=== PATIENT | female | born 1960 | race Hispanic/Latino ===

== ENCOUNTER → 2017-10-07 10:34 | Outpatient (CLI) | payer MEDICAID, SELFPAY ==
--- NOTE | 2017-10-07 10:44 | STE_ITS ---
Reason For Study: CHEST PRESSURE Stress Results Protocol: Waqar Protocol Maximum Predicted HR: 162 bpm Target HR: 138 bpm% Max imum Predicted HR: 82 % DurationHeart Rate Stage (mm:ss) (bpm) BPCom ment BASELINE 96 120/70 STAGE 1 3:00 12 1 140/82 STAGE 2 1:44 13 3 / TIR ED,SOB, FATIGUED, COULD NOT HOLD ON ANYMORE RECOVERY 87 130/82 Stress Duration: 4:44 mm:ss Maximum Stress HR: 133 bpm Baseline Echocardiogram Findings The estimated ejection fraction is 65 %. Stress Echo Wall motion Data Resting WMIntermediate WMStress WM Resting Wall Motion Wall Motion Stress No regional wall motion No regional wall motion abnormalities noted. abnormalities noted. EKG Data The baseline ECG demonstrates normal sinus rhythm with at rate of _ beats per minute. The patient exercised according to the regular Waqar protocol for a total duration of 4:44. The maximum heart rate attained was 148 beats per minute. This was 91% of maximum predicted heart rate. The patient exercised into stage 2 of the Waqar protocol. During stress, there were no ST or T wave changes noted to suggest ischemia. No clinical angina was noted. No arrhythmias noted. Interpretation Summary The estimated ejection fraction is 65 %. Normal adequate treadmill echocardiogram. Negative for ischemia by EKG and echocardiographic criteria. No anginal symptoms noted. No arrhythmias noted. Normal blood pressure response to exercise. Below average exercise capacity for age. Test terminated due to dyspnea and fatigue. Final LVEF of 75%. Mrdering Physician: Dieudonne, Performed By: Corrie De Leon RDCS
== END ==
PROVIDERS: Visit Provider Physician Assistant
DX: R07.9 Chest pain, unspecified (principal)
CPT/HCPCS: 93017; 93350

== ENCOUNTER 2018-03-18 11:32 | Emergency (ER) | payer MEDICAID, SELFPAY ==
[2018-03-18 11:33] VITALS: BP 153/84; PULSE 68; RESP 18; TEMP 36.6; O2SAT 99; BMI 33.6
--- NOTE | 2018-03-18 12:20 | ED.VISSUMM ---
- ER Visit Summary Date of Service: 03/18/18 Chief Complaint: Chronic back pain History of Present Illness: The patient is a 57 F who presents with chronic back pain. She reports chronic back pain for 6 years. This is been worse over the last several months. She does have a primary care physician and states she saw him about 1 month ago the pain she is currently complaining of is similar in character and location to her previous pain but is just worse. She complains of lower back pain more so on the left radiating down the left leg. She also complains of pain radiating towards both groins again this is chronic for years. No recent fall or injury. No fevers urinary retention or fecal incontinence. No numbness or weakness. She also complains of neck pain. She has had epidural injections but no other back surgery. Physical Examination: Afebrile vitals unremarkable Patient resting comfortably no distress Moist mucous membranes Heart regular rate and rhythm Lungs are clear Abdomen soft nontender nondistended Patient does have midline and paraspinal tenderness diffusely in the lower back Straight leg raise is negative in supine position bilaterally Normal strength and sensation of lower extremities with palpable dorsalis pedis pulses and 5 out of 5 dorsiflexion, plantarflexion, extensor hallucis longus Test Results: Not indicated Emergency Department Course and Treatment: Patient was treated here with intramuscular Toradol and Norflex and advised to contact her primary care physician for follow-up. She understands to return for new or worsening symptoms and was discharged home. I did attempt to do an [facility] report but the website is down. Treatment Plan: [] Disposition: Discharge Impression: Chronic back pain This note was generated with [employer] dictation software. It may contain incorrect words, spelling, and punctuation that were not noted in review of the chart prior to signing ED Disposition - Plan for ED Patient: Chief Complaint: Back
--- NOTE | 2018-03-18 12:23 | DCINST.ED_ITS ---
ED Disposition - Plan for ED Patient: Chief Complaint: Back Instructions: ED Spasm Back No Trauma Referrals: Kayla Bro PA [PHYSICIAN OBSTETRICS NURSE] -
[2018-03-18] MEDS: Ketorolac 60 MG/2 ML Vial IM (12:26)
[2018-03-18] MEDS: Orphenadrine 60 MG/2 ML Ampul IM (12:27)
--- OUTSIDE RECORDS SUMMARY | 2018-03-18 12:47 | XMS RPT_ITS ---
:1960 Author Organization OHIP Care Team Providers Name Role Phone JAYCEE CHOUDHARY MD Admitting Unavailable JAYCEE CHOUDHARY MD Attending Unavailable JAYCEE CHOUDHARY MD Primary Care Unavailable BRO, Kayla ARTHUR (PA-C) Attending Unavailable BRO, Kayla ARTHUR (PA-C) Referring Unavailable BRO, Kayla ARTHUR (PA-C) Referring Unavailable JAYCEE CHOUDHARY Referring Unavailable BRO, Kayla ARTHUR (PA-C) Attending Unavailable BRO, Kayla ARTHUR (PA-C) Referring Unavailable BRO, Kayla ARTHUR (PA-C) Attending Unavailable BRO, Kayla ARTHUR (PA-C) Referring Unavailable BRO, Kayla ARTHUR (PA-C) Referring Unavailable BRO, Kayla ARTHUR (PA-C) Referring Unavailable MARC CHAVEZ Attending Unavailable BRO, Kayla ARTHUR (PA-C) Referring Unavailable BRO, Kayla ARTHUR (PA-C) Referring Unavailable BRO, Kayla ARTHUR (PA-C) Referring Unavailable BRO, Kayla ARTHUR (PA-C) Referring Unavailable BRO, Kayla ARTHUR (PA-C) Attending Unavailable BRO, Kayla ARTHUR (PA-C) Referring Unavailable FERNANDO THOMAS Attending Unavailable BRO, Kayla ARTHUR (PA-C) Referring Unavailable ASHLEY ARANGO) Attending Unavailable BRO, Kayla ARTHUR (PA-C) Referring Unavailable BRO, Kayla ARTHUR (PA-C) Attending Unavailable BRO, Kayla ARTHUR (PA-C) Referring Unavailable BRO, Kayla ARTHUR (PA-C) Referring Unavailable BRO, Kayla ARTHUR (PA-C) Referring Unavailable BRO, Kayla ARTHUR (PA-C) Referring Unavailable Kayla BRO (JOSE ANGELC) Referring Unavailable Augusto Gandhi Attending Unavailable Kayla Bro Primary Care Unavailable PROBLEMS PROBLEMS DATE TYPE CONDITION / CODE ATTENDING STATUS SOURCE 07/06/2017 Active Mixed hyperlipidemia NA Active [place] / E78.2(ICD-10) Clinic Main [place] Repository 05/28/2017 Active Other specified NA Active [place] abnormal [facility] immunological [place] findings in serum / Repository R76.8(ICD-10) 01/02/2018 Active Type 2 diabetes NA Active [place] mellitus without [facility] complications / [place] E11.9(ICD-10) Repository 01/02/2018 Active Lower abdominal NA Active [place] pain, unspecified / Clinic Main R10.30(ICD-10) [place] Repository 01/02/2018 Active 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 Main 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 / [place] Z79.899(ICD-10) Repository 09/12/2017 Active Chest pain, NA Active [place] unspecified / Clinic Main R07.9(ICD-10) [place] Repository 07/25/2017 Active Encounter for NA Active [place] screening mammogram Clinic [facility] for malignant [place] neoplasm of breast / Repository Z12.31(ICD-10) 07/06/2017 Active Low back pain / NA Active [place] M54.5(ICD-10) Clinic Main [place] Repository 06/24/2017 Active Unknown / NA Active [place] UNK(Unknown) Clinic Main [place] Repository 06/01/2017 Active Encounter for NA Active [place] screening for lipoid Clinic Main disorders / [place] Z13.220(ICD-10) Repository 05/25/2017 Active Essential (primary) NA Active [place] hypertension / Clinic Main I10(ICD-10) [place] Repository 05/25/2017 Active Fibromyalgia / NA Active [place] M79.7(ICD-10) Clinic Main [place] Repository 05/25/2017 Active Pain in unspecified NA Active [place] joint / Clinic Main M25.50(ICD-10) [place] Repository 05/25/2017 Active Hyperglycemia, NA Active [place] unspecified / Clinic Main R73.9(ICD-10) [place] Repository 04/20/2017 Principle Essential (primary) JAYCEE CHOUDHARY Active [place] Diagnosis hypertension / [facility] I10(ICD-10) Hospital Repository 04/20/2017 Secondary Type 2 diabetes JAYCEE CHOUDHARY Active [place] Diagnosis mellitus without MD [facility] / Hospital E119(ICD-10) Repository PROCEDURES PROCEDURES No Procedure Records FoundRESULTS RESULTS DISCHARGE INSTRUCTION Observed: 03/18/2018 Status: F Source: [place] 12:23 PM [facility] REPOSITORY [facility] Records [address] [place] [address]Svrajfnjl Hvzpmthlyht05/22/18 1222MR#: [id number] Acct: [id number]: REILLY JACOB Rep #: [id number]: 1960 57 From: Augusto Gandhi MDPCP: Status: PRE ERED Disposition- Plan for ED Patient:Chief Complaint: BackInstructions: ED Spasm Back No TraumaReferrals:Kayla Bro PA [PHYSICIAN AUTOMATIC MOLD SANDER] -What to do if you have ProblemsFor any increased pain, shortness of breath, bleeding, nausea or vomiting, chest pain, or anyunexpected problems, contact your Primary Care Provider. Call [facility] ([phone])or report to the closest Emergency Room.Call 911 if necessary.03/18/18 1223 <Electronically signed by Augusto Gandhi MD&gt ;Date Augusto Gandhi [facility] Signature (If Indicated): Date ___CC: EMERGENCY DEPARTMENT Observed: 03/18/2018 Status: F Source: [place] SUMMARY 12:22 PM [facility] REPOSIT[facility] Records [id number] [place] [address]Qvuykirpn Department Psrxpww53/22/18 1220MR#: [id number] Acct: [id number]: REILLY JACOB Rep #: [id number]: 1960 57 From: Augusto Gandhi MDPCP: Status: PRE ER- ER Visit SummaryDate of Service: 03/18/18Chief Complaint: Chronic back painHistory of Present Illness: The patient is a 57 F who presents with chronic back pain. Makedaorts chronic back pain for 6 years. This is been worse over the last several months. Osmany have a primary care physician and states she saw him about 1 month ago the pain she iscurrently complaining of is similar in character and location to her previous pain but is justworse. She complains of lower back pain more so on the left radiating down the left leg. Shealso complains of pain radiating towards both groins again this is chronic for years. Norecent fall or injury. No fevers urinary retention or fecal incontinence. No numbness orweakness. She also complains of neck pain. She has had epidural injections but no other backsurgery.Physical Examination: Afebrile vitals unremarkablePatient resting comfortably no distressMoist mucous membranesHeart regular rate and rhythmLungs are clearAbdomen soft nontender nondistendedPatient does have midline and paraspinal tenderness diffusely in the lower backStraight leg raise is negative in supine position bilaterallyNormal strength and sensation of lower extremities with palpable dorsalis pedis pulses and 5out of 5 dorsiflexion, plantarflexion, extensor hallucis longusTest Results: Not indicatedEmergency Department Course and Treatment: Patient was treated here with intramuscular [place] Norflex and advised to contact her primary care physician for follow-up. She understandsto return for new or worsening symptoms and was discharged home. I did attempt to do an OARRSreport but the website is down.Treatment Plan: []Disposition: DischargeImpression: Chronic back painThis note was generated with LucidEra dictation software. It may contain incorrect words,spelling, and punctuation that were not noted in review of the chart prior to signingED Disposition- Plan for ED Patient:Chief Complaint: BackWhat to do if you have ProblemsFor any increased pain, shortness of breath, bleeding, nausea or vomiting, chest pain, or anyunexpected problems, contact your Primary Care Provider. Call [facility] ([phone])or report to the closest Emergency Room.Call 911 if necessary.03/18/18 1222 <Electronically signed by Augusto Gandhi MD&gt ;Date Augusto COSTAosiveronica Signature (If Indicated): Date ___CC: PROGRESS Observed: 03/08/2018 Status: COMPLETED Source: [place] 4:18 PM [facility] REPOSITORY HNO ID: [id number]: Kimberly Louie) Alejaervice: (none)Author Type: SonographerType: Progress NotesFiled: 03/08/2018 4:19 PMNote Text: Radiology Service Progress NotePATIENT NAME: Reilly CanelaRN: [id number] OF SERVICE: March 08, 2018TIME: 4:18 PMPATIENT IDENTITY VERIFICATION COMPLETED USING TWO (2) METHODS: Patientconfirmed name verbally and Date of .PATIENT GENDER DATA: Female. status: : NoBreastfeeding status: N/APATIENT RELEVANT IMPLANT DATA REVIEWED: Not ApplicableRADIOLOGY DEPARTMENT: UltrasoundPERIPHERAL IV DATA: Not applicableSIGNED BY: KIMBERLY GOODWIN RDMS RVTSept2017 4:18 PM CNCO Observed: 03/08/2018 Status: COMPLETED Source: [place] 4:15 PM [facility] REPOSITORY HNO ID: [id number]: Mammography CoordinatorService: (none)Author Type: PhysicianType: LetterFiled: 03/09/2018 11:33 PMNote Text: March 08, 2018 PID: [id number] [address] [place] [place], [place] [address]Jmvp Ms. Alves,Your recent breast imaging examination performed on 03/08/2018 showed anarea that we believe is probably benign (not cancer). A six monthfollow-up is recommended to ensure your breast health. Please [phone] to schedule an appointment for these tests if you have notalready done so.Early detection of cancer is very important. We also understandrecommendations regarding breast cancer screening are controversial.Please discuss with your primary care provider which strategy is best foryou and whether a mammogram is right for you.Your breast images and report will be kept on file here as part of yourpermanent medical record and are available for your continuing care.Thank you for allowing us to help in meeting your health care needs.Sincerely,Dr. Mahoney [facility]iologistW[facility] (# mo Follow-up) CNCO Observed: 03/08/2018 Status: COMPLETED Source: [place] 4:15 PM [facility] REPOSITORY HNO ID: [id number]: Mammography CoordinatorService: (none)Author Type: PhysicianType: LetterFiled: 03/09/2018 11:33 PMNote Text: March 08, 2018 PID: [id number] [address] [place], [place] [address]Igzy Ms. Alves,Your recent breast imaging examination performed on 03/08/2018 showed anarea that we believe is probably benign (not cancer). A six monthfollow-up is recommended to ensure your breast health. Please [phone] to schedule an appointment for these tests if you have notalready done so.Early detection of cancer is very important. We also understandrecommendations regarding breast cancer screening are controversial.Please discuss with your primary care provider which strategy is best foryou and whether a mammogram is right for you.Your breast images and report will be kept on file here as part of yourpermanent medical record and are available for your continuing care.Thank you for allowing us to help in meeting your health care needs.Sincerely,Dr. Mahoney [facility] (# mo Follow-up) [facility] US BREAST LTD Observed: 03/08/2018 Status: F Source: [facility] 4:13 PM [facility] REPOSITORY * * *Final Report* * *DATE OF EXAM: Mar 08 2018 4:13PM [id number] [id number] - [facility] US BREAST LTD LT / REASON: 6 MONTH LEFT BREAST / ABNORMAL MAMMOGRAM * * * * Physician Interpretation * * * * # [id number] - [facility] DIAGNOSTIC LTUNILATERAL LEFT DIGITAL DIAGNOSTIC MAMMOGRAM WITH CAD: 03/08/2018HISTORY: 6 Month Left Breast / Abnormal Mammogram.RESULT:TECHNIQUE: The study was acquired using full field digital technology and interpreted from soft copy.Current study was also evaluated with a Computer Aided Detection (CAD).Comparison is made to exams dated: 08/03/2017 mammogram - [facility] and 07/25/2017 mammogram - [facility].There are scattered fibroglandular elements in the left breast.There is a 6 mm mass in the left breast at 12 o'clock middle depth.There also is a 4 mm oval equal density focal asymmetry with an obscured margin in the left breast at 12 o'clock anterior depth.No other significant masses or calcifications are seen in the breast.INCOMPLETE: NEEDS ADDITIONAL IMAGING EVALUATIONThe 6 mm mass in the left breast at 12 o'clock middle depth needs additional evaluation.The 4 mm oval equal density focal asymmetry in the left breast at 12 o'clock anterior depth is consistent with a cyst and is benign.#[id number] - [facility] US BREAST LTD LTULTRASOUND OF LEFT BREAST: 03/08/2018RESULT:Comparison is made to exams dated: 08/03/2017 mammogram - [facility] and 07/25/2017 mammogram - [facility].Real- time ultrasound of the left breast was performed.There is a 6 mm area of fibrocystic tissue in the left breast at 12 o'clock middle depth.There also is a benign 4 mm cyst in the left breast at 12 o'clock anterior depth.IMPRESSION: PROBABLY BENIGN - SHORT TERM INTERVAL FOLLOW-UP RECOMMENDED - FOLLOW-UP RECOMMENDEDThe 6 mm area of fibrocystic tissue in the left breast at 12 o'clock middle depth is probably benign.The 4 mm cyst in the left breast at 12 o'clock anterior depth is benign.A follow-up mammogram and an ultrasound in 6 months is recommended to demonstrate stability.Juan Morales/elyse:03/08/2018 16:15:41Imaging Technologist: Madai FREY (R)), [facility] sent[facility] # Mo FU Mammogram BI- RADS: 0 Incomplete: needs additional imaging evaluation Ultrasound BI-RADS: 3 Probably benign finding - short term interval follow-up recommendedTranscriptionist: PenradTranscribe Date/Time: Mar 08 2018 3:49PDictated by : JUAN AHUMADA MDThis examination was interpreted and the report reviewed and electronically signed by: JUAN AHUMADA MD on Mar 08 2018 4:15PM [id number] [facility] DIAGNOSTIC LT Observed: 03/08/2018 Status: F Source: [place] 3:49 PM [facility] REPOSITORY * * *Final Report* * *DATE OF EXAM: Mar 08 2018 3:49PM [id number] - [facility] DIAGNOSTIC LT / REASON: 6 MONTH LEFT BREAST / ABNORMAL MAMMOGRAM * * * * Physician Interpretation * * * *RESULT: #[id number] - [facility] DIAGNOSTIC LTUNILATERAL LEFT DIGITAL DIAGNOSTIC MAMMOGRAM WITH CAD: 03/08/2018HISTORY: 6 Month Left Breast / Abnormal Mammogram.RESULT:TECHNIQUE: The study was acquired using full field digital technology and interpreted from soft copy.Current study was also evaluated with a Computer Aided Detection (CAD).Comparison is made to exams dated: 08/03/2017 mammogram - [facility] and 07/25/2017 mammogram - [facility].There are scattered fibroglandular elements in the left breast.There is a 6 mm mass in the left breast at 12 o'clock middle depth.There also is a 4 mm oval equal density focal asymmetry with an obscured margin in the left breast at 12 o'clock anterior depth.No other significant masses or calcifications are seen in the breast.INCOMPLETE: NEEDS ADDITIONAL IMAGING EVALUATIONThe 6 mm mass in the left breast at 12 o'clock middle depth needs additional evaluation.The 4 mm oval equal density focal asymmetry in the left breast at 12 o'clock anterior depth is consistent with a cyst and is benign.#[id number] - [facility] US BREAST LTD LTULTRASOUND OF LEFT BREAST: 03/08/2018RESULT:Comparison is made to exams dated: 08/03/2017 mammogram - [facility] and 07/25/2017 mammogram - [facility].Real- time ultrasound of the left breast was performed.There is a 6 mm area of fibrocystic tissue in the left breast at 12 o'clock middle depth.There also is a benign 4 mm cyst in the left breast at 12 o'clock anterior depth.IMPRESSION: PROBABLY BENIGN - SHORT TERM INTERVAL FOLLOW-UP RECOMMENDED - FOLLOW-UP RECOMMENDEDThe 6 mm area of fibrocystic tissue in the left breast at 12 o'clock middle depth is probably benign.The 4 mm cyst in the left breast at 12 o'clock anterior depth is benign.A follow-up mammogram and an ultrasound in 6 months is recommended to demonstrate stability.Juan Morales/elyse:03/08/2018 16:15:41Imaging Technologist: Madai FAUST)(Kayla), [facility] Centerletter sent: # Mo FU Mammogram BI- RADS: 0 Incomplete: needs additional imaging evaluation Ultrasound BI-RADS: 3 Probably benign finding - short term interval follow-up recommendedTranscriptionist: ElyseTranscribcecilia Date/Time: Mar 08 2018 3:49PDictated by: JUAN AHUMADA MDThilesli examination was interpreted and the report reviewed and electronically signed by: JUAN AHUMADA MD on Mar 08 2018 4:15PM [id number] [id number] Observed: 01/02/2018 Status: COMPLETED Source: [place] 11:53 AM [facility] REPOSITORY HNO ID: [id number]: Kayla Arthur (Keren) BartonService: (none)Author Type: Physician AssistantType: Progress NotesFiled: 01/02/2018 9:05 PMNote Text:57 year old female with assistance of a web user experience strategist via telephonec/o1. Pain is good and bad at times. Feels much better on gabapentin. Saw who agrees not lupus. Note reviewed. Recommended PT but patient wasnot able to meet set appointment, distance issues. Today having neck painmostly on the left side posteriorly. No pain radiating. Patient is notcurrently working.2. Blood sugars 127, 131 at home.Hemoglobin A1C (%)Date Value05/25/2017 6.8 ) 3. HTN controlled: taking medication without complication. Denies chestpain, headache , dizziness.HISTORIESFAMILY HISTORYProblem Relation Age of Onset- Cancer Mother uterine- Diabetes Father- Other [OTHER] Father of sepsis due to liver failure- Hypertension Sister- Diabetes Sister- Hypertension Brother- Diabetes BrotherPAST MEDICAL HISTORYDiagnosis Date- Chronic back pain- Chronic neck pain- Elevated glucose 07/2016- HTN (hypertension) 2013PAST SURGICAL HISTORYProcedure Laterality Date- SECTION HX 3 times- HYSTERECTOMY 2007Social History Marital status: Single Spouse name: Years of education: Number of children:Social History Main Topics Smoking status: Former Smoker Packs/ day: 0.00 Years: 0.00 Smokeless tobacco: Never Used Alcohol use: No Drug use : No Sexual activity: NoACTIVE PROBLEM LISTAna PositivePolyarthralgiaControlled Type 2 Diabetes Mellitus Without Complication (Hcc)Neck PainLumbar PainHyperlipidemia, MixedFibromyalgiaPrecordial PainCurrent Outpatient Prescriptions:glipiZIDE (GLUCOTROL) 5 mg tablet Take 1 tablet by mouth once daily. Disp:90 tablet Rfl: 1atorvastatin (LIPITOR) 10 mg tablet Take 1 tablet by mouth daily atbedtime. For cholesterol. Disp: 30 tablet Rfl: 5losartan (COZAAR) 25 mg tablet Take 1 tablet by mouth once daily. Disp: 30tablet Rfl: 5mupirocin (BACTROBAN) 2 % ointment Apply 1 application to affected areathree times daily. Location: scalp Disp: 15 g Rfl: 1baclofen (LIORESAL) 20 mg tablet Take 20 mg by mouth once daily. Disp:Rfl: gabapentin (NEURONTIN) 300 mg capsule Start with one tab daily x 5 daysHS, if tolerated increase to BID x 5 days and then to TID if toleratedDisp: 90 capsule Rfl: 5clotrimazole-betamethasone (LOTRISONE) cream Apply 1 application toaffected area twice daily. UNTIL CLEAR FOR UP TO 2-3 WEEKS Disp: 15 g Rfl:1blood sugar diagnostic (BLOOD GLUCOSE TEST) test strip Test blood sugar(s)1 times daily. Dx: Type 2 DM - Controlled E11.9 Insulin: No Disp: 50Strip Rfl: 5Lancets lancets Test blood sugar(s) 1 times daily. Dx: Type 2 DM -Controlled E11.9 Insulin: No Disp: 100 Each Rfl : 3Blood-Glucose Meter monitoring kit Glucose Meter of Choice - Kit - Dx:Other DM Code hyperglycemia Disp: 1 Each Rfl: 0No current facility-administered medications for this visit.DILATED RETINAL EXAM due on 1959URINE ALBUMIN CREATININE RATIO due on 1975ONE PNEUMOVAX PRIOR TO AGE 65 due on 1975DTAP,TDAP,TD(1 - Tdap) due on 1978PAP EVERY 5 YEARS due on 1989HPV EVERY 5 YEARS due on 1989COLORECTAL CANCER SCREENING,SEE MODIFIER due on 2009ZOSTER VACCINE (SHINGRIX)(1 of 2) due on 2009HBA1C due on 11/22/2017EXAM:BP 138/80 Pulse 68 Temp 37.2 ?C (99 ?F) (Tympanic) Resp 16 Wt80.3 kg (177 lb) BMI 32.37 kg/m?Pleasant overweight adult woman in no acute distress. Alert and orientedall spheres. Normal affect and cognition. Speech normal. No deficits tolearning or comprehension.Skin warm, dry, pink to lips and nailbeds. Normal turgor.Respirations regular and unlabored.HEENT WNL. TM's clear. Nose and oropharynx free from injection or lesion.No cervical lymph nodes. Thyroid non-tender, no masses.Chest CTA. HRRR without murmur or gallop.Neck is supple with full range of motion, complains of pain on palpationover lateral muscles and also somewhat with range of motion. Myofascialrelease to tender trigger points with improvement.Extrem: no clubbing , cyanosis, edema. Extremities are warm and pink withprompt capillary refill.ASSESSMENT/PLAN:1. Polyarthralgia - ICD9: 719.49, ICD10: M25.50 (primary diagnosis)Followed by Dr. Arango: recheck 1 year.2. Hyperlipidemia, mixed - ICD9 : 272.2, ICD10: E78.2- good control- Continue current medication.- ATORVASTATIN 10 MG TABLET3. Controlled type 2 diabetes mellitus without complication, unspecifiedwhether fci insulin use (HCC) - ICD9: 250.00, ICD10: E11.9Controlled.- Continue current medications- LOSARTAN 25 MG TABLET- GLIPIZIDE 5 MG TABLET- complete outstanding labs.4. Fibromyalgia - ICD9: 729.1, ICD10: M79.7- BACLOFEN 20 MG TABLET5. Hypertension, essential - ICD9: 401.9, ICD10: I10- good control- Recommended regular aerobic exercise.- Recommend home blood pressure monitoring, to bring results in on nextvisit- Goal of BP <130/80- LOSARTAN 25 MG TABLET f /u 6 monthsM Kelvin Bro PA-C CNOV Observed: 01/02/2018 Status: COMPLETED Source: [place] 11:00 AM [facility] REPOSITORY Office Visit (FAMPWS) ---------REILLY ALVES ([id number]) 1960 F [employer] Time Provider Department01/02/18 11:00 AM Kayla BRO) FAMPWS During your visit today, we recorded the following information about you: Temperature Pulse Respiration Blood pressure 99 degrees 68/minute 16/minute 138/80 Weight 80.3 kgM Kelvin Bro PA-C 01/02/2018 9:05 PM Rckccc54 year old female with assistance of a web user experience strategist via telephone c/o1. Pain is good and bad at times. Feels much better on gabapentin. Saw who agrees not lupus. Note reviewed. Recommended PT but patient was notable to meet set appointment, distance issues. Today having neck pain mostlyon the left side posteriorly. No pain radiating. Patient is not currentlyworking.2. Blood sugars 127, 131 at home.Hemoglobin A1C (%)Date Value05/25/2017 6.8 )3. HTN controlled: taking medication without complication. Denies chest pain,headache, dizziness.HISTORIESFAMILY HISTORYProblem Relation Age of Onset- Cancer Mother uterine- Diabetes Father- Other [OTHER] Father of sepsis due to liver failure- Hypertension Sister- Diabetes Sister- Hypertension Brother- Diabetes BrotherPAST MEDICAL HISTORYDiagnosis Date- Chronic back pain- Chronic neck pain- Elevated glucose 07/2016- HTN (hypertension) 2012PA SURGICAL HISTORYProcedure Laterality Date- SECTION HX 3 times- HYSTERECTOMY 2007Social History Marital status: Single Spouse name: Years of education: Number of children:Social History Main Topics Smoking status: Former Smoker Packs/ day: 0.00 Years: 0.00 Smokeless tobacco: Never Used Alcohol use: No Drug use: No Sexual activity: NoACTIVE PROBLEM LISTAna PositivePolyarthralgiaControlled Type 2 Diabetes Mellitus Without Complication (Hcc)Neck PainLumbar PainHyperlipidemia, MixedFibromyalgiaPrecordial PainCurrent Outpatient Prescriptions:glipiZIDE (GLUCOTROL) 5 mg tablet Take 1 tablet by mouth once daily. Disp: 90tablet Rfl: 1atorvastatin (LIPITOR) 10 mg tablet Take 1 tablet by mouth daily at bedtime.For cholesterol. Disp: 30 tablet Rfl: 5losartan (COZAAR) 25 mg tablet Take 1 tablet by mouth once daily. Disp: 30tablet Rfl: 5mupirocin (BACTROBAN) 2 % ointment Apply 1 application to affected area threetimes daily. Location: scalp Disp: 15 g Rfl: 1baclofen (LIORESAL) 20 mg tablet Take 20 mg by mouth once daily. Disp: Rfl:gabapentin (NEURONTIN) 300 mg capsule Start with one tab daily x 5 days HS , iftolerated increase to BID x 5 days and then to TID if tolerated Disp: 90capsule Rfl: 5clotrimazole -betamethasone (LOTRISONE) cream Apply 1 application to affectedarea twice daily. UNTIL CLEAR FOR UP TO 2-3 WEEKS Disp: 15 g Rfl: 1blood sugar diagnostic (BLOOD GLUCOSE TEST) test strip Test blood sugar(s) 1times daily. Dx: Type 2 DM - Controlled E11.9 Insulin: No Disp: 50 Strip Rfl: 5Lancets lancets Test blood sugar(s) 1 times daily. Dx: Type 2 DM - NkunsphzfuC52.9 Insulin: No Disp: 100 Each Rfl: 3Blood-Glucose Meter monitoring kit Glucose Meter of Choice - Kit - Dx: OtherDM Code hyperglycemia Disp: 1 Each Rfl: 0No current facility-administered medications for this visit.DILATED RETINAL EXAM due on 1959URINE ALBUMIN CREATININE RATIO due on 1975ONE PNEUMOVAX PRIOR TO AGE 64 due on 1975DTAP,TDAP,TD(1 - Tdap) due on 1978PAP EVERY 5 YEARS due on 09/1989HPV EVERY 5 YEARS due on 1989COLORECTAL CANCER SCREENING,SEE MODIFIER due on 2009ZOSTER VACCINE (SHINGRIX)(1 of 2) due on 2009HBA1C due on 11/22/2017EXAM:BP 138/80 Pulse 68 Temp 37.2 ?C (99 ?F) (Tympanic) Resp 16 Wt 80.3kg (177 lb) BMI 32.37 kg/m?Pleasant overweight adult woman in no acute distress. Alert and oriented allspheres. Normal affect and cognition. Speech normal. No deficits to learning orcomprehension.Skin warm, dry, pink to lips and nailbeds. Normal turgor.Respirations regular and unlabored.HEENT WNL. TM's clear. Nose and oropharynx free from injection or lesion. Nocervical lymph nodes. Thyroid non-tender, no masses.Chest CTA. HRRR without murmur or gallop.Neck is supple with full range of motion, complains of pain on palpation overlateral muscles and also somewhat with range of motion. Myofascial release totender trigger points with improvement.Extrem: no clubbing, cyanosis, edema. Extremities are warm and pink with promptcapillary refill.ASSESSMENT/PLAN:1. Polyarthralgia - ICD9: 719.49, ICD10: M25.50 ( primary diagnosis)Followed by Dr. Arango: recheck 1 year.2. Hyperlipidemia, mixed - ICD9: 272.2, ICD10: E78.2 - good control- Continue current medication.- ATORVASTATIN 10 MG TABLET3. Controlled type 2 diabetes mellitus without complication, unspecifiedwhether fci insulin use (HCC) - ICD9: 250.00, ICD10: E11.9Controlled.- Continue current medications- LOSARTAN 25 MG TABLET- GLIPIZIDE 5 MG TABLET- complete outstanding labs.4. Fibromyalgia - ICD9: 729.1, ICD10: M79.7- BACLOFEN 20 MG TABLET5. Hypertension, essential - ICD9: 401.9, ICD10: I10- good control- Recommended regular aerobic exercise. - Recommend home blood pressure monitoring, to bring results in on next visit- Goal of BP <130/80 - LOSARTAN 25 MG TABLET f/u 6 monthsM PAZ Sanderson-CReferring Provider: Kayla BRO (KEREN) [[id number]]Allergies As of Date: 01/02/2018 Noted Allergy ReactionASPIRIN 05/25/2017 10 - AnaphylaxisIBUPROFEN 05/25/2017 10 - AnaphylaxisDate Reviewed: 01/02/2018Reviewed by: Mariluz Neville LPN - Fully AssessedReason for Visit: F/ U 3 Month [443] Cmt: lipids and diabetesReason For Visit History RecordedPrimary Visit Diagnosis: Polyarthralgia [M25.50] Other Visit Diagnoses:Hyperlipidemia, mixed [E78.2] Controlled type 2 diabetes mellitus without complication, 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 For cholesterol.Disp: 30 tabletRfl: 5 losartan ( COZAAR) 25 mg tabletTake 1 tablet by mouth once daily.Disp: 30 tabletRfl: 5 glipiZIDE ( GLUCOTROL) 5 mg tabletTake 1 tablet by mouth once daily.Disp: 90 tabletRfl: 1 baclofen ( LIORESAL) 20 mg tabletTake 1 tablet by mouth once daily.Disp: 30 tabletRfl: 5Prescriptions as of 01/02/2018 Sig: ATORVASTATIN 10 MG TABLET Take 1 tablet by mouth daily * LOSARTAN 25 MG TABLET Take 1 tablet by mouth once d* GLIPIZIDE 5 MG TABLET Take 1 tablet by mouth once d* MUPIROCIN 2 % TOPICAL OINTMENT Apply 1 application to affect* BACLOFEN 20 MG TABLET Take 1 tablet by mouth once d* GABAPENTIN 300 MG CAPSULE Start with one tab daily x 5 * CLOTRIMAZOLE-BETAMETHASONE 1 * Apply 1 application to affect* BLOOD SUGAR DIAGNOSTIC STRIPS Test blood sugar(s) 1 times d* LANCETS Test blood sugar(s ) 1 times d* BLOOD-GLUCOSE METER KIT Glucose Meter of Choice - Kit*Problem List As Of Date 01/02/2018 Noted Resolved LINDSAY positive [R76.8] INVALID FOR* More... Polyarthralgia [M25.50] INVALID FOR* Controlled type 2 diabetes mellitus without com*INVALID FOR* Neck pain [M54.2] INVALID FOR* Lumbar pain [M54.5] INVALID FOR* Hyperlipidemia, mixed [E78.2] INVALID FOR* Fibromyalgia [M79.7] INVALID FOR* Precordial pain [R07.2] INVALID FOR* More... Hypertension, essential [I10] INVALID FOR*Prescriptions ordered this encounter Disp Refills Start End ATORVASTATIN 10 MG TABLET 30 t* 5 01/02/2018 Route: ORAL Sig: Take 1 tablet by mouth daily at bedtime. For cholesterol. LOSARTAN 25 MG TABLET 30 t* 5 01/02/2018 Route: ORAL Sig: Take 1 tablet by mouth once daily. GLIPIZIDE 5 MG TABLET 90 t* 1 01/02/2018 Route: ORAL Sig: Take 1 tablet by mouth once daily. BACLOFEN 20 MG TABLET 30 t* 5 01/02/2018 Route: ORAL Sig: Take 1 tablet by mouth once daily.Medications Discontinued During This Encounter atorvastatin (LIPITOR) 10 mg tablet 30 t* 5 201701/02/2018 Route: ORAL Sig: Take 1 tablet by mouth daily at bedtime. For cholesterol. Disc : Reason for discontinue is not on file. losartan (COZAAR) 25 mg tablet 30 t* 5 201701/02/2018 Route: ORAL Sig: Take 1 tablet by mouth once daily. Disc: Reason for discontinue is not on file. glipiZIDE (GLUCOTROL) 5 mg tablet 90 t* 1 09/12/2017 01/02/2018 Route: ORAL Sig: Take 1 tablet by mouth once daily. Disc: Reason for discontinue is not on file. baclofen (LIORESAL) 20 mg tablet 01/02/2018 Class: Historical Med Route: ORAL Sig: Take 20 mg by mouth once daily. Disc: Reason for discontinue is not on file. Status:Closed by Kayla BRO PA-C on 01/02/18 CNOV Observed: 09/30/2017 Status: COMPLETED Source: [place] 12:40 PM [facility] REPOSITORY Office Visit (JEET) ---------REILLY ALVES ([id number]) 1960 F [place] Time Provider Department09/30/17 12:40 PM ASHLEY ARANGO MD During your visit today, we recorded the following information about you: Temperature Pulse Blood pressure Weight 97.8 degrees 74/minute 134/78 83 kg Height 1.575 Jani Arango MD 09/30/2017 1:48 PM SignedOn 09/30/2017, I had the pleasure of seeing Reilly Alves at the [facility]. Reilly Alves was referred by Kayla Arthur(Keren) Dieudonne for an opinion and advice regarding joint pain. My findings andfinal recommendations will be communicated to the requesting health careprovider by way of the shared medical record for internal providers or lettervia the [facility] [facility] for external providers.Chief complaint: Joint pain, +ANAHPI:To review, Reilly Alves is a 57 year old female present with friend whotranslated- Since , with pain in the back, neck, arms , wrists, MCPs, PIPs, DIPs, hips,knees, and legs. Pain worse with activity. Worst in the morning.- In May, presented to primary care with joint pain. Labs with +LINDSAY.Started on course of prednisone- In Jun, reported to primary care that prednisone 40mg/day with taper over18 days did not help with joint pain. Started on neurontin, with each doselasting 2 hours.- Today, reports taking neurontin on average twice daily (script says to takethree times daily if tolerated). With 50% improvement in pain for the 2 hoursfollowing neurontin dose.- Has rash over back. Has rash in sun over back. - Morning stiffness x30 minutes- Fingers turn red with cold exposure, fingernails sometimes purplePAST MEDICAL HISTORYDiagnosis Date- Chronic back pain- Chronic neck pain- Elevated glucose 07/2016- HTN (hypertension) 2012FibromyalgiaDMHLAsthmaSeizuresPAST SURGICAL HISTORYProcedure Laterality Date- SECTION HX 3 times- HYSTERECTOMY 2007ALLERGIESAllergen Reactions- Aspirin Anaphylaxis- Ibuprofen AnaphylaxisMEDICATIONS:Current Outpatient Prescriptions:baclofen (LIORESAL) 20 mg tablet Take 20 mg by mouth once daily.gabapentin (NEURONTIN) 300 mg capsule Start with one tab daily x 5 days HS, iftolerated increase to BID x 5 days and then to TID if toleratedglipiZIDE (GLUCOTROL) 5 mg tablet Take 1 tablet by mouth once daily.atorvastatin (LIPITOR) 10 mg tablet Take 1 tablet by mouth daily at bedtime.For cholesterol.losartan ( COZAAR) 25 mg tablet Take 1 tablet by mouth once daily.mupirocin (BACTROBAN) 2 % ointment Apply 1 application to affected area threetimes daily. Location: scalpblood sugar diagnostic (BLOOD GLUCOSE TEST) test strip Test blood sugar(s) 1times daily. Dx: Type 2 DM - Controlled E11.9 Insulin: NoLancets lancets Test blood sugar(s) 1 times daily. Dx: Type 2 DM - YnxegrvilrK50.9 Insulin: NoBlood- Glucose Meter monitoring kit Glucose Meter of Choice - Kit - Dx: OtherDM Code hyperglycemiaclotrimazole -betamethasone (LOTRISONE) cream Apply 1 application to affectedarea twice daily. UNTIL CLEAR FOR UP TO 2-3 WEEKSNo current facility-administered medications for this visit.FAMILY HISTORYProblem Relation Age of Onset- Cancer Mother uterine- Diabetes Father- Other [OTHER] Father of sepsis due to liver failure- Hypertension Sister- Diabetes Sister- Hypertension Brother- Diabetes BrotherSOCIAL HISTORY: Lives in [place]. 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.Social History Marital status: Single Spouse name: Years of education: Number of children:Social History Main Topics Smoking status: Former Smoker Packs/day: 0.00 Years: 0.00 Smokeless status: Never Used Alcohol use: No Drug use: No Sexual activity: NoREVIEW OF SYSTEMS: Bolded items below are presentCONSTITUTIONAL: Negative for fever, fatigue, unintentional weight lossEYES: Negative for pain, redness, loss of vision, drynessENM ANDamp; T: Negative for nose bleeds, hearing loss, mouth sores, dysphagia,dry mouthCV: Negative for chest pain, swelling in legs or feetRESPIRATORY: Negative for shortness of breath, pain with breathing, chroniccough, coughing up bloodGI: Negative for GERD, nausea, diarrhea, bloody or black stool, abdominal painGENITOURINARY: Negative for bloody urine, pain with urinationMSK: Negative for joint pain, joint swelling, morning stiffness in joints,muscle weakness, back painSKIN: Negative for rash, sun sensitive rashes, color changes of hands or feetin the cold, hair loss, nail changesNEURO: Negative for headaches, dizziness, paresthesia, memory loss, seizureHEME/LYMPH : Negative for swollen glands, anemiaALLERGIC/IMMUNOLOGIC: Negative for allergies (other than medications),increased susceptibility to infectionOTHER CONDITIONS: DM, THYROID, HTNPHYSICAL EXAM: VITALS: Blood pressure 134/78, pulse 74, temperature 36.6 ?C (97.8 ?F),temperature source Oral, height 157.5 cm (5' 2ANDquot;), weight 83 kg (183 lb).CONSTITUTIONAL: Well-appearing, in NAD.SKIN: Hyperpigmented macules over lower back with one area of excoriation. Noalopecia. No sclerodactyly, calcinosis, telangiectasias, digitial ulcers, orskin thickening.EYES: No scleral icterus or conjunctivitis, PERRLA.ENT and Mouth: External ears normal. Nares normal. Mucous membranes normal.Oropharynx normal. No oral ulcers. TNECK: No lymphadenopathy, limited range of motionRESPIRATORY: Normal breath sounds, clear to auscultation.CARDIOVASCULAR: Regular rate and rhythm, no murmurs or rubsGASTROENTEROLOGY: Normal bowel sounds. Abdomen is soft and non-tender.EXTREMITIES/LYMPH: No edema bilaterallyNEURO: Awake, alert and oriented, antalgic gait, Strength 5/5 in upper andlower extremity muscles bilaterally, Reflexes symmetrical.MUSCULOSKELETAL:JOINT APPEARANCE: No erythema or warmth of any upper or lower extremity joint.RANGE OF MOTION: All upper and lower extremity joints with full range ofmotion. Able to fully close fists and curl fingers bilaterally.SWOLLEN JOINTS /SYNOVITIS: No synovitis of any joint.TENDER JOINTS: Diffuse tenderness to palpation of the shoulders, elbows,wrists, MCPs, PIPs, DIPs, knees, ankles and MTPs along with all interveningregions including the arms, hands, thighs and calvesWidespread Pain Index: 15 (0-19)Symptoms Severity Scale: 11 (0-12)WPIANDgt;7 and SS ScaleANDgt;5 OR WPI 3-6 and SS Scale ANDgt;9 consistent withfibromyalgiaLABORATORY:Component Latest Ref Rng ANDamp; Units 05/25/2017WBC 3.70 - 11.00 k/uL 6.31RBC 3.90 - 5.20 m/uL 4.29Hemoglobin 11.5 - 15.5 g/dL 13.1Platelet Count 150 - 400 k/uL 256Albumin 3.9 - 4.9 g/dL 4.2Calcium 8.5 - 10.2 mg/dL 9.3Bilirubin, Total 0.2 - 1.3 mg/dL ANDlt;0.2 (L)Alkaline Phosphatase 32 - 117 U/L 74AST 13 - 35 U/L 26Glucose 74 - 99 mg/dL 136 (H)BUN 7 - 21 mg/dL 13Creatinine 0.58 - 0.96 mg/dL 0.79Sodium 136 - 144 mmol/L 140Potassium 3.7 - 5.1 mmol/L 3.5 (L)Chloride 97 - 105 mmol/L 102CO2 22 - 30 mmol/L 26Anion Gap 9 - 18 mmol/L 12ALT 7 - 38 U/L 24eGFR- ANDgt;60eGFR-All Other Races . ANDgt;60Component Latest Ref Rng ANDamp; Units 05/25/2017 06/01/2017Hep A Ab, IgM Negative NegativeHep B Surface Ag Negative NegativeHCV RNA by PCR IU/mL HCV RNA not detected by PCR.Hep B Core Ab, IgM Negative NegativeANA Negative Positive (A)LINDSAY Titer Negative 1:1280 (A)LINDSAY Pattern NucleolarWSR 0 - 20 mm/hr 9CRP ANDlt;0.9 mg/dL 0.2Rheumatoid Factor ANDlt;16 IU/mL ANDlt;10TSH 0.400 - 5.500 uU/mL 1.120CCP Antibody, IgG ANDlt;20 Units ANDlt;15Hep C Antibody IA Negative NegativeRibosomal SHELL ASSEMBLER Ab ANDlt;1.0 AI ANDlt;0.2PM-Scl Antibody Negative NegativeDNA Antibody ANDlt;30 IU/mL ANDlt;12RNA Polymerase III Ab 0 - 19 Units 8Anti-Centromere Ab Negative NegativeJo 1 Antibody ANDlt;1.0 AI ANDlt;0.2Anti-SSA ANDlt;1.0 AI ANDlt;0.2Anti-SSB ANDlt;1.0 AI ANDlt; 0.2STUDIES:*Jun xray L-spine- IMPRESSION: ?Lumbar spine degenerative changes withmultilevel disc spacenarrowing. ?L1 vertebral body compression deformity/age indeterminateFracture.*Jun xray C- spine- IMPRESSION: ?Cervical spine degenerative changes withmultilevel disc space narrowing.IMPRESSION and PLAN:1. Positive LINDSAY: Explained that lupus is unlikely given lack of usuallyassociated clinical features. Furthermore, would have expected a response injoint pain to high dose prednisone 40mg/day with taper. Abnormal LINDSAY is presentin a nucleolar pattern, without features of systemic sclerosis present.Explained that an abnormal LINDSAY is not definitively diagnostic of any particularcondition and must be interpreted according to the clinical context. Explainedthat the LINDSAY can be abnormal in a subset of people without any associatedautoimmune disease. However, advised that sometimes lab abnormalities canprecede onset of clinical symptoms, so advised continuing to be followed inrheumatology at least annually to monitor for emergence of new clinical features- Check labs. Mail results- Explained that the criteria for lupus is not met at this time- Advised at least annual monitoring in rheumatology2. Fibromyalgia: Meets criteria based on WPI/SS scale score as above.- Explained diagnosis and provided literature on fibromyalgia for review- Advised aerobic exercise- Advised to increase neurontin dose to 300mg tid per PCP, and then discusswith PCP about increasing dose further- Please refer to the fibromyalgia treatment guidelines as detailed below forfurther management by PCP3. Rash: Over lower back, atypical for lupus- Given referral to dermatology4. Back pain:- Given referral to PT5. General health maintenance:- Advised to continue follow-up with PCP for routine health maintenance andmalignancy screeningFollow-up in 6 months with Albino, 1 year with me. Patient was instructed tocall if any new or worsening symptoms.Thank you for allowing me to participate in the care of your patient.Ashley Arango MDTreatment Recommendations for Fibromyalgia developed by Dr. Sanket Wisdom M.D.1. Medications: We recommend first trying a tricyclic antidepressant such ascyclobenzaprine (Flexeril) or amitriptyline (Elavil) in patients who have notyet had an adequate trial of this class of medications. We prefer Flexeril.Although Flexeril is generally marketed as a muscle relaxant, the similaritiesin chemical structure to the tricyclic antidepressants make it a very usefulmedication to treat pain and it can also be helpful for treating sleepdisturbance. Begin Flexeril at a dose of 5 mg 2-3 hours before bedtime.Taking the medication in this fashion can help decrease morning grogginess.Increase the dose by 5 mg every week as tolerated until a total dose of 20 mgis achieved. Increased fluid intake may decrease the incidence of dry mouthand constipation. Patients should also be warned about potential weight gain.Amitriptyline (Elavil) can be used similarly in doses starting at 10 mg beforebedtime, increasing by 10 mg weekly as tolerated up to 50 mg. Nortriptyline isalso a good choice for many people.If maximum tolerated doses of trycyclics are not providing adequate painrelief, we recommend addition (if Flexeril/Elavil is helping) or substitutionof a dual reuptake inhibitor such as Cymbalta ( duloxetine) or Savella(milnacipran). Such drugs may be the drug of first choice in fibromyalgiapatients with prominent depression or fatigue, as they often work well forthese co-morbid symptoms (in addition to treating pain). Begin Cymbalta at 30mg once daily with food. The dose can eventually be increased up to a total of120 mg per day as tolerated, taken either as a single night time dose or b.i.d. Begin Savella at 25 mg, slowly increasing the dose as tolerated to a maximumof 100mg daily (e.g. 50 mg b.i.d.). Both drugs may initially cause nausea,palpitations, and other ? noradrenergic? side effects, so patients should beinstructed that this may happen. These side effects usually resolve over time.Another class of medication with proven efficacy in fibromyalgia are lilxecip-2-kksjt ligands, Neurontin (gabapentin) and Lyrica (pregabalin). Thisclass of drug might be the best first choice for a fibromyalgia patient withprominent sleep problems. Lyrica is specifically approved for fibromyalgia, atdoses of both 300 and 450mg. For Neurontin, doses typically in the range [id number] ? 3000 mg are necessary to treat pain. Both drugs are better tolerated ifmost or even all of the dose is taken at bedtime (e.g. 150 mg in the morningand 300 mg at night for Lyrica, or 600 mg in the morning and 1200 mg at nightfor Neurontin).Some of the other medications that can be helpful in some fibromyalgia patientsare higher doses of older SSRI?s such as Prozac, Zoloft, or Paxil. Dosageshigher than those typically used for treating depression (e.g. 40 ? 50 mg ofProzac) are often necessary as it appears that at these higher dosages theimportant noradrenergic activity of these drugs becomes more prominent. Gammahydroxybutyrate (particularly in those with significant sleep problems) anddopamine agonists (in those with co-morbid restless leg syndrome) can also behelpful in subsets of fibromyalgia patients.2. Non-pharmacologic management: Activity/exercise. A stahl aspect offibromyalgia management is for the patient to appreciate that when theirsymptom(s) decrease in response to pharmacologic therapy, they mustcorrespondingly increase their function. For example, when medication( s)diminishes pain, fatigue or other symptoms by 20%, this should lead to a 20%increase in activity /function. Such an increase in function and activity mayresult in a continuing reduction in complaints of pain, fatigue, etc. and mayalso diminish associated depressive and anxiety symptoms.We highly recommend patients make use of the [employer] website,(www.fib[employer]Kne[employer]Local.com), that provides a self- management program for people livingwith fibromyalgia. When tested in a trial, this was shown to be quite effectiveat improving symptoms.3. Chronic Pain Rehabilitation Program: We urge patients to attend the ChronicPain Rehabilitation Program here at [facility]. This program enablespatients to be cared for by a multidisciplinary team of providers includingexperts in pain management, stress management training, physical andoccupational therapy, vocational rehabilitation, nursing, nutrition , andpsychotherapy. If you are interested, please call [phone] to schedule an appointment for evaluation.Penny Luz Ma 09/30/2017 12:42 PM AddendumTalk to your primary care provider about increasing neurontin. In the meantime,you can take neurontin 1 tablet three time daily__Treatment Recommendations for Fibromyalgia developed by Dr. Sanket Wisdom M.D.1. Medications: We recommend first trying a tricyclic antidepressant such ascyclobenzaprine (Flexeril) or amitriptyline (Elavil) in patients who have notyet had an adequate trial of this class of medications. We prefer Flexeril.Although Flexeril is generally marketed as a muscle relaxant, the similaritiesin chemical structure to the tricyclic antidepressants make it a very usefulmedication to treat pain and it can also be helpful for treating sleepdisturbance. Begin Flexeril at a dose of 5 mg 2-3 hours before bedtime.Taking the medication in this fashion can help decrease morning grogginess.Increase the dose by 5 mg every week as tolerated until a total dose of 20 mgis achieved. Increased fluid intake may decrease the incidence of dry mouthand constipation. Patients should also be warned about potential weight gain.Amitriptyline (Elavil) can be used similarly in doses starting at 10 mg beforebedtime, increasing by 10 mg weekly as tolerated up to 50 mg. Nortriptyline isalso a good choice for many people.If maximum tolerated doses of trycyclics are not providing adequate painrelief, we recommend addition (if Flexeril/Elavil is helping) or substitutionof a dual reuptake inhibitor such as Cymbalta (duloxetine) or Savella(milnacipran). Such drugs may be the drug of first choice in fibromyalgiapatients with prominent depression or fatigue, as they often work well forthese co-morbid symptoms (in addition to treating pain). Begin Cymbalta at 30mg once daily with food. The dose can eventually be increased up to a total of120 mg per day as tolerated, taken either as a single night time dose or b.i.d. Begin Savella at 25 mg, slowly increasing the dose as tolerated to a maximumof 100mg daily (e.g. 50 mg b.i.d.). Both drugs may initially cause nausea, palpitations, and other ?noradrenergic? side effects, so patients should beinstructed that this may happen. These side effects usually resolve over time.Another class of medication with proven efficacy in fibromyalgia are axlkvkhl-4-tjjgp ligands, Neurontin (gabapentin) and Lyrica (pregabalin). Thisclass of drug might be the best first choice for a fibromyalgia patient withprominent sleep problems. Lyrica is specifically approved for fibromyalgia, atdoses of both 300 and 450mg. For Neurontin, doses typically in the range [id number] ? 3000 mg are necessary to treat pain. Both drugs are better tolerated ifmost or even all of the dose is taken at bedtime (e.g. 150 mg in the morningand 300 mg at night for Lyrica, or 600 mg in the morning and 1200 mg at nightfor Neurontin).Some of the other medications that can be helpful in some fibromyalgia patientsare higher doses of older SSRI?s such as Prozac, Zoloft, or Paxil. Dosageshigher than those typically used for treating depression (e.g. 40 ? 50 mg ofProzac) are often necessary as it appears that at these higher dosages theimportant noradrenergic activity of these drugs becomes more prominent. Gammahydroxybutyrate (particularly in those with significant sleep problems) anddopamine agonists (in those with co-morbid restless leg syndrome) can also behelpful in subsets of fibromyalgia patients.2. Non-pharmacologic management: Activity/ exercise. A stahl aspect offibromyalgia management is for the patient to appreciate that when theirsymptom(s) decrease in response to pharmacologic therapy, they mustcorrespondingly increase their function. For example, when medication(s)diminishes pain, fatigue or other symptoms by 20%, this should lead to a 20%increase in activity/function. Such an increase in function and activity mayresult in a continuing reduction in complaints of pain, fatigue, etc. and mayalso diminish associated depressive and anxiety symptoms.We highly recommend patients make use of the [employer] website,( www.fib[employer]KnexxLocal.com), that provides a self-management program for people livingwith fibromyalgia. When tested in a trial, this was shown to be quite effectiveat improving symptoms.3. Chronic Pain Rehabilitation Program : We urge patients to attend the ChronicPain Rehabilitation Program here at [facility]. This program enablespatients to be cared for by a multidisciplinary team of providers includingexperts in pain management, stress management training, physical andoccupational therapy, vocational rehabilitation, nursing, nutrition, andpsychotherapy. If you are interested, please call [phone] to schedule an appointment for evaluation.Referring Provider: Kayla BRO (KEREN) [[id number] ]Allergies As of Date: 09/30/2017 Noted Allergy ReactionASPIRIN 05/25 10 - AnaphylaxisIBUPROFEN 05/25/2017 10 - AnaphylaxisDate Reviewed: 09/30/2017Reviewed by: Penny Luz Ma - Fully AssessedReason for Visit: New Patient [172]Primary Visit Diagnosis:Pain in joint, multiple sites [M25.50] Other Visit Diagnoses: Fibromyalgia [M79.7] Rash and nonspecific skin eruption [R21] Positive LINDSAY (antinuclear antibody) [R76.8] Chronic midline low back pain without sciatica [M54.5, G89.29]Order(s):CONSULT TO DERMATOLOGY [9006] Order #: [id number]: 1 ANTI ESTRELLITA ID [SQENAID] Order #: [id number] FUTURE C3 COMPLEMENT BLD [[id number]] Order #: [id number] FUTURE C4 COMPLEMENT BLD [[id number]] Order #: [id number] FUTURE PROTEIN CREATININE RATIO [SQPRATIO] Order #: [id number] FUTURE UA CHEMSTRIP ONLY [SQUA] Order #: [id number] FUTURE CONSULT TO PHYSICAL THERAPY [9033] Order # : [id number]: 1Prescriptions as of 09/30/2017 Sig: BACLOFEN 20 MG TABLET Take 20 mg by mouth once tila* GABAPENTIN 300 MG CAPSULE Start with one tab daily x 5 * GLIPIZIDE 5 MG TABLET Take 1 tablet by mouth once d* ATORVASTATIN 10 MG TABLET Take 1 tablet by mouth daily * LOSARTAN 25 MG TABLET Take 1 tablet by mouth once d* MUPIROCIN 2 % TOPICAL OINTMENT Apply 1 application to affect* BLOOD SUGAR DIAGNOSTIC STRIPS Test blood sugar(s) 1 times d* LANCETS Test blood sugar(s) 1 times d* BLOOD- GLUCOSE METER KIT Glucose Meter of Choice - Kit* CLOTRIMAZOLE-BETAMETHASONE 1 * Apply 1 application to affect*Medication notes this encounter CLOTRIMAZOLE-BETAMETHASONE 1 %-0.05 % TOPICAL CREAM >> Penny Luz Ma 09/30/2017 12:46 PM >> PENNY LUZ MA TueSep 30, 2017 12:46 PM Course of therapy completedProblem List As Of Date 09/30/2017 Noted Resolved LINDSAY positive [R76.8] INVALID FOR* More... Polyarthralgia [ M25.50] INVALID FOR* Controlled type 2 diabetes mellitus without com*INVALID FOR * Neck pain [M54.2] INVALID FOR* Lumbar pain [M54.5] INVALID FOR* Hyperlipidemia, mixed [E78.2] INVALID FOR* Fibromyalgia [ M79.7] INVALID FOR* Other instructions from your clinician: Talk to your primary care provider about increasing neurontin. In the meantime, you can take neurontin 1 tablet three time daily __ Treatment Recommendations for Fibromyalgia developed by Dr. Sanket Wisdom M.D. 1. Medications: We recommend first trying a tricyclic antidepressant such as cyclobenzaprine (Flexeril) or amitriptyline (Elavil) in patients who have not yet had an adequate trial of this class of medications. We prefer Flexeril. Although Flexeril is generally marketed as a muscle relaxant, the similarities in chemical structure to the tricyclic antidepressants make it a very useful medication to treat pain and it can also be helpful for treating sleep disturbance. Begin Flexeril at a dose of 5 mg 2-3 hours before bedtime. Taking the medication in this fashion can help decrease morning grogginess. Increase the dose by 5 mg every week as tolerated until a total dose of 20 mg is achieved. Increased fluid intake may decrease the incidence of dry mouth and constipation. Patients should also be warned about potential weight gain. Amitriptyline (Elavil) can be used similarly in doses starting at 10 mg before bedtime, increasing by 10 mg weekly as tolerated up to 50 mg. Nortriptyline is also a good choice for many people. If maximum tolerated doses of trycyclics are not providing adequate pain relief, we recommend addition (if Flexeril/Elavil is helping) or substitution of a dual reuptake inhibitor such as Cymbalta (duloxetine) or Savella (milnacipran). Such drugs may be the drug of first choice in fibromyalgia patients with prominent depression or fatigue, as they often work well for these co-morbid symptoms (in addition to treating pain). Begin Cymbalta at 30 mg once daily with food. The dose can eventually be increased up to a total of 120 mg per day as tolerated, taken either as a single night time dose or b.i.d. Begin Savella at 25 mg, slowly increasing the dose as tolerated to a maximum of 100mg daily (e.g. 50 mg b.i.d.). Both drugs may initially cause nausea, palpitations, and other ?noradrenergic? side effects, so patients should be instructed that this may happen. These side effects usually resolve over time. Another class of medication with proven efficacy in fibromyalgia are the ajcoh-3-uiype ligands, Neurontin ( gabapentin) and Lyrica (pregabalin). This class of drug might be the best first choice for a fibromyalgia patient with prominent sleep problems. Lyrica is specifically approved for fibromyalgia , at doses of both 300 and 450mg. For Neurontin, doses typically in the range of 1500 ? 3000 mg are necessary to treat pain. Both drugs are better tolerated if most or even all of the dose is taken at bedtime (e.g. 150 mg in the morning and 300 mg at night for Lyrica, or 600 mg in the morning and 1200 mg at night for Neurontin). Some of the other medications that can be helpful in some fibromyalgia patients are higher doses of older SSRI?s such as Prozac, Zoloft, or Paxil. Dosages higher than those typically used for treating depression (e.g. 40 ? 50 mg of Prozac) are often necessary as it appears that at these higher dosages the important noradrenergic activity of these drugs becomes more prominent. Gamma hydroxybutyrate (particularly in those with significant sleep problems) and dopamine agonists (in those with co-morbid restless leg syndrome) can also be helpful in subsets of fibromyalgia patients. 2. Non-pharmacologic management: Activity/ exercise. A stahl aspect of fibromyalgia management is for the patient to appreciate that when their symptom(s) decrease in response to pharmacologic therapy, they must correspondingly increase their function. For example, when medication(s) diminishes pain, fatigue or other symptoms by 20%, this should lead to a 20% increase in activity/function. Such an increase in function and activity may result in a continuing reduction in complaints of pain, fatigue, etc. and may also diminish associated depressive and anxiety symptoms. We highly recommend patients make use of the [employer] website, (www.[employer].bSafe), that provides a self-management program for people living with fibromyalgia. When tested in a trial, this was shown to be quite effective at improving symptoms. 3. Chronic Pain Rehabilitation Program: We urge patients to attend the Chronic Pain Rehabilitation Program here at [facility]. This program enables patients to be cared for by a multidisciplinary team of providers including experts in pain management, stress management training, physical and occupational therapy, vocational rehabilitation, nursing, nutrition, and psychotherapy. If you are interested, please call [phone] or [phone] to schedule an appointment for evaluation.Disposition: Return for 6 months [employer], 1 year me.Follow-up and Disposition History RecordedLetter Bryn Alves:How to activate your [facility] [place] Account 1. Visit the [place] Signup page at [email or web address] 2. Identify yourself using your one-time use activation code: Not generated 3. Follow the on-screen prompts to choose your own secure username andpasswordThe following information will be necessary to access your account for thefirst time:Information needed for sign-up:Your custom activation code used one-time only for the initial accountset-up.Your date of birthThe last 4 digits of your social security numberWhat to do next:Fill in the requested information on the Identify Yourself Form [email or web address] , click Next.Create your login and password, choose a [place] ID and password that will beeasy for you to use, but impossible for anyone else to guess.Pick a security question that will assist you in the event you forget yourpassword the next time you log-on.If you have difficulty activating your account, please call our [employer] at [phone] or toll free at .We hope you enjoy using [facility]!Kindest Regards,[facility] [place] TeamEncounter Number: [id number] Status:Closed by ASHLEY ARANGO MD on 09/30/17 PROGRESS Observed: 09/30/2017 Status: COMPLETED Source: [place] 12:27 PM [facility] [place] REPOSITORY HNO ID: [id number]: Ashley Cota) uLhService: (none) Author Type: PhysicianType: Progress NotesFiled: 09/30/2017 1:48 PMNote Text:On 2017, I had the pleasure of seeing Reilly Alves at [facility]. Reilly Alves wasreferred by Kayla Bro for an opinion and advice regardingjoint pain. My findings and final recommendations will be communicated tothe requesting health care provider by way of the shared medical recordfor internal providers or letter via the [employer] forexternal providers.Chief complaint: Joint pain, +ANAHPI:To review, Reilly Alves is a 57 year old female present with friend whotranslated- Since , with pain in the back, neck, arms, wrists, MCPs, PIPs, DIPs,hips, knees, and legs. Pain worse with activity. Worst in the morning.- In May, presented to primary care with joint pain. Labs with +LINDSAY.Started on course of prednisone- In Jun, reported to primary care that prednisone 40mg/day with taperover 18 days did not help with joint pain. Started on neurontin, with eachdose lasting 2 hours.- Today, reports taking neurontin on average twice daily (script says rajinder three times daily if tolerated). With 50% improvement in pain for the2 hours following neurontin dose.- Has rash over back. Has rash in sun over back.- Morning stiffness x30 minutes- Fingers turn red with cold exposure, fingernails sometimes purplePAST MEDICAL HISTORYDiagnosis Date- Chronic back pain- Chronic neck pain- Elevated glucose 07/2016- HTN (hypertension) 2013FibromyalgiaDMHLAsthmaSeizuresPAST SURGICAL HISTORYProcedure Laterality Date- SECTION HX 3 times- HYSTERECTOMY 2007ALLERGIESAllergen Reactions- Aspirin Anaphylaxis- Ibuprofen AnaphylaxisMEDICATIONS:Current Outpatient Prescriptions:baclofen (LIORESAL) 20 mg tablet Take 20 mg by mouth once daily.gabapentin (NEURONTIN) 300 mg capsule Start with one tab daily x 5 daysHS , if tolerated increase to BID x 5 days and then to TID if toleratedglipiZIDE ( GLUCOTROL) 5 mg tablet Take 1 tablet by mouth once daily.atorvastatin (LIPITOR) 10 mg tablet Take 1 tablet by mouth daily atbedtime. For cholesterol.losartan (COZAAR) 25 mg tablet Take 1 tablet by mouth once daily.mupirocin (BACTROBAN) 2 % ointment Apply 1 application to affected areathree times daily. Location: scalpblood sugar diagnostic (BLOOD GLUCOSE TEST) test strip Test blood sugar(s)1 times daily. Dx: Type 2 DM - Controlled E11.9 Insulin: NoLancets lancets Test blood sugar(s) 1 times daily. Dx: Type 2 DM -Controlled E11.9 Insulin: NoBlood-Glucose Meter monitoring kit Glucose Meter of Choice - Kit - Dx:Other DM Code hyperglycemiaclotrimazole- betamethasone (LOTRISONE) cream Apply 1 application toaffected area twice daily. UNTIL CLEAR FOR UP TO 2-3 WEEKSNo current facility-administered medications for this visit.FAMILY HISTORYProblem Relation Age of Onset- Cancer Mother uterine- Diabetes Father- Other [OTHER] Father of sepsis due to liver failure- Hypertension Sister- Diabetes Sister- Hypertension Brother- Diabetes BrotherSOCIAL HISTORY: Lives in [place]. 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.Social History Marital status: Single Spouse name : Years of education: Number of children:Social History Main Topics Smoking status: Former Smoker Packs/day: 0.00 Years: 0.00 Smokeless status: Never Used Alcohol use: No Drug use: No Sexual activity: NoREVIEW OF SYSTEMS : Bolded items below are presentCONSTITUTIONAL: Negative for fever, fatigue, unintentional weight lossEYES: Negative for pain, redness, loss of vision, drynessENM AND T: Negative for nose bleeds, hearing loss, mouth sores, dysphagia,dry mouthCV: Negative for chest pain, swelling in legs or feetRESPIRATORY: Negative for shortness of breath, pain with breathing,chronic cough, coughing up bloodGI: Negative for GERD, nausea, diarrhea, bloody or black stool, abdominalpainGENITOURINARY: Negative for bloody urine, pain with urinationMSK: Negative for joint pain, joint swelling, morning stiffness in joints,muscle weakness, back painSKIN: Negative for rash, sun sensitive rashes, color changes of hands orfeet in the cold, hair loss, nail changesNEURO: Negative for headaches, dizziness, paresthesia, memory loss,seizureHEME/LYMPH: Negative for swollen glands, anemiaALLERGIC/ IMMUNOLOGIC: Negative for allergies (other than medications),increased susceptibility to infectionOTHER CONDITIONS: DM, THYROID, HTNPHYSICAL EXAM:VITALS: Blood pressure 134/78, pulse 74, temperature 36.6 ?C (97.8 ?F),temperature source Oral, height 157.5 cm (5' 2), weight 83 kg (183 lb).CONSTITUTIONAL: Well-appearing, in NAD.SKIN: Hyperpigmented macules over lower back with one area of excoriation. No alopecia. No sclerodactyly, calcinosis, telangiectasias, digitialulcers, or skin thickening.EYES: No scleral icterus or conjunctivitis, PERRLA.ENT and Mouth: External ears normal. Nares normal. Mucous membranesnormal. Oropharynx normal. No oral ulcers. TNECK: No lymphadenopathy, limited range of motionRESPIRATORY: Normal breath sounds, clear to auscultation.CARDIOVASCULAR: Regular rate and rhythm, no murmurs or rubsGASTROENTEROLOGY: Normal bowel sounds. Abdomen is soft and non-tender.EXTREMITIES/LYMPH: No edema bilaterallyNEURO: Awake, alert and oriented, antalgic gait, Strength 5/5 in upperand lower extremity muscles bilaterally, Reflexes symmetrical.MUSCULOSKELETAL:JOINT APPEARANCE: No erythema or warmth of any upper or lower extremityjoint.RANGE OF MOTION: All upper and lower extremity joints with full range ofmotion. Able to fully close fists and curl fingers bilaterally.SWOLLEN JOINTS/SYNOVITIS: No synovitis of any joint.TENDER JOINTS: Diffuse tenderness to palpation of the shoulders, elbows,wrists, MCPs, PIPs, DIPs, knees, ankles and MTPs along with allintervening regions including the arms, hands, thighs and calvesWidespread Pain Index: 15 (0-19)Symptoms Severity Scale: 11 (0-12)WPI& gt;7 and SS Scale>5 OR WPI 3-6 and SS Scale >9 consistent withfibromyalgiaLABORATORY:Component Latest Ref Rng AND Units 05/25/2017WBC 3.70 - 11.00 k/uL 6.31RBC 3.90 - 5.20 m/uL 4.29Hemoglobin 11.5 - 15.5 g/dL 13.1Platelet Count 150 - 400 k/uL 256Albumin 3.9 - 4.9 g/dL 4.2Calcium 8.5 - 10.2 mg/dL 9.3Bilirubin, Total 0.2 - 1.3 mg/dL <0.2 (L)Alkaline Phosphatase 32 - 117 U/ L 74AST 13 - 35 U/L 26Glucose 74 - 99 mg/dL 136 (H)BUN 7 - 21 mg/dL 13Creatinine 0.58 - 0.96 mg/dL 0.79Sodium 136 - 144 mmol/L 140Potassium 3.7 - 5.1 mmol/L 3.5 (L) Chloride 97 - 105 mmol/L 102CO2 22 - 30 mmol/L 26Anion Gap 9 - 18 mmol/L 12ALT 7 - 38 U/ L 24eGFR- >60eGFR-All Other Races . >60Component Latest Ref Rng AND Units 05/25/2017 06/01/2017Hep A Ab, IgM Negative NegativeHep B Surface Ag Negative NegativeHCV RNA by PCR IU/mL HCV RNA not detected by PCR.Hep B Core Ab, IgM Negative NegativeANA Negative Positive (A)LINDSAY Titer Negative 1:1280 (A)LINDSAY Pattern NucleolarWSR 0 - 20 mm/hr 9CRP <0.9 mg/dL 0.2Rheumatoid Factor < 16 IU/mL <10TSH 0.400 - 5.500 uU/mL 1.120CCP Antibody, IgG <20 Units < 15Hep C Antibody IA Negative NegativeRibosomal SHELL ASSEMBLER Ab <1.0 AI <0.2PM-Scl Antibody Negative NegativeDNA Antibody <30 IU/mL <12RNA Polymerase III Ab 0 - 19 Units 8Anti-Centromere Ab Negative NegativeJo 1 Antibody <1.0 AI <0.2Anti- SSA <1.0 AI <0.2Anti-SSB <1.0 AI <0.2STUDIES:*Jun xray L-spine- IMPRESSION: ?Lumbar spine degenerative changes withmultilevel disc spacenarrowing. ?L1 vertebral body compression deformity/age indeterminateFracture.*Jun xray C-spine- IMPRESSION: ?Cervical spine degenerative changeswith multilevel disc space narrowing.IMPRESSION and PLAN:1. Positive LINDSAY: Explained that lupus is unlikely given lack of usuallyassociated clinical features. Furthermore, would have expected a responsein joint pain to high dose prednisone 40mg/day with taper. Abnormal LINDSAY ispresent in a nucleolar pattern, without features of systemic sclerosispresent. Explained that an abnormal LINDSAY is not definitively diagnostic ofany particular condition and must be interpreted according to the clinicalcontext. Explained that the LINDSAY can be abnormal in a subset of peoplewithout any associated autoimmune disease. However, advised that sometimeslab abnormalities can precede onset of clinical symptoms, so advisedcontinuing to be followed in rheumatology at least annually to monitor foremergence of new clinical features- Check labs. Mail results- Explained that the criteria for lupus is not met at this time- Advised at least annual monitoring in rheumatology2. Fibromyalgia: Meets criteria based on WPI/ SS scale score as above.- Explained diagnosis and provided literature on fibromyalgia for review- Advised aerobic exercise- Advised to increase neurontin dose to 300mg tid per PCP, and thendiscuss with PCP about increasing dose further- Please refer to the fibromyalgia treatment guidelines as detailed belowfor further management by PCP3. Rash: Over lower back, atypical for lupus- Given referral to dermatology4. Back pain:- Given referral to PT5. General health maintenance:- Advised to continue follow-up with PCP for routine health maintenanceand malignancy screeningFollow -up in 6 months with Albino, 1 year with me. Patient wasinstructed to call if any new or worsening symptoms.Thank you for allowing me to participate in the care of your patient.Ashley Arango MDTreatment Recommendations for Fibromyalgia developed by Dr. Sanket Sanchez.D.1. Medications: We recommend first trying a tricyclic antidepressant suchas cyclobenzaprine (Flexeril) or amitriptyline (Elavil) in patients whohave not yet had an adequate trial of this class of medications. Weprefer Flexeril. Although Flexeril is generally marketed as a musclerelaxant, the similarities in chemical structure to the tricyclicantidepressants make it a very useful medication to treat pain and it canalso be helpful for treating sleep disturbance. Begin Flexeril at a doseof 5 mg 2-3 hours before bedtime. Taking the medication in this fashioncan help decrease morning grogginess. Increase the dose by 5 mg everyweek as tolerated until a total dose of 20 mg is achieved. Increasedfluid intake may decrease the incidence of dry mouth and constipation.Patients should also be warned about potential weight gain. Amitriptyline(Elavil) can be used similarly in doses starting at 10 mg before bedtime,increasing by 10 mg weekly as tolerated up to 50 mg. Nortriptyline is alsoa good choice for many people.If maximum tolerated doses of trycyclics are not providing adequate painrelief, we recommend addition (if Flexeril/Elavil is helping) orsubstitution of a dual reuptake inhibitor such as Cymbalta (duloxetine) orSavella (milnacipran). Such drugs may be the drug of first choice infibromyalgia patients with prominent depression or fatigue, as they oftenwork well for these co- morbid symptoms (in addition to treating pain).Begin Cymbalta at 30 mg once daily with food. The dose can eventually beincreased up to a total of 120 mg per day as tolerated, taken either as asingle night time dose or b.i.d. Begin Savella at 25 mg, slowlyincreasing the dose as tolerated to a maximum of 100mg daily (e.g. 50 mgb.i.d.). Both drugs may initially cause nausea, palpitations, and other?noradrenergic? side effects, so patients should be instructed that thismay happen. These side effects usually resolve over time.Another class of medication with proven efficacy in fibromyalgia are mmkegrbd-0-ouygn ligands, Neurontin ( gabapentin) and Lyrica (pregabalin).This class of drug might be the best first choice for a fibromyalgiapatient with prominent sleep problems. Lyrica is specifically approvedfor fibromyalgia, at doses of both 300 and 450mg. For Neurontin, dosestypically in the range of 1500 ? 3000 mg are necessary to treat pain.Both drugs are better tolerated if most or even all of the dose is takenat bedtime (e.g. 150 mg in the morning and 300 mg at night for Lyrica, or600 mg in the morning and 1200 mg at night for Neurontin).Some of the other medications that can be helpful in some fibromyalgiapatients are higher doses of older SSRI?s such as Prozac, Zoloft, orPaxil. Dosages higher than those typically used for treating depression( e.g. 40 ? 50 mg of Prozac) are often necessary as it appears that atthese higher dosages the important noradrenergic activity of these drugsbecomes more prominent. Gamma hydroxybutyrate (particularly in those withsignificant sleep problems) and dopamine agonists (in those with co-morbidrestless leg syndrome) can also be helpful in subsets of fibromyalgiapatients.2. Non-pharmacologic management: Activity/ exercise. A stahl aspect offibromyalgia management is for the patient to appreciate that when theirsymptom(s) decrease in response to pharmacologic therapy, they mustcorrespondingly increase their function. For example, when medication(s)diminishes pain, fatigue or other symptoms by 20%, this should lead to a20% increase in activity/function. Such an increase in function andactivity may result in a continuing reduction in complaints of pain,fatigue, etc. and may also diminish associated depressive and anxietysymptoms.We highly recommend patients make use of the [employer] website,(www.[employer].bSafe), that provides a self- management program for peopleliving with fibromyalgia. When tested in a trial, this was shown to bequite effective at improving symptoms.3. Chronic Pain Rehabilitation Program : We urge patients to attend theChronic Pain Rehabilitation Program here at [facility]. This programenables patients to be cared for by a multidisciplinary team of providersincluding experts in pain management, stress management training, physicaland occupational therapy, vocational rehabilitation, nursing, nutrition ,and psychotherapy. If you are interested, please call [phone] to schedule an appointment for evaluation. PROGRESS Observed: 09/26/2017 Status: COMPLETED Source: [place] 2:45 PM [facility] REPOSITORY HNO ID: [id number]: Fernando ThomasSerjordane: (none) Author Type: PhysicianType: Progress NotesFiled: 09/26/2017 3:06 PMNote Text:NEMESIO Tyepartment of HchavtgobelzDvzr[address] [place] [address]Qlog: [phone] Mgcoq 2017CHIEF COMPLAINT: New Patient ( Left middle trigger finger REF: Pepe Bro)HPI: Ms. Reilly Alves is a 57 year old female who presents with pain inprimarily in the left hand but also numbness and tingling in both. shedid require the use of a medical imaging specialist in the office today and therewere no communication problems apparent. Middle finger has been catchingand locking from a stay year now. she is right-handed. No injury ortrauma mentioned.ASSESSMENT:G56.03 Bilateral carpal tunnel syndrome (primary encounter diagnosis)M65.332 Trigger middle finger of left handPLAN:we will first get an electrodiagnostic exam and therefore discuss afterfor discoid to do trigger release versus combined with carpal tunnel. inthe meantime, we'll fit her with an oval 8 splint for comfort.FOLLOW UP INSTRUCTIONS:after nerve testingMs. Reilly Alves was advised as to contrast therapies and/or to takeanalgesics/anti-inflammatories as needed and all contraindications werereviewed.OBJECTIVE:Ms. Reilly Alves is a pleasant 57 year old in no apparent distress.Gen:BP 132/80 Pulse 70 Ht 5' 2 (1.58m) Wt 187 lb 12.8 oz (85.2kg) BMI 34.34 kg/(m2). nl development, obese , no deformitiesENT: Normocephalic, normal hearing, moist mucosaCV: Pulses:DP/PT= 2 + and symmetric, capillary refill < 2 secs, noperipheral edema/varicositiesSkin: no rash, bruising or lesions. Good turgor.Psych: cooperative and appropriate, alert and oriented x 3, good mood andaffect.Musculoskeletal:Cervical spine has supple range of motion and no tenderness to palpation,Spurling's sign negative. Shoulders and elbows have full range of motion. negative Tinel's over the cubital tunnel, no subluxation of ulnar nerveat the elbow with flexion. negative Tinel's over Guyon's canal.Inspection reveals no thenar atrophy. intact sensation to light touch inthe radial 3 digits. Sensation intact in the ulnar 2 digits with outintrinsic atrophy/weakness. positive Tinel's at the wrist, positivecarpal tunnel compression testing on the right and left wrists,symmetrically. positive locking and catching of the left middle digit.No tenderness to palpation or masses noted in the forearm or hand.IMAGING:deferred todaySupporting Subjective Information Below:Past Medical History:PAST MEDICAL HISTORYDiagnosis Date- Chronic back pain- Chronic neck pain- Elevated glucose 07/2016- HTN (hypertension) 2012Pa Surgical History:PAST SURGICAL HISTORYProcedure Laterality Date- SECTION HX 3 times- HYSTERECTOMY 2007Family History:FAMILY HISTORYProblem Relation Age of Onset- Cancer Mother uterine- Diabetes Father- Other [OTHER] Father of sepsis due to liver failure- Hypertension Sister- Diabetes Sister- Hypertension Brother- Diabetes BrotherSocial History:Social History Marital status: Single Spouse name: Years of education: Number of children:Social History Main Topics Smoking status: Former Smoker Packs/day: 0.00 Years: 0.00 Smokeless status: Never Used Alcohol use: No Drug use: No Sexual activity: NoMedications:Current Outpatient Prescriptions:baclofen (LIORESAL) 20 mg tablet Take 20 mg by mouth once daily.gabapentin (NEURONTIN) 300 mg capsule Start with one tab daily x 5 daysHS , if tolerated increase to BID x 5 days and then to TID if toleratedglipiZIDE ( GLUCOTROL) 5 mg tablet Take 1 tablet by mouth once daily.atorvastatin (LIPITOR) 10 mg tablet Take 1 tablet by mouth daily atbedtime. For cholesterol.losartan (COZAAR) 25 mg tablet Take 1 tablet by mouth once daily.mupirocin (BACTROBAN) 2 % ointment Apply 1 application to affected areathree times daily. Location: scalpclotrimazole-betamethasone (LOTRISONE) cream Apply 1 application toaffected area twice daily. UNTIL CLEAR FOR UP TO 2-3 WEEKSblood sugar diagnostic (BLOOD GLUCOSE TEST) test strip Test blood sugar(s)1 times daily. Dx: Type 2 DM - Controlled E11.9 Insulin: NoLancets lancets Test blood sugar(s) 1 times daily. Dx: Type 2 DM -Controlled E11.9 Insulin: NoBlood-Glucose Meter monitoring kit Glucose Meter of Choice - Kit - Dx:Other DM Code hyperglycemiaNo current facility-administered medications for this visit.Allergies: Aspirin; IbuprofenROS:General (negative for fatigue, malaise, weight loss/gain)HEENT (negative for headache, earache, recent vision changes, sinus pain,sore throat) Respiratory (no recent shortness of breath, hemoptysis)CV (negative for chest tightness, palpitations)Musculoskeletal (see HPI)Psych (no depression, anxiety)REFERRING PHYSICIAN: Ms. Reilly Alves was referred to me for consultationby the following physician. This consultation note will be sent to thefollowing physician by either mail or electronic medical record.PAZ Pena-[id number] [facility] [id number] note was partially generated using LucidEra voice recognition system,and there may be some incorrect words, spellings, and punctuation thatwere not noted in checking the note before saving.Fernando Thomas MD PROGRESS Observed: 09/26/2017 Status: COMPLETED Source: [place] 2:30 PM [facility] REPOSITORY HNO ID: [id number]: Teena (Rn) JAGDISH Arayaervice : (none)Author Type: Registered NurseType: Progress NotesFiled: 09/26/2017 3:06 PMNote Text:Patient scheduled for EMG at Dr. King office, informed office thatpatient will need gasket maker. Faxed order and med list to office.Teena Araya RN PROGRESS Observed: 09/26/2017 Status: COMPLETED Source: [place] 2:06 PM [facility] REPOSITORY HNO ID: [id number]: Tamra Andersonice: (none) Author Type: (none)Type: Progress NotesFiled: 09/26/2017 3:06 PMNote Text:PT ASSESSMENT - CASTING ROOMElisa presents for Application of Oval 8 splint.Applied size 11 Oval 8 splint to left middle finger.Patient has been instructed in Care and proper application of brace.Tamra Hurley Ma PROGRESS Observed: 09/26/2017 Status: COMPLETED Source: [place] 1:17 PM [facility] REPOSITORY HNO ID: [id number]: Tamra Enamoradoervice: (none) Author Type: (none)Type: Progress NotesFiled: 09/26/2017 3:06 PMNote Text:AMB ROOMING INTAKE FLOWSHEET DATARisk ScreeningDo you have concerns about personal safety or safety in the home?: NoPainPain Score: 7/10Pain Location: Hand-LeftDescription: Other: See comment (deep AND locking)Duration Amount of Time: 1Duration Units: YearsFrequency: ContinuousIntervention: Other: See comment (none)Patient here today for evaluation of left middle trigger finger x 1 year.Patient is right hand dominant, 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 Referred by Pepe Bro. Information collectedusing [employer] Teacher # [id number]. CNOV Observed: 09/26/2017 Status: COMPLETED Source: [place] 1:10 PM [facility] REPOSITORY Office Visit (ORTHWS) ---------REILLY ALVES ([id number]) 1960 F [place] Time Provider Department09/26/17 1:10 PM FERNANDO THOMAS During your visit today, we recorded the following information about you: Pulse Blood pressure Weight Height 70/minute 132/80 85.2 kg 1.575 Leidy Hurley Ma 09/26/2017 3:06 PM SignedAMB ROOMING INTAKE FLOWSHEET DATARisk ScreeningDo you have concerns about personal safety or safety in the home?: NoPainPain Score: 7/10Pain Location: Hand-LeftDescription: Other: See comment (deep ANDamp; locking)Duration Amount of Time: 1Duration Units: YearsFrequency: ContinuousIntervention: Other: See comment (none)Patient here today for evaluation of left middle trigger finger x 1 year.Patient is right hand dominant, 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 Referred by Pepe Bro. Information collected [employer] Teacher # [id number].Tamra Hurley Ma 09/26/2017 3:06 PM SignedPT ASSESSMENT - CASTING ROOMElisa presents for Application of Oval 8 splint.Applied size 11 Oval 8 splint to left middle finger.Patient has been instructed in Care and proper application of brace.Tamra Araya, RN, RN 09/26/2017 3:06 PM SignedPatient scheduled for EMG at Dr. King office, informed office that patientwill need gasket maker. Faxed order and med list to office.Tre Badillo MD 09/26/2017 3:06 PM SignedNEMESIO Tylincoln [facility] centerment of [address] [place] [address]Vhmz: [phone] Obfzq 2017CHIEF COMPLAINT: New Patient (Left middle trigger finger REF: Pepe Bro )HPI: Ms. Reilly Alves is a 57 year old female who presents with pain inprimarily in the left hand but also numbness and tingling in both. she didrequire the use of a medical imaging specialist in the office today and there were nocommunication problems apparent. Middle finger has been catching and lockingfrom a stay year now. she is right-handed. No injury or trauma mentioned.ASSESSMENT:G56.03 Bilateral carpal tunnel syndrome (primary encounter diagnosis)M65.332 Trigger middle finger of left handPLAN:we will first get an electrodiagnostic exam and therefore discuss after fordiscoid to do trigger release versus combined with carpal tunnel. in themeantime, we'll fit her with an oval 8 splint for comfort.FOLLOW UP INSTRUCTIONS:after nerve testingMs. Reilly Alves was advised as to contrast therapies and/or to takeanalgesics/anti-inflammatories as needed and all contraindications werereviewed.OBJECTIVE:Ms. Reilly Alves is a pleasant 57 year old in no apparent distress.Gen:BP 132/80 Pulse 70 Ht 5' 2ANDquot; (1.58m) Wt 187 lb 12.8 oz (85.2kg) BMI 34.34 kg/(m2). nl development, obese, no deformitiesENT: Normocephalic, normal hearing, moist mucosaCV: Pulses:DP/PT= 2 + and symmetric, capillary refill ANDlt; 2 secs, no peripheraledema/varicositiesSkin: no rash, bruising or lesions. Good turgor.Psych: cooperative and appropriate, alert and oriented x 3, good mood andaffect.Musculoskeletal:Cervical spine has supple range of motion and no tenderness to palpation,Spurling's sign negative. Shoulders and elbows have full range of motion.negative Tinel's over the cubital tunnel, no subluxation of ulnar nerve at theelbow with flexion. negative Tinel's over Guyon's canal. Inspection revealsno thenar atrophy. intact sensation to light touch in the radial 3 digits.Sensation intact in the ulnar 2 digits with out intrinsic atrophy/weakness.positive Tinel's at the wrist, positive carpal tunnel compression testing onthe right and left wrists, symmetrically. positive locking and catching ofthe left middle digit. No tenderness to palpation or masses noted in theforearm or hand.IMAGING:deferred todaySupporting Subjective Information Below:Past Medical History:PAST MEDICAL HISTORYDiagnosis Date- Chronic back pain- Chronic neck pain- Elevated glucose 07/2016- HTN (hypertension) 2012Pa Surgical History:PAST SURGICAL HISTORYProcedure Laterality Date- SECTION HX 3 times- HYSTERECTOMY 2007Family History: FAMILY HISTORYProblem Relation Age of Onset- Cancer Mother uterine- Diabetes Father- Other [OTHER] Father of sepsis due to liver failure- Hypertension Sister- Diabetes Sister- Hypertension Brother- Diabetes BrotherSocial History:Social History Marital status: Single Spouse name: Years of education: Number of children:Social History Main Topics Smoking status: Former Smoker Packs/day: 0.00 Years: 0.00 Smokeless status: Never Used Alcohol use: No Drug use: No Sexual activity: NoMedications:Current Outpatient Prescriptions:baclofen ( LIORESAL) 20 mg tablet Take 20 mg by mouth once daily.gabapentin (NEURONTIN) 300 mg capsule Start with one tab daily x 5 days HS, iftolerated increase to BID x 5 days and then to TID if toleratedglipiZIDE (GLUCOTROL) 5 mg tablet Take 1 tablet by mouth once daily.atorvastatin (LIPITOR) 10 mg tablet Take 1 tablet by mouth daily at bedtime.For cholesterol.losartan (COZAAR) 25 mg tablet Take 1 tablet by mouth once daily.mupirocin (BACTROBAN) 2 % ointment Apply 1 application to affected area threetimes daily. Location: scalpclotrimazole-betamethasone (LOTRISONE) cream Apply 1 application to affectedarea twice daily. UNTIL CLEAR FOR UP TO 2-3 WEEKSblood sugar diagnostic (BLOOD GLUCOSE TEST) test strip Test blood sugar(s) 1times daily. Dx: Type 2 DM - Controlled E11.9 Insulin: NoLancets lancets Test blood sugar(s) 1 times daily. Dx: Type 2 DM - UwmuuhlxocU80.9 Insulin: NoBlood- Glucose Meter monitoring kit Glucose Meter of Choice - Kit - Dx: OtherDM Code hyperglycemiaNo current facility-administered medications for this visit.Allergies: Aspirin; IbuprofenROS:General (negative for fatigue, malaise, weight loss/gain)HEENT (negative for headache, earache, recent vision changes, sinus pain, sorethroat) Respiratory (no recent shortness of breath, hemoptysis)CV (negative for chest tightness, palpitations)Musculoskeletal (see HPI)Psych (no depression, anxiety)REFERRING PHYSICIAN: Ms. Reilly Alves was referred to me for consultation bythe following physician. This consultation note will be sent to the followingphysician by either mail or electronic medical record.JOSE ANGEL PenaC1740 [facility] [id number] note was partially generated using LucidEra voice recognition system, andthere may be some incorrect words, spellings, and punctuation that were notnoted in checking the note before saving.Theresa Ty Provider: Kayla BRO (JOSE ANGEL Ho) [[id number]]Allergies As of Date: 09/26/2017 Noted Allergy ReactionASPIRIN 05/25/2017 10 - AnaphylaxisIBUPROFEN 05/25/2017 10 - AnaphylaxisDate Reviewed: 09/26/2017Reviewed by: Tamra Hurley Ma - Fully AssessedReason for Visit: New Patient [172] Cmt: Left middle trigger finger REF: Pepe Pedroza Visit Diagnosis:Bilateral carpal tunnel syndrome [G56.03] Other Visit Diagnosis:Trigger middle finger of left hand [M65.332] Order(s):EMG(NEURO/NI) [[id number]] Order #: [id number]: 1 FUTUREPrescriptions as of 09/26/2017 Sig: BACLOFEN 20 MG TABLET Take 20 mg by mouth once tila* GABAPENTIN 300 MG CAPSULE Start with one tab daily x 5 * GLIPIZIDE 5 MG TABLET Take 1 tablet by mouth once d* ATORVASTATIN 10 MG TABLET Take 1 tablet by mouth daily * LOSARTAN 25 MG TABLET Take 1 tablet by mouth once d* MUPIROCIN 2 % TOPICAL OINTMENT Apply 1 application to affect* CLOTRIMAZOLE-BETAMETHASONE 1 * Apply 1 application to affect* BLOOD SUGAR DIAGNOSTIC STRIPS Test blood sugar(s) 1 times d* LANCETS Test blood sugar(s ) 1 times d* BLOOD-GLUCOSE METER KIT Glucose Meter of Choice - Kit*Problem List As Of Date 09/26/2017 Noted Resolved LINDSAY positive [R76.8] INVALID FOR* More... 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 Fibromyalgia:Doing good. Saw Dr. Chavez who prescribed Baclofen:helping kind of, not a lot. Makes her drowsy. Not working currently.Also left middle finger pain with locking.2. Taking medication as directed consistently? YesMedical Issues / Complications: hypertension and hyperlipidemiaChecking blood sugars at home? Yes. 118Watching diet? YesPhysical Activity: Very active, caring for rpojzo-np-vju.Hypoglycemic spells? NoAny visual disturbance? Yes, blurry, comes and goes.Chest pain? NoNew numbness, tingling or loss of sensation? Yes, chronicAny recent foot problems, sores or rashes? Yes: fungus, cramping in feetAny recent or sudden weight loss? No. Weight upAny recent illness? No. Having some lower abdominal pain and slightvaginal. S/p hysterectomy 2006.Renal protective agent? Yes CozaarASA daily? YesStatin therapy? YesTriglyceride therapy? NoLast eye exam: Yes. 4-5- months ago.Last foot exam: Feet:Shoes and socks removed, No deformities, ulcers, calluses, normal distal pulses and sensitive to 10 gm monofilament.HBA1C:Hemoglobin A1C ( %)Date Value05/25/2017 6.8 )CMP:Glucose 136 05/25/2017BUN 13 05/25/2017Creatinine 0.79 05/25/2017Sodium 140 05/25/2017Potassium 3.5 05/25/2017Chloride 102 05/25/2017CO2 26 05/25/2017Protein, Total 7.5 05/25/2017Albumin 4.2 05/25/2017Calcium 9.3 05/25/2017Alkaline Phosphatase 74 05/25/2017Bilirubin, Total <0.2 05/25/2017AST 26 05/25/2017ALT 24 05/25/2017Last 2 Encounter Wt Readings: Date: Wt: 09/12/2017 83.5 kg (184 lb) 07/27/2017 79.4 kg (175 lb)3. Sore on head, boils. Hurt. Picks at them regularly. No one in househas similar.4. Lower abdominal pain with vaginal bleeding. Abdominal pain over lastweek 3 times, this week twice. Sharp at times, tender. At longest anhour. No nausea or vomiting. Appetite normal varies. Positive forheartburn with acid brash once a day to once a week. No medication.Urination: normal. No black or tarry stools. Bright red blood on wipingafter defecation at times, more brownish orange. Denies constipation ordiarrhea. Sees blood on urinating. No blood in underwear. No sexuallyactive. x 3, hysterectomy, BSO bleeding and fibroid. Notsexually active in last 7 years.5. Chest pain: describes as pressure, mid-sternal when angry oragititated. Associated with sweating, nausea a little, weak, troublebreathing usually follow ultercation with mother. Mother -in -law withdementia. Has to run after her as she tries to escape. Very stressful,increases BP. Also pain in upper bilateral chest/ shoulder. Has been SOBafter running after ftqkox-mu-mvi. Also SOB with rest. Also lightheaded,dizziness, headache.6. Fungus between toes bilaterally. Started tinactin yesterday.7. HTN:Current meds:Patient is compliant with meds YesMonitors bp at home: Yes. If yes, readings:Denies side effects: Yes.See aboveLast 3 Encounter BP Readings: Date: BP: 09/12/2017 150/90 07/18/2017 150/88 07/06/2017 130/82Last 2 Encounter Wt Readings: Date: Wt: 09/12/2017 83.5 kg ( 184 lb) 07/27/2017 79.4 kg (175 lb)8. Hyperlipidemia:Taking medication consistently YesObserving low cholesterol high fiber diet YesMuscle aches YesStomach complaints/ diarrhea NoLast 2 Lipids:Cholesterol, Total (mg/dL)Date Value06/01/2017 229 HDL Cholesterol (mg/dL)Date Value06/01/2017 64 LDL Cholesterol (mg/dL)Date Value06/01/2017 149 Triglyceride (mg/dL)Date Value2016 80 HISTORIESFAMILY HISTORYProblem Relation Age of Onset- Cancer Mother uterine- Diabetes Father- Other [OTHER] Father of sepsis due to liver failure- Hypertension Sister- Diabetes Sister- Hypertension Brother- Diabetes BrotherPAST MEDICAL HISTORYDiagnosis Date- Chronic back pain- Chronic neck pain- Elevated glucose 07/2016- HTN (hypertension) 2013PAST SURGICAL HISTORYProcedure Laterality Date- SECTION HX 3 times- HYSTERECTOMY 2007Social History Marital status: Single Spouse name: Years of education: Number of children:Social History Main Topics Smoking status: Former Smoker Packs/ day: 0.00 Years: 0.00 Smokeless status: Never Used Alcohol use: No Sexual activity: NoACTIVE PROBLEM LISTAna PositivePolyarthralgiaControlled Type 2 Diabetes Mellitus Without Complication (Hcc)Neck PainLumbar PainHyperlipidemia, MixedFibromyalgiaCurrent Outpatient Prescriptions:baclofen (LIORESAL) 20 mg tablet Take 20 mg by mouth once daily. Disp:Rfl:atorvastatin (LIPITOR) 10 mg tablet Take 1 tablet by mouth daily atbedtime. For cholesterol. Disp: 30 tablet Rfl: 5clotrimazole-betamethasone (LOTRISONE) cream Apply 1 application toaffected area twice daily. UNTIL CLEAR FOR UP TO 2-3 WEEKS Disp: 15 g Rfl:1gabapentin ( NEURONTIN) 300 mg capsule Start with one tab daily x 5 daysHS, if tolerated increase to BID x 5 days and then to TID if toleratedDisp: 90 capsule Rfl: 2glipiZIDE (GLUCOTROL) 5 mg tablet Take 5 mg by mouth once daily. Disp:Rfl:losartan (COZAAR) 25 mg tablet Take 25 mg by mouth once daily. Disp: Rfl:blood sugar diagnostic (BLOOD GLUCOSE TEST) test strip Test blood sugar(s)1 times daily. Dx: Type 2 DM - Controlled E11.9 Insulin: No Disp: 50Strip Rfl: 5Lancets lancets Test blood sugar(s) 1 times daily. Dx: Type 2 DM -Controlled E11.9 Insulin: No Disp: 100 Each Rfl: 3Blood-Glucose Meter monitoring kit Glucose Meter of Choice - Kit - Dx:Other DM Code hyperglycemia Disp: 1 Each Rfl: 0No current facility-administered medications for this visit.DILATED RETINAL EXAM due on 1959URINE ALBUMIN CREATININE RATIO due on 1975DIABETIC FOOT EXAM due on 1975ONE PNEUMOVAX PRIOR TO AGE 64 due on 1975PAP EVERY 5 YEARS due on 1989HPV EVERY 5 YEARS due on 1989COLORECTAL CANCER SCREENING,SEE MODIFIER due on 2009EXAM:BP 150/90 Pulse 80 Temp 37.2 ?C (98.9 ?F) (Tympanic) Resp 16 Wt83.5 kg (184 lb) BMI 32.59 kg/n9Swwsciqt obese woman in no acute distress. Alert and oriented all spheres.Normal affect and cognition. Speech normal. No deficits to learning orcomprehension.Skin warm, dry, pink to lips and nailbeds. Normal turgor.Respirations regular and unlabored.Chest wall tender bilaterally coracobrachialis trigger points andcostovertebral bands mid chest. C/o everywhere touched with moderatepressure.Chest CTA. HRRR without murmur or gallop.Abd: rounded, soft, bowel sounds active throughout. No pulsatile masses.Tender over entire abdomen, moreso in lower quads, no rebound, guarding,or peritoneal signs. Negative heel strike. No masses. No organomegaly.Greer's punch: negative. No flank pain. No inguinal or axillarylymphadenopathy.Chaperoned pelvic and rectal exam: very distressing to patient, tearfulduring exam External: Negative Bartholin's, negative [place]'s, normal labia Speculum exam: Absent cervix, no bleeding or discharge noted. Healthyvaginal mucosa. Bimanual exam: No masses, patient is tender over the trigone. Rectal exam: Normal tone, no masses. Stool light brown, guaiac negativewith quality controls checked.Extrem: no clubbing, cyanosis, edema. Extremities are warm and pink withprompt capillary refill. Patient has clicking and restriction of her leftmiddle finger at the proximal interphalangeal joint. Mild deformity notedin the joint. Patient continues to have tenderness in almost everymuscular area. No overt joint swelling otherwise. Feet:Shoes and socksremoved, Are you having foot pain yes , No deformities, ulcers, calluses,normal distal pulses, sensitive to 10 gm monofilament and vibratory. Haswhite powder between toes but there are some fissures and peeling skinareas.EKG: NSR, no ischemic changes.Urine dip:Component Latest Ref Rng AND Units 09/12/2017Glucose, Urine Neg mg/dL negBilirubin, Urine Neg negKetones, Urine Neg negSpecific [place], Ur 1.005 - 1.030 1.015Hemoglobin/Blood,Ur Neg negpH, Urine 4.5 - 8.0 7.0Protein, Urine Neg mg/dL negUrobilinogen, Urine Normal (<1.1) EU normalNitrites Neg negLeukocytes Neg negColor/Appearance comment: clear/ yellowQuality Check yes/no YesASSESSMENT/PLAN:1. Trigger middle finger of left hand - ICD9: 727.03, ICD10: M65.332(primary diagnosis)- CONSULT TO ORTHO/PEDIATRICS- XR DIGIT GENERAL 3V FRONTAL/LAT/OBL LT2. Lower abdominal pain - ICD9: 789.09, ICD10: R10.30Etiology unclear. Patient has very sensitive pain response, possiblycultural overlay/ fibromyalgia.- UA DIP B/O- COMP METABOLIC PANEL- CBC + DIFF3. Chest pain, unspecified type - ICD9: 786.50, ICD10: R07.9Chest pain of unclear etiology, patient with significant risk factor(s) offamily history of early coronary heart disease, Diabetes Mellitus andHypertension- STRESS ECHO TREADMILL- ECG COMPLETE W INTERPRETATION- Red flags reviewed: 911 and to ED if sustained4. Controlled type 2 diabetes mellitus without complication, unspecifiedlong term insulin use status (HCC) - ICD9: 250.00, ICD10: E11.9Controlled.- Continue current medications- HGB A1C- COMP METABOLIC PANEL5. Polyarthralgia - ICD9: 719.49, ICD10: M25.50Needs to complete outstanding labwork: instructed to do so6. Fibromyalgia - ICD9: 729.1, ICD10: M79.7Improved on gabapentin: refill- GABAPENTIN 300 MG CAPSULE7. Hyperlipidemia, mixed - ICD9: 272.2, ICD10: E78.2- good control- Continue current medication: consider dose increase when improving.- ATORVASTATIN 10 MG TABLET- LIPID PANEL BASIC- COMP METABOLIC PANEL- CK CREATINE KINASE8. Neck pain - ICD9: 723.1, ICD10: M54.2- GABAPENTIN 300 MG CAPSULE9. Lumbar pain - ICD9: 724.2, ICD10: M54.5Chronic low back pain- GABAPENTIN 300 MG [id number]. Boils - ICD9: 680.9, ICD10: L02.92 - MUPIROCIN 2 % TOPICAL [id number]. Tinea pedis of both feet - ICD9: 110.4, ICD10 : B35.3Continue OTC Tinactin: if not improving 2 weeks contact us. Reviewed goodhygiene, airing out feet, washing footwear. Possible dweniybkicqnsv38+ visit in part due to complexities of communication with translationand multiple problems which needed immediate address.KEREN Pena Observed: 09/12/2017 Status: COMPLETED Source: [place] 1:40 PM [facility] REPOSITORY Office Visit (FAMPWS) ---------REILLY ALVES ([id number]) 1960 F [place] Time Provider Department09/12/17 1:40 PM Kayla BRO) FAMPWS During your visit today, we recorded the following information about you: Temperature Pulse Respiration Blood pressure 98.9 degrees 80/minute 16/minute 150/90 Weight 83.5 kgM Kelvin Bro PA-C 09/12/2017 7:31 PM Avvnus12 year old female with language interpretor c/o here for f/u.1. Fibromyalgia:Doing ANDquot;goodANDquot;. Saw Dr. Chavez who prescribed Baclofen:helping ANDquot;kind of, not a lotANDquot;. Makes her drowsy. Not workingcurrently. Also left middle finger pain with locking.2. Taking medication as directed consistently? YesMedical Issues / Complications: hypertension and hyperlipidemiaChecking blood sugars at home? Yes. 118Watching diet? YesPhysical Activity: Very active, caring for zgjkrc-gc-tmh.Hypoglycemic spells? NoAny visual disturbance? Yes, blurry, comes and goes.Chest pain? NoNew numbness, tingling or loss of sensation? Yes, chronicAny recent foot problems, sores or rashes? Yes: fungus, cramping in feetAny recent or sudden weight loss? No. Weight upAny recent illness? No. Having some lower abdominal pain and slight vaginal.S/p hysterectomy 2006.Renal protective agent? Yes CozaarASA daily? YesStatin therapy? YesTriglyceride therapy? NoLast eye exam: Yes. 4-5- months ago.Last foot exam: Feet:Shoes and socks removed, No deformities, ulcers, calluses,normal distal pulses and sensitive to 10 gm monofilament.HBA1C:Hemoglobin A1C (%)Date Value05/25/2017 6.8 )CMP: Glucose 136 05/25/2017BUN 13 2016Creatinine 0.79 05/25/2017Sodium 140 2016Potassium 3.5 05/25/2017Chloride 102 CO2 26 05/25/2017Protein, Total 7.5 05/25/2017Albumin 4.2 05/25/2017Calcium 9.3 05/25/2017Alkaline Phosphatase 74 05/25/2017Bilirubin, Total ANDlt;0.2 05/25/2017AST 26 05/25/2017ALT 24 05/25/2017Last 2 Encounter Wt Readings: Date: Wt: 09/12/2017 83.5 kg (184 lb) 07/27/2017 79.4 kg (175 lb)3. Sore on head, ANDquot;boilsANDquot;. Hurt. Picks at them regularly. No one inhouse has similar.4. Lower abdominal pain with vaginal bleeding. Abdominal pain over last week 3times, this week twice. Sharp at times, tender. At longest an hour. No nauseaor vomiting. Appetite normal varies. Positive for heartburn with acid brashonce a day to once a week. No medication. Urination: normal. No black or tarrystools. Bright red blood on wiping after defecation at times, more brownishorange. Denies constipation or diarrhea. Sees blood on urinating. No blood inunderwear. No sexually active. x 3, hysterectomy, BSO bleeding andfibroid. Not sexually active in last 7 years.5. Chest pain: describes as pressure, mid-sternal when angry or agititated.Associated with sweating, nausea a little, weak, trouble breathing usuallyfollow ultercation with mother. Mother -in -law with dementia. Has to run afterher as she tries to escape. Very stressful , increases BP. Also pain in upperbilateral chest/ shoulder. Has been SOB after running after urerdl-mw-hhr.Also SOB with rest. Also lightheaded, dizziness, headache.6. Fungus between toes bilaterally. Started tinactin yesterday.7. HTN:Current meds:Patient is compliant with meds YesMonitors bp at home: Yes. If yes, readings:Denies side effects: Yes.See aboveLast 3 Encounter BP Readings: Date : BP: 09/12/2017 150/90 07/18/2017 150/88 07/06/2017 130/82Last 2 Encounter Wt Readings: Date: Wt: 09/12/2017 83.5 kg (184 lb) 07/27/2017 79.4 kg (175 lb)8. Hyperlipidemia:Taking medication consistently YesObserving low cholesterol high fiber diet YesMuscle aches YesStomach complaints/ diarrhea NoLast 2 Lipids:Cholesterol, Total (mg/dL)Date Value2016 229 HDL Cholesterol (mg/dL)Date Value06/01/2017 64 LDL Cholesterol (mg/dL) Date Value06/01/2017 149 Triglyceride (mg/dL)Date Value06/01/2017 80 HISTORIESFAMILY HISTORYProblem Relation Age of Onset- Cancer Mother uterine- Diabetes Father- Other [OTHER] Father of sepsis due to liver failure- Hypertension Sister- Diabetes Sister- Hypertension Brother- Diabetes BrotherPAST MEDICAL HISTORYDiagnosis Date- Chronic back pain- Chronic neck pain- Elevated glucose 07/2016- HTN (hypertension) 2012PA SURGICAL HISTORYProcedure Laterality Date- SECTION HX 3 times- HYSTERECTOMY 2007Social History Marital status: Single Spouse name: Years of education: Number of children:Social History Main Topics Smoking status: Former Smoker Packs/day: 0.00 Years: 0.00 Smokeless status: Never Used Alcohol use: No Sexual activity: NoACTIVE PROBLEM LISTAna PositivePolyarthralgiaControlled Type 2 Diabetes Mellitus Without Complication (Hcc)Neck PainLumbar PainHyperlipidemia, MixedFibromyalgiaCurrent Outpatient Prescriptions:baclofen (LIORESAL) 20 mg tablet Take 20 mg by mouth once daily. Disp: Rfl:atorvastatin (LIPITOR) 10 mg tablet Take 1 tablet by mouth daily at bedtime.For cholesterol. Disp: 30 tablet Rfl: 5clotrimazole-betamethasone (LOTRISONE) cream Apply 1 application to affectedarea twice daily. UNTIL CLEAR FOR UP TO 2-3 WEEKS Disp: 15 g Rfl: 1gabapentin (NEURONTIN) 300 mg capsule Start with one tab daily x 5 days HS, iftolerated increase to BID x 5 days and then to TID if tolerated Disp: 90capsule Rfl: 2glipiZIDE (GLUCOTROL) 5 mg tablet Take 5 mg by mouth once daily. Disp: Rfl:losartan (COZAAR) 25 mg tablet Take 25 mg by mouth once daily. Disp: Rfl:blood sugar diagnostic ( BLOOD GLUCOSE TEST) test strip Test blood sugar(s) 1times daily. Dx: Type 2 DM - Controlled E11.9 Insulin: No Disp: 50 Strip Rfl:5Lancets lancets Test blood sugar(s) 1 times daily. Dx: Type 2 DM - WyzaubvulnR07.9 Insulin: No Disp: 100 Each Rfl: 3Blood-Glucose Meter monitoring kit Glucose Meter of Choice - Kit - Dx: OtherDM Code hyperglycemia Disp: 1 Each Rfl: 0No current facility-administered medications for this visit.DILATED RETINAL EXAM due on 1959URINE ALBUMIN CREATININE RATIO due on 1975DIABETIC FOOT EXAM due on 1975ONE PNEUMOVAX PRIOR TO AGE 64 due on 1975PAP EVERY 5 YEARS due on 1989HPV EVERY 5 YEARS due on 1989COLORECTAL CANCER SCREENING,SEE MODIFIER due on 2009EXAM:BP 150/90 Pulse 80 Temp 37.2 ?C (98.9 ?F) (Tympanic) Resp 16 Wt 83.5 kg(184 lb) BMI 32.59 kg/o8Evqgpyba obese woman in no acute distress. Alert and oriented all spheres.Normal affect and cognition. Speech normal. No deficits to learning orcomprehension.Skin warm, dry, pink to lips and nailbeds. Normal turgor.Respirations regular and unlabored.Chest wall tender bilaterally coracobrachialis trigger points andcostovertebral bands mid chest. C/o everywhere touched with moderate pressure.Chest CTA. HRRR without murmur or gallop.Abd: rounded, soft, bowel sounds active throughout. No pulsatile masses. Tenderover entire abdomen, moreso in lower quads, no rebound, guarding, orperitoneal signs. Negative heel strike. No masses. No organomegaly. Greer'spunch: negative. No flank pain. No inguinal or axillary lymphadenopathy.Chaperoned pelvic and rectal exam: very distressing to patient, tearful duringexam External: Negative Bartholin's , negative [place]'s, normal labia Speculum exam: Absent cervix, no bleeding or discharge noted. Healthy vaginalmucosa. Bimanual exam: No masses, patient is tender over the trigone. Rectal exam: Normal tone, no masses. Stool light brown, guaiac negative withquality controls checked.Extrem: no clubbing, cyanosis, edema. Extremities are warm and pink with promptcapillary refill. Patient has clicking and restriction of her left middlefinger at the proximal interphalangeal joint. Mild deformity noted in thejoint. Patient continues to have tenderness in almost every muscular area. Noovert joint swelling otherwise. Feet:Shoes and socks removed, Are you havingfoot pain ANDquot;yesANDquot;, No deformities, ulcers, calluses, normal distalpulses, sensitive to 10 gm monofilament and vibratory. Has white powder betweentoes but there are some fissures and peeling skin areas.EKG: NSR, no ischemic changes.Urine dip:Component Latest Ref Rng ANDamp; Units 09/12/2017Glucose, Urine Neg mg/dL negBilirubin, Urine Neg negKetones, Urine Neg negSpecific [place], Ur 1.005 - 1.030 1.015Hemoglobin/ Blood,Ur Neg negpH, Urine 4.5 - 8.0 7.0Protein, Urine Neg mg/dL negUrobilinogen, Urine Normal (ANDlt;1.1 ) EU normalNitrites Neg negLeukocytes Neg negColor/Appearance comment: clear/yellowQuality Check yes/ no YesASSESSMENT/PLAN:1. Trigger middle finger of left hand - ICD9: 727.03, ICD10: M65.332 ( primarydiagnosis)- CONSULT TO ORTHO/PEDIATRICS- XR DIGIT GENERAL 3V FRONTAL/LAT/OBL LT2. Lower abdominal pain - ICD9: 789.09, ICD10: R10.30Etiology unclear. Patient has very sensitive pain response, possibly culturaloverlay/ fibromyalgia.- UA DIP B/O- COMP METABOLIC PANEL- CBC + DIFF3. Chest pain, unspecified type - ICD9: 786.50, ICD10: R07.9Chest pain of unclear etiology, patient with significant risk factor(s) offamily history of early coronary heart disease, Diabetes Mellitus andHypertension- STRESS ECHO TREADMILL- ECG COMPLETE W INTERPRETATION- Red flags reviewed: 911 and to ED if sustained4. Controlled type 2 diabetes mellitus without complication, unspecified nursing home insulin use status (HCC) - ICD9: 250.00, ICD10: E11.9Controlled.- Continue current medications- HGB A1C- COMP METABOLIC PANEL5. Polyarthralgia - ICD9: 719.49, ICD10: M25.50Needs to complete outstanding labwork: instructed to do so6. Fibromyalgia - ICD9: 729.1, ICD10: M79.7Improved on gabapentin: refill- GABAPENTIN 300 MG CAPSULE7. Hyperlipidemia, mixed - ICD9: 272.2, ICD10: E78.2- good control- Continue current medication: consider dose increase when improving.- ATORVASTATIN 10 MG TABLET - LIPID PANEL BASIC- COMP METABOLIC PANEL- CK CREATINE KINASE8. Neck pain - ICD9: 723.1, ICD10: M54.2- GABAPENTIN 300 MG CAPSULE9. Lumbar pain - ICD9: 724.2, ICD10: M54.5Chronic low back pain- GABAPENTIN 300 MG SLUKAQD87. Boils - ICD9: 680.9, ICD10: L02.92- MUPIROCIN 2 % TOPICAL VDIWKGAR55. Tinea pedis of both feet - ICD9: 110.4, ICD10: B35.3Continue OTC Tinactin: if not improving 2 weeks contact us. Reviewed goodhygiene, airing out feet, washing footwear. Possible zonvclfeiidcja50+ visit in part due to complexities of communication with translation andmultiple problems which needed immediate address.Marlin Pena LPN 09/12/2017 4:30 PM SignedUsed [employer] and spoke with ID# [id number] ANDamp; ID#[id number] Provider: SELF [200]Allergies As of Date: 09/12/2017 Noted Allergy ReactionASPIRIN 05/25/2017 10 - AnaphylaxisIBUPROFEN 05/25/2017 10 - AnaphylaxisDate Reviewed: 09/12/2017Reviewed by : Mariluz Neville LPN - Fully AssessedReason for Visit: 8 week follow up [Other] Headache [52] Cmt: with change in vision and eyes red feels like under a lot of stress d/t mother- in-law dementia and running away hot flashes [Other] Cmt: when running after her Sleep Problem [ 100] Cmt: trouble sleeping d/t concerns over tjentd-px-zaw leaving the house Chest Pain [21]Reason For Visit History RecordedPrimary Visit Diagnosis:Trigger middle finger of left hand [M65.332] Other Visit Diagnoses:Lower abdominal pain [R10.30] Chest pain, unspecified type [R07.9] Controlled type 2 diabetes mellitus without complication, unspecified [facility] insulin use status (HCC) [E11.9] Polyarthralgia [M25.50] Fibromyalgia [M79.7] Hyperlipidemia, mixed [E78.2] Neck pain [M54.2] Lumbar pain [M54.5] Boils [L02.92] Tinea pedis of both feet [B35.3]Order(s):UA DIP B/O [8020759] Order #: [id number] STRESS ECHO TREADMILL [[id number]] Order #: [id number]: 1 FUTURE ECG COMPLETE W INTERPRETATION [ECG01] Order #: [id number] FUTURE gabapentin (NEURONTIN) 300 mg capsuleStart with one tab daily x 5 days HS, if tolerated increase to BID x 5 days and then to TID if toleratedDisp: 90 capsuleRfl: 5 glipiZIDE (GLUCOTROL) 5 mg tabletTake 1 tablet by mouth once daily.Disp: 90 tabletRfl: 1 atorvastatin (LIPITOR) 10 mg tabletTake 1 tablet by mouth daily at bedtime. For cholesterol.Disp: 30 tabletRfl: 5 losartan (COZAAR) 25 mg tabletTake 1 tablet by mouth once daily.Disp: 30 tabletRfl: 5 HGB A1C [COEPZ6J] Order #: [id number] FUTURE LIPID PANEL BASIC [SQLIPB] Order #: [id number] FUTURE COMP METABOLIC PANEL [SQCMP] Order #: [id number] FUTURE CK CREATINE KINASE [SQCK] Order #: [id number] FUTURE mupirocin (BACTROBAN) 2 % ointmentApply 1 application to affected area three times daily. Location: scalpDisp: 15 gRfl: 1 CONSULT TO ORTHO/PEDIATRICS [[id number]] Order #: [id number]: 1 XR DIGIT GENERAL 3V FRONTAL/LAT/OBL LT [[id number]] Order #: [id number] FUTURE CBC + DIFF [SQCBCDIF] Order #: [id number] FUTUREPrescriptions as of 2017 Sig: BACLOFEN 20 MG TABLET Take 20 mg by mouth once tila* GABAPENTIN 300 MG CAPSULE Start with one tab daily x 5 * GLIPIZIDE 5 MG TABLET Take 1 tablet by mouth once d* ATORVASTATIN 10 MG TABLET Take 1 tablet by mouth daily * LOSARTAN 25 MG TABLET Take 1 tablet by mouth once d* CLOTRIMAZOLE-BETAMETHASONE 1 * Apply 1 application to affect * MUPIROCIN 2 % TOPICAL OINTMENT Apply 1 application to affect* BLOOD SUGAR DIAGNOSTIC STRIPS Test blood sugar(s) 1 times d* LANCETS Test blood sugar(s) 1 times d* BLOOD-GLUCOSE METER KIT Glucose Meter of Choice - Kit*Problem List As Of Date 2017 Noted Resolved LINDSAY positive [R76.8] INVALID FOR* More... Polyarthralgia [M25.50] INVALID FOR* Controlled type 2 diabetes mellitus without com*INVALID FOR* Neck pain [M54.2] INVALID FOR* Lumbar pain [M54.5] INVALID FOR* Hyperlipidemia, mixed [E78.2] INVALID FOR* Fibromyalgia [M79.7] INVALID FOR* Visit Notes:>> Mariluz Neville LPN Mon Sep 12, 2017 4:27 PM Status: SignedUsed [employer] and spoke with ID# [id number] AND ID#[id number] ordered this encounter Disp Refills Start End GABAPENTIN 300 MG CAPSULE 90 c* 5 09/12/2017 11/19/2017 Sig: Start with one tab daily x 5 days HS, if tolerated increase to BID x 5 days and then to TID if tolerated GLIPIZIDE 5 MG TABLET 90 t* 1 09/12/2017 Route: ORAL Sig: Take 1 tablet by mouth once daily. ATORVASTATIN 10 MG TABLET 30 t* 5 09/12/2017 Route : ORAL Sig: Take 1 tablet by mouth daily at bedtime. For cholesterol. LOSARTAN 25 MG TABLET 30 t* 5 09/12/2017 Route: ORAL Sig: Take 1 tablet by mouth once daily. MUPIROCIN 2 % TOPICAL OINTMENT 15 g 1 09/12/2017 Route: TOPICAL Sig: Apply 1 application to affected area three times daily. Location: scalpMedications Discontinued During This Encounter gabapentin (NEURONTIN) 300 mg capsule 90 c* 2 07/06/2017 09/12/2017 Sig: Start with one tab daily x 5 days HS, if tolerated increase to BID x 5 days and then to TID if tolerated Disc : Reason for discontinue is not on file. glipiZIDE (GLUCOTROL) 5 mg tablet 09/12/2017 Class: Historical Med Route: ORAL Sig: Take 5 mg by mouth once daily. Disc: Reason for discontinue is not on file. atorvastatin (LIPITOR) 10 mg tablet 30 t* 5 07/06/2017 09/12/2017 Route: ORAL Sig: Take 1 tablet by mouth daily at bedtime. For cholesterol. Disc: Reason for discontinue is not on file. losartan (COZAAR) 25 mg tablet 09/12/2017 Class: Historical Med Route: ORAL Sig: Take 25 mg by mouth once daily. Disc: Reason for discontinue is not on file.Disposition: Return in about 3 months (around 12/13/2017).Follow-up and Disposition History RecordedEncounter Number: [id number] Status:Closed by Kayla BRO PA-C on 09/12/17 CNCO Observed: 08/03/2017 Status: COMPLETED Source: [place] 2:44 PM [facility] [place] REPOSITORY HNO ID: [id number]: Mammography CoordinatorService: (none)Author Type: PhysicianType: LetterFiled: 08/04/2017 11:32 PMNote Text: August 03, 2017 PID: [id number] [place], [place] [address]Kajb Ms. Alves,Your recent breast imaging examination performed on 08/03/2017 showed anarea that we believe is probably benign (not cancer). A six monthfollow-up is recommended to ensure your breast health. Please [phone] to schedule an appointment for these tests if you have notalready done so.Early detection of cancer is very important. We also understandrecommendations regarding breast cancer screening are controversial.Please discuss with your primary care provider which strategy is best foryou and whether a mammogram is right for you.Your breast images and report will be kept on file here as part of yourpermanent medical record and are available for your continuing care.Thank you for allowing us to help in meeting your health care needs.Sincerely,Dr. Jarvisterpreting RadiologistWoostVeteran's Administration Regional Medical Center (# mo Follow-up) [facility] US BREAST LTD Observed: 08/03/2017 Status: F Source: [facility] 2:38 PM [facility] REPOSITORY * * *Final Report* * *DATE OF EXAM: Aug 03 2017 2:38PM U 0593 - [facility] US BREAST LTD LT / REASON: call back bilateral / left breast / abnormal mammogram * * * * Physician Interpretation * * * * #[id number] - [facility] US BREAST LTD LTULTRASOUND OF LEFT BREAST: 2017HISTORY: Call Back Bilateral / Left Breast / Abnormal Mammogram.RESULT:No prior exams were available for comparison.Real-time ultrasound of the left breast was performed.No abnormalities were seen sonographically in the left breast.IMPRESSION: NEGATIVEThere is no sonographic evidence of malignancy.There is no abnormality seen in the left breast to correspond with the palpable abnormality and mammographic density, however, clinical correlation is recommended.Juan Morales/anusharad:08/03/2017 14:45:36Imaging Technologist: Milly Song [facility] HospitalUltrasound BI-RADS: 1 NegativeTranscriptionist: PenradTranscribe Date/Time: Aug 03 2017 2:39PDictated by : JUAN AHUMADA MDThis examination was interpreted and the report reviewed and electronically signed by: JUAN AHUMADA MD on Aug 03 2017 2:45PM [id number] [facility] US BREAST LTD Observed: 08/03/2017 Status: F Source: [facility] 2:38 PM [facility] REPOSITORY * * *Final Report* * *DATE OF EXAM: Aug 03 2017 2:38PM [facility] 0594 - [facility] US BREAST LTD RT / REASON: right breast us * * * * Physician Interpretation * * * * #[id number] - [facility] US BREAST LTD RTULTRASOUND OF RIGHT BREAST: 08/03/2017HISTORY: Right Breast Us.RESULT:No prior exams were available for comparison.Real-time ultrasound of the right breast was performed.No abnormalities were seen sonographically in the right breast.IMPRESSION: NEGATIVEThere is no sonographic evidence of malignancy.There is no abnormality seen in the right breast to correspond with the palpable abnormality, however, clinical correlation is recommended.Juan Morales/penrad:08/03/2017 14:46:19Imaging Technologist: Yash SanchezCHI St. [facility] Family ClinicUltrasound BI-RADS: 1 NegativeTranscriptionist: ElyseTranscribcecilia Date/Time: Aug 03 2017 2: 20PDictated by : JUAN AHUMADA MDThilesli examination was interpreted and the report reviewed and electronically signed by: JUAN AHUMADA MD on Aug 03 2017 2:46PM [id number] PROGRESS Observed: 08/03/2017 Status: COMPLETED Source: [place] 2:18 PM [facility] [place] REPOSITORY HNO ID: [id number]: Barbara Song TechService: (none)Author Type: (none)Type: Progress NotesFiled: 08/03/2017 2:50 PMNote Text: Radiology Service Progress NotePATIENT NAME: Reilly CanelaRN: [id number] OF SERVICE: August 03, 2017TIME: 2:18 PMPATIENT IDENTITY VERIFICATION COMPLETED USING TWO (2) METHODS: Patientconfirmed name verbally and Date of .PATIENT GENDER DATA: Female. status: : NoBreastfeeding status: NO.PATIENT RELEVANT IMPLANT DATA REVIEWED: Not ApplicableRADIOLOGY DEPARTMENT: UltrasoundPERIPHERAL IV DATA: Not applicableSIGNED BY: Barbara Song TechCooper Green Mercy [facility] 2017 2:18 PM [facility] DIAGNOSTIC LT Observed: 08/03/2017 Status: F Source: [place] 2:03 PM [facility] [place] REPOSITORY * * *Final Report* * *DATE OF EXAM: Aug 03 2017 2:03PM [facility] 0621 - [facility] DIAGNOSTIC LT / REASON: Callback left // Abnormal mammogram * * * * Physician Interpretation * * * *RESULT: # [id number] - [facility] DIAGNOSTIC LTUNILATERAL LEFT DIGITAL DIAGNOSTIC MAMMOGRAM WITH CAD: 08/03/2017HISTORY: Callback Left // Abnormal Mammogram.RESULT:TECHNIQUE: The study was acquired using full field digital technology and interpreted from soft copy.Current study was also evaluated with a Computer Aided Detection (CAD).Comparison is made to exam dated: 07/25/2017 mammogram - [facility].There are scattered fibroglandular elements in the left breast.There is a 9 mm density in the left breast at 12 o'clock anterior depth. This correlates with the prior exam.No other significant masses or calcifications are seen in the breast.IMPRESSION: PROBABLY BENIGN - SHORT TERM INTERVAL FOLLOW-UP RECOMMENDEDThe 9 mm density in the left breast likely represents fibroglandular tissue and is probably benign.A follow-up mammogram in 6 months is recommended to demonstrate stability.Juan Ahumada M.D.rk/penrad:08/03/2017 14:44:37Imaging Technologist: Ana MICHAEL (R)(Kayla), [facility] Hospitalletter sent: # Mo FUMammogram BI-RADS: 3 Probably benign finding - short term interval follow-up recommendedTranscriptionist: ElyseTransmichelle Date/Time: Aug 03 2017 1: 42PDictated by: JUAN AHUMADA MDThilesli examination was interpreted and the report reviewed and electronically signed by: JUAN AHUMADA MD on Aug 03 2017 2:44PM [id number] PROGRESS Observed: 08/03/2017 Status: COMPLETED Source: [place] 1:35 PM [facility] REPOSITORY HNO ID: [id number]: Ana Delcid RtService : (none)Author Type: (none)Type: Progress NotesFiled: 08/03/2017 1:35 PMNote Text: Radiology Service Progress NotePATIENT NAME: Reilly SullivanN: [id number] OF SERVICE: August 03, 2017TIME: 1:35 PMPATIENT IDENTITY VERIFICATION COMPLETED USING TWO (2) METHODS: Patientconfirmed name verbally and Date of .PATIENT GENDER DATA: Female. status: : NoBreastfeeding status: NO.PATIENT RELEVANT IMPLANT DATA REVIEWED: Not ApplicableRADIOLOGY DEPARTMENT: Women's HealthPERIPHERAL IV DATA: Not applicableSIGNED BY: Ana Delcid RtFebruary 2017 1:35 PM PROGRESS Observed: 07/27/2017 Status: COMPLETED Source: [place] 1:11 PM [facility] [place] REPOSITORY HNO ID: [id number]: Marc Richmond: (none)Author Type: PhysicianType: Progress NotesFiled: 07/27/2017 2:45 PMNote Text:2017[facility] PAIN MANAGEMENT CENTERCHIEF COMPLAINT: Low back and diffuse body painHPI: Reilly Alves is a 56 year old female who [facility] [place] [facility] at the kind request of the PCP, A copy of this office note is beingsent to the requesting physician through via electronic medical record.Her pain is located in the low back and neck and also throughout the bodyand is described as aching, burning, radiating and sharp. She states thatthe pain began years ago and denies injury or trauma. The patient statesthat the onset was gradual. Symptoms have been worsening. The painradiates to bilateral lower extremities , bilateral upper extremities.The pain level is at 9/10 and is intermittent. It is exacerbated bysitting, standing, forward flexion, lifting, getting up from sitting,lying down and walking. It is mitigated/relieved by use of medications.Work Status: currently unemployedPending Litigation: NoPRIOR TREATMENT:Medication(s): She has tried the following for relief of her back/legpain:Neurontin/gabapentinThe patient states the last dose of .Neurontin/gabapentin was taken at July 26, 2017.Physical Therapy: She has not had physical therapy for her currentsymptoms.Spinal Injections: She has gotten prior spinal injections.Nerve blocks.Other:TENS UnitCurrent Outpatient Prescriptions:atorvastatin (LIPITOR) 10 mg tablet Take 1 tablet by mouth daily atbedtime. For cholesterol.clotrimazole-betamethasone (LOTRISONE) cream Apply 1 application toaffected area twice daily. UNTIL CLEAR FOR UP TO 2-3 WEEKSgabapentin (NEURONTIN) 300 mg capsule Start with one tab daily x 5 daysHS, if tolerated increase to BID x 5 days and then to TID if toleratedblood sugar diagnostic (BLOOD GLUCOSE TEST) test strip Test blood sugar(s)1 times daily. Dx: Type 2 DM - Controlled E11.9 Insulin: NoLancets lancets Test blood sugar(s) 1 times daily. Dx: Type 2 DM -Controlled E11.9 Insulin: NoBlood-Glucose Meter monitoring kit Glucose Meter of Choice - Kit - Dx:Other DM Code hyperglycemiaglipiZIDE (GLUCOTROL) 5 mg tablet Take 5 mg by mouth once daily.losartan (COZAAR) 25 mg tablet Take 25 mg by mouth once daily.No current facility-administered medications for this visit.Allergies: Aspirin; IbuprofenPAST MEDICAL HISTORYDiagnosis Date- Chronic back pain- Chronic neck pain- Elevated glucose 07/2016- HTN (hypertension) 2012PA SURGICAL HISTORYProcedure Laterality Date- SECTION HX 3 times- HYSTERECTOMY 2007Social History Marital status: Single Spouse name: Years of education: Number of children:Social History Main Topics Smoking status: Former Smoker Packs/day: 0.00 Years: 0.00 Smokeless status: Never Used Alcohol use: No Sexual activity: NoFAMILY HISTORYProblem Relation Age of Onset- Cancer Mother uterine- Diabetes Father- Other [OTHER] Father of sepsis due to liver failure- Hypertension Sister- Diabetes Sister- Hypertension Brother- Diabetes BrotherREVIEW OF SYSTEMS:Constitutional:(-) Fever(-) Night Sweats(-) Weight Gain(-) Weight Loss( -) Fatigue Cardiovascular:(-) Chest Pain(-) Palpitations(-) Lightheadedness(-) Swelling of Ankles(-) Hx Heart SurgeryRespiratory:(-) Shortness of Breath(-) Cough(-) Wheezing(-) Snoring Gastrointestinal:(-) Incontinence(-) Abdominal Pain(-) Diarrhea(-) Constipation(-) Nausea/Vomiting(-) Heart BurnEndocrine:(-) Thyroid Disorder(+) Diabetes Hematologic:(-) Prolonged Bleeding(-) Easy BruisingGenitourinary:(-) Incontinence(-) Frequency(-) Urinary Urgency Skin:(-) Rashes(-) Itching(-) Other LesionsNeurologic:(-) Headache(-) Double Vision(-) Confusion(-) Paralysis(-) Vertigo(-) Syncope Psychiatric:(+) Depression(+) Anxiety(-) Delusions(-) Hallucinations(-) Suicidal ThoughtsLeonila Walden Report reviewed: YesNarcotic Agreement reviewed and signed?: N/ABaseline Urine Toxicology obtained: N/AUrine Panel:No results found for: UQCANN, UQBNZL, BFF7DLB, UQAMPH, UQMAMP, UQBUPRE,UQNORBUP, UQMTHD, UQEDDP, UQTRAM, UQDTRM, UQFNTL, UQNFTL, UQCODE, UQMORP,UQDCDN, UQHCOD, UQOXYC, UQHMOR, UQOXYM, UQCREA, UQPH, UQSPGR, UQOXID, UQSPQThe pain panel was N/AOBJECTIVE:PHYSICAL EXAMINATION:Pulse 82, height 160 cm (5' 3 ), weight 79.4 kg (175 lb), SpO2 98 %.PHYSICAL EXAMINATION:GENERAL: Well appearing , in no acute distressPSYCH: Mood and affect is appropriate. Awake, alert, and oriented x 3.The patient communicated through an intrepreter, her son.SKIN: Skin color, texture, turgor normal, no rashes or lesionsHEENT: Normocephalic, atraumatic.CV : RRR, There are no significant varicosities and no pedal edemaRESP: normal respiratory motion, normal breath sounds.GI: Abdomen soft and non-tender.MS: Bilateral upper and lower extremity strength is normal and symmetric. No atrophy or tone abnormalities are noted. Neck exam: intact ROM. Paracervical tenderness.Back exam: diffuse paraspinal tenderness. ROM was slow and limited due topain.SLR: SLR variable sitting - negative.SI joint: Tenderness over the bilateral SI joints.Extremities: Peripheral joint ROM is full and pain free without obviousinstability or laxity in all four extremities. No edema or skindiscolorations noted.Ambulation: walks independently, unassisted. Slow to stand.Gait: NormalNEUR: Bilateral upper and lower extremity coordination and muscle stretchreflexes are physiologic and symmetric. No loss of sensation is noted.IMAGING STUDIES:No new imaging studies were reviewed during this office visit. Xray ofcervical and lumbar spine reviewed.ASSESSMENT AND PLAN:Diagnosis:Encounter Diagnosis ICD-10-CM1. Cervicalgia M54.22. Polyarthralgia M25.503. Fibromyalgia M79.74. DDD (degenerative disc disease), cervical M50.305. DDD (degenerative disc disease), lumbar M51.36Discussion:A discussion was entertained regarding chronic opioid therapy as itrelates to chronic benign pain. 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 .Ms. Alves understands that her pain may not be entirelyrelieved by the use of medications alone. Other factors that maycontribute to chronic pain were discussed including smoking, obesity, joy sedentary lifestyle.Plan:1) Discussed fibromaylgia and how it affects chronic pain.2) Discussed functional improvement rather than pain improvement.3) Recommend PT with aquatics to land based program.4) Trial of baclofen. OK to continue with gabapentin per currentprescriber.4) We discussed with the patient potential secondary side effects ofmedication prescribed and the medications are to be taken as instructed.5) The patient was counseled regarding the importance of daily exerciseprogram..6) RTC 3 monthsI have discussed and confirmed the above treatment plan with the patient.and I have reviewed the nurses notes and I am aware of the family/socialhistory.Marc Chavez MDJuly 27, 2017cc: PAZ Pena-[id number] [facility] [address]Ybbhb: [phone]: [phone] of consultation to be transmitted via electronic medical recordfor those providers who practice within [facility] or with access to [employer] via [employer], or via letter. CNOV Observed: 07/27/2017 Status: COMPLETED Source: [place] 12:40 PM [facility] REPOSITORY Office Visit (PNMDNA) ---------REILLY ALVES ([id number]) 1960 F [place] Time Provider Department07/27/17 12:40 PM MARC CHAVEZ PNMDNA During your visit today, we recorded the following information about you: Pulse Weight Height 82/minute 79.4 kg 1.6 mPaul Vic Chavez MD 07/27/2017 2:45 PM Signed07/27/2017[facility]ENTERCHIE[facility] COMPLAINT: Low back and diffuse body painHPI: Reilly Alves is a 56 year old female who presents to [facility] at the [facility] today at thekind request of the PCP, A copy of this office note is being sent to therequesting physician through via electronic medical record. Her pain islocated in the low back and neck and also throughout the body and is describedas aching, burning, radiating and sharp. She states that the pain began yearsago and denies injury or trauma. The patient states that the onset was gradual. Symptoms have been worsening. The pain radiates to bilateral lowerextremities , bilateral upper extremities. The pain level is at 9/10 and isintermittent. It is exacerbated by sitting, standing, forward flexion,lifting, getting up from sitting, lying down and walking. It ismitigated/relieved by use of medications.Work Status: currently unemployedPending Litigation: NoPRIOR TREATMENT:Medication(s): She has tried the following for relief of her back/leg pain:Neurontin/gabapentinThe patient states the last dose of .Neurontin/ gabapentin was taken at July 26, 2017.Physical Therapy: She has not had physical therapy for her current symptoms.Spinal Injections: She has gotten prior spinal injections.Nerve blocks.Other:TENS UnitCurrent Outpatient Prescriptions:atorvastatin (LIPITOR) 10 mg tablet Take 1 tablet by mouth daily at bedtime.For cholesterol.clotrimazole-betamethasone (LOTRISONE) cream Apply 1 application to affectedarea twice daily. UNTIL CLEAR FOR UP TO 2-3 WEEKSgabapentin (NEURONTIN) 300 mg capsule Start with one tab daily x 5 days HS, iftolerated increase to BID x 5 days and then to TID if toleratedblood sugar diagnostic (BLOOD GLUCOSE TEST) test strip Test blood sugar(s) 1times daily. Dx: Type 2 DM - Controlled E11.9 Insulin: NoLancets lancets Test blood sugar(s) 1 times daily. Dx: Type 2 DM - QtpqmgwkevF56.9 Insulin: NoBlood-Glucose Meter monitoring kit Glucose Meter of Choice - Kit - Dx: OtherDM Code hyperglycemiaglipiZIDE (GLUCOTROL) 5 mg tablet Take 5 mg by mouth once daily.losartan (COZAAR) 25 mg tablet Take 25 mg by mouth once daily.No current facility-administered medications for this visit.Allergies:Aspirin; IbuprofenPAST MEDICAL HISTORYDiagnosis Date- Chronic back pain- Chronic neck pain- Elevated glucose 07/2016- HTN (hypertension) 2013PAST SURGICAL HISTORYProcedure Laterality Date- SECTION HX 3 times- HYSTERECTOMY 2007Social History Marital status: Single Spouse name: Years of education: Number of children:Social History Main Topics Smoking status: Former Smoker Packs/day: 0.00 Years: 0.00 Smokeless status: Never Used Alcohol use: No Sexual activity: NoFAMILY HISTORYProblem Relation Age of Onset - Cancer Mother uterine- Diabetes Father- Other [OTHER] Father of sepsis due to liver failure- Hypertension Sister- Diabetes Sister- Hypertension Brother- Diabetes BrotherREVIEW OF SYSTEMS:Constitutional:(-) Fever(-) Night Sweats(-) Weight Gain(-) Weight Loss(-) Fatigue Cardiovascular:( -) Chest Pain(-) Palpitations(-) Lightheadedness(-) Swelling of Ankles(-) Hx Heart SurgeryRespiratory:(-) Shortness of Breath(-) Cough(-) Wheezing(-) Snoring Gastrointestinal:(-) Incontinence(-) Abdominal Pain(-) Diarrhea(-) Constipation(-) Nausea/Vomiting(-) Heart BurnEndocrine:(-) Thyroid Disorder(+) Diabetes Hematologic:(-) Prolonged Bleeding(-) Easy BruisingGenitourinary:(-) Incontinence(-) Frequency(-) Urinary Urgency Skin:(-) Rashes(-) Itching(-) Other LesionsNeurologic:(-) Headache(-) Double Vision(-) Confusion(-) Paralysis(-) Vertigo(-) Syncope Psychiatric:(+) Depression(+) Anxiety(-) Delusions(-) Hallucinations(-) Suicidal ThoughtsLeonila Walden Report reviewed: YesNarcotic Agreement reviewed and signed?: N/ABaseline Urine Toxicology obtained: N/AUrine Panel:No results found for: UQCANN, UQBNZL, MSG8LVM, UQAMPH, UQMAMP, UQBUPRE,UQNORBUP, UQMTHD, UQEDDP, UQTRAM, UQDTRM, UQFNTL, UQNFTL, UQCODE, UQMORP,UQDCDN, UQHCOD, UQOXYC, UQHMOR, UQOXYM, UQCREA, UQPH, UQSPGR, UQOXID, UQSPQThe pain panel was N/AOBJECTIVE:PHYSICAL EXAMINATION:Pulse 82, height 160 cm (5' 3ANDquot;), weight 79.4 kg (175 lb), SpO2 98 %.PHYSICAL EXAMINATION:GENERAL: Well appearing, in no acute distressPSYCH: Mood and affect is appropriate. Awake, alert, and oriented x 3. Thepatient communicated through an intrepreter, her son.SKIN: Skin color, texture, turgor normal, no rashes or lesionsHEENT: Normocephalic, atraumatic.CV: RRR, There are no significant varicosities and no pedal edemaRESP: normal respiratory motion, normal breath sounds.GI: Abdomen soft and non- tender.MS: Bilateral upper and lower extremity strength is normal and symmetric. Noatrophy or tone abnormalities are noted. Neck exam: intact ROM. Paracervical tenderness.Back exam: diffuse paraspinal tenderness. ROM was slow and limited due to pain.SLR: SLR variable sitting - negative.SI joint: Tenderness over the bilateral SI joints.Extremities: Peripheral joint ROM is full and pain free without obviousinstability or laxity in all four extremities. No edema or skin discolorationsnoted.Ambulation: walks independently, unassisted. Slow to stand.Gait: NormalNEUR: Bilateral upper and lower extremity coordination and muscle stretchreflexes are physiologic and symmetric. No loss of sensation is noted.IMAGING STUDIES:No new imaging studies were reviewed during this office visit. Xray of cervicaland lumbar spine reviewed.ASSESSMENT AND PLAN:Diagnosis:Encounter Diagnosis ICD-10-CM1. Cervicalgia M54.22. Polyarthralgia M25.503. Fibromyalgia M79.74. DDD (degenerative disc disease), cervical M50.305. DDD (degenerative disc disease), lumbar M51.36Discussion:A discussion was entertained regarding chronic opioid therapy as it relates tochronic benign pain. 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 Alves understands that her pain may not be entirely relieved by the useof medications alone. Other factors that may contribute to chronic pain werediscussed including smoking, obesity, and a sedentary lifestyle.Plan:1) Discussed fibromaylgia and how it affects chronic pain.2) Discussed functional improvement rather than pain improvement.3) Recommend PT with aquatics to land based program.4) Trial of baclofen. OK to continue with gabapentin per current prescriber.4) We discussed with the patient potential secondary side effects of medicationprescribed and the medications are to be taken as instructed.5) The patient was counseled regarding the importance of daily exerciseprogram..6) RTC 3 monthsI have discussed and confirmed the above treatment plan with the patient. Patrick have reviewed the nurses notes and I am aware of the family/social history.Marc Chavez MDJan2017cc: JOSE ANGEL PenaC1740 [facility]OOST[facility] [address]Lwwdx: [phone]: [phone] of consultation to be transmitted via electronic medical record forthose providers who practice within [facility] or with access to [employer] via [employer],or via letter.Referring Provider: Kayla BRO (KEREN) [[id number]]Allergies As of Date: 07/27/2017 Noted Allergy ReactionASPIRIN 05/25/2017 10 - AnaphylaxisIBUPROFEN 05/25/2017 10 - AnaphylaxisDate Reviewed: 07/27/2017Reviewed by: Leonila Landeros Ma - Fully AssessedReason for Visit: New Patient [172] Cmt: Polyarthralgia Neck pain and Lumbar painPrimary Visit Diagnosis: Cervicalgia [M54.2] Other Visit Diagnoses:Polyarthralgia [M25.50] Fibromyalgia [M79.7] DDD (degenerative disc disease), cervical [M50.30] DDD ( degenerative disc disease), lumbar [M51.36]Order(s):baclofen (LIORESAL) 10 mg tabletTake 1 tablet by mouth once daily.Disp: 30 tabletRfl: 1 CONSULT TO PHYSICAL THERAPY [7045] Order # : [id number]: 1Prescriptions as of 07/27/2017 Sig: ATORVASTATIN 10 MG TABLET Take 1 tablet by mouth daily * CLOTRIMAZOLE-BETAMETHASONE 1 * Apply 1 application to affect* GABAPENTIN 300 MG CAPSULE Start with one tab daily x 5 * BLOOD SUGAR DIAGNOSTIC STRIPS Test blood sugar(s) 1 times d* LANCETS Test blood sugar(s) 1 times d* BLOOD- GLUCOSE METER KIT Glucose Meter of Choice - Kit* GLIPIZIDE 5 MG TABLET Take 5 mg by mouth once daily. LOSARTAN 25 MG TABLET Take 25 mg by mouth once tila* BACLOFEN 10 MG TABLET Take 1 tablet by mouth once d*Problem List As Of Date 07/27/2017 Noted Resolved LINDSAY positive [R76.8] INVALID FOR* More... Polyarthralgia [M25.50] INVALID FOR* Controlled type 2 diabetes mellitus without com* INVALID FOR* Neck pain [M54.2] INVALID FOR* Lumbar pain [M54.5] INVALID FOR* Hyperlipidemia, mixed [E78.2] INVALID FOR* Fibromyalgia [M79.7] INVALID FOR*Prescriptions ordered this encounter Disp Refills Start End BACLOFEN 10 MG TABLET 30 t* 1 07/27/20172017 Route: ORAL Sig: Take 1 tablet by mouth once daily. Status: Closed by MARC CHAVEZ MD on 07/27/17 CNCO Observed: 07/25/2017 Status: COMPLETED Source: [place] 3:01 PM [facility] REPOSITORY HNO ID: [id number]: Mammography CoordinatorService: (none)Author Type: PhysicianType: LetterFiled: 07/26/2017 11:32 PMNote Text: July 25, 2017 PID: [id number] [place], [place] [address] Ms. Alves,Your recent breast imaging exam on 07/25/2017 showed a possible findingthat requires additional imaging studies for a complete evaluation. Mostsuch findings are probably benign (not cancer). Please call [phone] schedule an appointment for these tests if you have not already doneso.Your breast images and report will be kept on file here as part of yourpermanent medical record and are available for your continuing care.Thank you for allowing us to help in meeting your health care needs.Sincerely,Dr. KiranInterpredaniel [facility] (Additional imaging) PROGRESS Observed: 07/25/2017 Status: COMPLETED Source: [place] 1:52 PM [facility] REPOSITORY HNO ID: [id number]: Gaby Winter RtService: (none) Author Type: (none)Type: Progress NotesFiled: 07/25/2017 1:53 PMNote Text: Radiology Service Progress NotePATIENT NAME: Reilly Davey: [id number] OF SERVICE: July 25, 2017TIME: 1:53 PMPATIENT IDENTITY VERIFICATION COMPLETED USING TWO (2) METHODS: Patientconfirmed name verbally and Date of .PATIENT GENDER DATA : Female. status: : NoBreastfeeding status: NO.PATIENT RELEVANT IMPLANT DATA REVIEWED: Not ApplicableRADIOLOGY DEPARTMENT: Women's Health screeningPERIPHERAL IV DATA: Not applicableSIGNED BY: Gaby Winter RtJuly 25, 2017 1:53 PM JOSE MARIA SCREENING Observed: 07/25/2017 Status: F Source: [place] 1:49 PM [facility] RE[facility]ORY * * *Final Report* * *DATE OF EXAM: Jul 25 2017 1:49PM [facility] - [facility] SCREENING / REASON: Encounter for screening mammogram for malignant neoplasm of breast * * * * Physician Interpretation * * * *RESULT: #[id number] - JOSE MARIA SCREENINGBILATERAL DIGITAL SCREENING MAMMOGRAM WITH CAD: 07/25/2017HISTORY: /Screening Mammogram - patient reports THE FOLLOWING breast symptoms: palpable lumps in both breast for four years. The areas of concern were marked with triangle markers by the technologist. Most recent prior mammography was performed in [place]--patient unable to obtain secondary to recent hurricaine.RESULT:TECHNIQUE: The study was acquired using full field digital technology and interpreted from soft copy.Current study was also evaluated with a Computer Aided Detection (CAD).There are no prior films available for comparison.There are scattered fibroglandular elements in both breasts.There is a possible focal asymmetry in the left breast at 12 o'clock anterior depth.No other significant masses, calcifications, or other findings are seen in either breast.IMPRESSION: INCOMPLETE: NEEDS ADDITIONAL IMAGING EVALUATIONThe possible focal asymmetry in the left breast is indeterminate. Additional views are recommended.There is no abnormality seen in either breast to correspond with the palpable abnormality indicated by a triangular marker, however, ultrasound is recommended.Amanda Kiran M.D.lp/penrad:07/25/2017 15:01:08Imaging Technologist : Gaby Winter RT(R)(M), [facility] Higginsletter sent: Additional Imaging NeededMammogram BI-RADS: 0 Incomplete: needs additional imaging evaluationTranscriptionist: Carlee Date/Time: Jul 25 2017 1: 41PDictated by: AMANDA KIRAN MDThilesli examination was interpreted and the report reviewed and electronically signed by: AMANDA KIRAN MD on Jul 25 2017 3:01PM [id number] PROGRESS Observed: 07/18/2017 Status: COMPLETED Source: [place] 4:20 PM [facility] REPOSITORY HNO ID: [id number]: Panfilo Amos (Rt)Serviccecilia: (none)Author Type: TechnicianType: Progress NotesFiled: 07/18/2017 4:20 PMNote Text: Radiology Service Progress NotePATIENT NAME: Reilly CanelaRN: [id number] OF SERVICE: July 18, 2017TIME: 4:20 PMPATIENT IDENTITY VERIFICATION COMPLETED USING TWO (2) METHODS: Patientconfirmed name verbally and Date of .PATIENT GENDER DATA: Female. status: : NoBreastfeeding status: NO.PATIENT RELEVANT IMPLANT DATA REVIEWED: Not ApplicableRADIOLOGY DEPARTMENT: General X- ray: Exam(s) Completed: Spine X-Ray(s):Cervical AP / LAT and Lumbar AP / LAT / L5-[id number] IV DATA: Not applicableSIGNED BY: RT BetteJuly 18, 2017 4:20 PM XR LUMBAR 3V Observed: 07/18/2017 Status: F Source: [place] AP/LAT/L5-S1 4:15 PM [facility] REPOSITORY * * *Final Report* * *DATE OF EXAM: Jul 18 2017 4:15PM WOX 5228 - XR LUMBAR 3V AP/LAT/L5-S1 / REASON: Low back pain * * * * Physician Interpretation * * * * EXAM TITLE: XR LUMBAR 3V AP/LAT/L5-S1EXAM DATE/TIME: 07/18/2017 4:15 PMCOMPARISON: None.CLINICAL INDICATION/HISTORY: Low back painTECHNIQUE: AP, lateral and cone down lateral views of the lumbar spine are presented.FINDINGS:There are five ajn-dba-jgkdesn lumbar vertebra.No subluxation of the lumbar spine.L1 vertebral body compression deformity/age indeterminate fracture is present, involving the superior endplate.Multilevel disc space narrowing is present, involving L3-4 and L4-5 levels.There is moderate osteophyte formation in the lumbar spine and visualized lower thoracic spine.IMPRESSION: Lumbar spine degenerative changes with multilevel disc space narrowing. L1 vertebral body compression deformity/age indeterminate fracture.Almond Blancher Hand: RODRICK Transcribe Date/Time: Jul 18 2017 5: 06PDictated by : Hilary LASSITER examination was interpreted and the report reviewed and electronically signed by: YOCASTA SIMENTAL MD on Jul 18 2017 5:09PM [id number] XR CERVICAL 3V Observed: 07/18/2017 Status: F Source: [place] AP/LAT/ODON 4:11 PM [facility] REPOSITORY * * *Final Report* * *DATE OF EXAM: Jul 18 2017 4:11PM WOX 5309 - XR CERVICAL 3V AP/LAT/ODON / REASON: Cervicalgia * * * * Physician Interpretation * * * * EXAM TITLE: XR CERVICAL 3V AP/LAT/ODONEXAM DATE/TIME: 07/18/2017 4:11 PMCOMPARISON: None.CLINICAL INDICATION/HISTORY: CervicalgiaTECHNIQUE: AP, lateral, swimmer's and odontoid views of the cervical spine are presented.FINDINGS:No fractures or subluxations are noted.Minimal reversal of the cervical spine curvature is noted.There is multilevel disc space narrowing involving C3-C6 levels.There is at least moderate osteophyte formation.The prevertebral soft tissues are normal.IMPRESSION: Cervical spine degenerative changes with multilevel disc space narrowing.Almond Blancher Hand: TBi Connect Transcribe Date/Time: Jul 18 2017 5:06PDictated by : Hilary LASSITER examination was interpreted and the report reviewed and electronically signed by: YOCASTA SIMENTAL MD on Jul 18 2017 5:12PM [id number] PROGRESS Observed: 07/18/2017 Status: COMPLETED Source: [place] 3:20 PM [facility] REPOSITORY HNO ID: [id number]: Kayla Bartlett) BartonService: (none)Author Type: Physician AssistantType: Progress NotesFiled: 07/18/2017 4: 18 PMNote Text:56 year old female with c/o here for follow-up1. Chronic pain/fibromyalgia/ elevated LINDSAY: Patient has had improvementwith gabapentin, currently taking twice a day 300 mg. States it lasts forabout 3 hours and then pain returns. She came to the wrong building forphysical therapy and then was late. This was not rescheduled. Patienthas major issues with communication. We addressed her need to have atranslator even when scheduling appointments. She is complaining of painbilateral neck and shoulders today as well as bilateral hips. She isscheduled on 07/27/[address] Marc Chavez for pain management. She has notcompleted xrays of neck, back or hips. With positive LINDSAY difficult toassess what is possibly autoimmune vs. Possible cervical or lumbar disdisease, arthritis in hips. May need scans. I will reach out to Dr. Neely to whether or not it would be appropriate to add and further testing orstart medications.2. Cold symptoms from last visit resolved pretty much yesterday. She gotsteadily better without fever. No persistent cough or drainage.3. Rash abdomen: no change though acknowledge not burning or hurtingnow.HISTORIESFAMILY HISTORYProblem Relation Age of Onset- Cancer Mother uterine- Diabetes Father- Other [OTHER] Father of sepsis due to liver failure- Hypertension Sister- Diabetes Sister- Hypertension Brother- Diabetes BrotherPAST MEDICAL HISTORYDiagnosis Date- Chronic back pain- Chronic neck pain- Elevated glucose 07/2016- HTN (hypertension) 2012PAST SURGICAL HISTORYProcedure Laterality Date- SECTION HX 3 times- HYSTERECTOMY 2007Social History Marital status: Single Spouse name: Years of education: Number of children:Social History Main Topics Smoking status: Former Smoker Packs/ day: 0.00 Years: 0.00 Smokeless status: Never Used Alcohol use: No Sexual activity: NoACTIVE PROBLEM LISTAna PositivePolyarthralgiaControlled Type 2 Diabetes Mellitus Without Complication (Hcc)Neck PainLumbar PainHyperlipidemia, MixedFibromyalgiaCurrent Outpatient Prescriptions:atorvastatin (LIPITOR) 10 mg tablet Take 1 tablet by mouth daily atbedtime. For cholesterol. Disp: 30 tablet Rfl: 5clotrimazole-betamethasone (LOTRISONE) cream Apply 1 application toaffected area twice daily. UNTIL CLEAR FOR UP TO 2-3 WEEKS Disp: 15 g Rfl:1gabapentin ( NEURONTIN) 300 mg capsule Start with one tab daily x 5 daysHS, if tolerated increase to BID x 5 days and then to TID if toleratedDisp: 90 capsule Rfl: 2glipiZIDE (GLUCOTROL) 5 mg tablet Take 5 mg by mouth once daily. Disp:Rfl:losartan (COZAAR) 25 mg tablet Take 25 mg by mouth once daily. Disp: Rfl:blood sugar diagnostic (BLOOD GLUCOSE TEST) test strip Test blood sugar(s)1 times daily. Dx: Type 2 DM - Controlled E11.9 Insulin: No Disp: 50Strip Rfl: 5Lancets lancets Test blood sugar(s) 1 times daily. Dx: Type 2 DM -Controlled E11.9 Insulin: No Disp: 100 Each Rfl: 3Blood-Glucose Meter monitoring kit Glucose Meter of Choice - Kit - Dx:Other DM Code hyperglycemia Disp: 1 Each Rfl: 0No current facility-administered medications for this visit.DILATED RETINAL EXAM due on 1959URINE ALBUMIN CREATININE RATIO due on 1975DIABETIC FOOT EXAM due on 1975ONE PNEUMOVAX PRIOR TO AGE 65 due on 1975PAP EVERY 5 YEARS due on 1989HPV EVERY 5 YEARS due on 1989MAMMOGRAM due on 1999COLORECTAL CANCER SCREENING,SEE MODIFIER due on 2009EXAM:BP 150/88 Pulse 80 Temp 36.9 ?C (98.4 ?F) (Tympanic) Resp 16 Wt78.9 kg (174 lb) BMI 31.83 kg/ d7Jnffuxaf overeweight adult woman in no acute distress. Alert and orientedall spheres. Normal affect and cognition. Speech normal. No deficits tolearning or comprehension.Skin warm, dry, pink to lips and nailbeds. Normal turgor. Continues withhyperpigmented discoid patch on abdomen. Looks about the same, brownishwith rounded borders, slightly raised. No erythema or tenderness.Respirations regular and unlabored.HEENT WNL. TM's clear. Nose and oropharynx free from injection or lesion.No cervical lymph nodes. Thyroid non-tender, no masses. Tender bilaterallyneck muscles with trigger points. ROM is normal but c/o pain.Chest CTA. HRRR without murmur or gallop.Abdomen: active bowel sounds throughout, soft, nontender, no masses ororganomegaly. No CVAT.Extrem: no clubbing, cyanosis, edema. Extremities are warm and pink withprompt capillary refill. Tender bilateral hips, greater trochanters andmuscular areas medial gluteus. ROM with flexion to 120 degreesbilaterally. Restricted internal ROM bilateral with pain. Full externalrotation.OMT: myofascial release to trigger points bilateral neck with improvement.ASSESSMENT/PLAN:1. Visit for screening mammogram - ICD9: V76.12, ICD10: Z12.31 (primarydiagnosis)- Encouraged monthly BSE- Follow up for annual exam in one year.- JOSE MARIA SCREENING2. Controlled type 2 diabetes mellitus without complication, unspecifiedlong term insulin use status (HCC) - ICD9: 250.00, ICD10: E11.9Controlled.- Continue current medications3. Fibromyalgia - ICD9: 729.1, ICD10: M79.7Improving with gabapentin. increase to TID and report progress in 2 weeks.4. LINDSAY positive - ICD9: 795.79, ICD10: R76.8Has possible discoid plaque on abdomen. May need bx. Complete lupus workup.- LUPUS ANTICOAG PL- PROTEIN CREATININE RATIO- COMPLMNT DEF ASSAY5. Neck pain - ICD9: 723.1, ICD10: M54.2Outstanding XR6. Lumbar pain - ICD9: 724.2, ICD10: M54.5Outstanding XR7. Bilateral hip pain - ICD9: 719.45, ICD10: M25.551, M25.552Outstanding XR8. Language barrier to communication - ICD9: V49.89, ICD10: Z78.9Many missed appointments, xrays. 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 Went over instructions twice with teach back.F/u 2 months.35 minute visit with KEREN Hickey Observed: 07/18/2017 Status: COMPLETED Source: [place] 2:20 PM [facility] [place] REPOSITORY Office Visit (FAMPWS) ---------REILLY ALVES ([id number]) 1960 [facility] Time Provider Department07/18/17 2:20 PM Kayla BRO) SAYDA During your visit today, we recorded the following information about you: Temperature Pulse Respiration Blood pressure 98.4 degrees 80/minute 16/minute 150/88 Weight 78.9 kgM Kelvin Bro PA-C 07/18/2017 3:19 PM SignedKeep appointments with pain management and physical therapy.Kayla Bro PA-C 07/18/2017 4:18 PM Oyxtlf89 year old female with c/o here for follow-up1. Chronic pain/fibromyalgia/ elevated LINDSAY: Patient has had improvement withgabapentin, currently taking twice a day 300 mg. States it lasts for about 3hours and then pain returns. She came to the wrong building for physicaltherapy and then was late. This was not rescheduled. Patient has major issueswith communication. We addressed her need to have a cost report clerk even whenscheduling appointments. She is complaining of pain bilateral neck andshoulders today as well as bilateral hips. She is scheduled on 07/27/[address] Marc Chavez for pain management. She has not completed xrays of neck, back orhips. With positive LINDSAY difficult to assess what is possibly autoimmune vs.Possible cervical or lumbar dis disease, arthritis in hips. May need scans. Roe reach out to Dr. Arango as to whether or not it would be appropriate to addand further testing or start medications.2. Cold symptoms from last visit resolved pretty much yesterday. She gotsteadily better without fever. No persistent cough or drainage.3. Rash abdomen: ANDquot;no changeANDquot; though acknowledge not burning orhurting now.HISTORIESFAMILY HISTORYProblem Relation Age of Onset- Cancer Mother uterine- Diabetes Father- Other [OTHER] Father of sepsis due to liver failure- Hypertension Sister- Diabetes Sister- Hypertension Brother- Diabetes BrotherPAST MEDICAL HISTORYDiagnosis Date- Chronic back pain- Chronic neck pain- Elevated glucose 07/2016- HTN (hypertension) 2013PAST SURGICAL HISTORYProcedure Laterality Date- SECTION HX 3 times- HYSTERECTOMY 2007Social History Marital status: Single Spouse name: Years of education: Number of children:Social History Main Topics Smoking status: Former Smoker Packs/day: 0.00 Years: 0.00 Smokeless status: Never Used Alcohol use: No Sexual activity: NoACTIVE PROBLEM LISTAna PositivePolyarthralgiaControlled Type 2 Diabetes Mellitus Without Complication (Hcc)Neck PainLumbar PainHyperlipidemia, MixedFibromyalgiaCurrent Outpatient Prescriptions:atorvastatin (LIPITOR) 10 mg tablet Take 1 tablet by mouth daily at bedtime.For cholesterol. Disp: 30 tablet Rfl: 5clotrimazole- betamethasone (LOTRISONE) cream Apply 1 application to affectedarea twice daily. UNTIL CLEAR FOR UP TO 2- 3 WEEKS Disp: 15 g Rfl: 1gabapentin (NEURONTIN) 300 mg capsule Start with one tab daily x 5 days HS, iftolerated increase to BID x 5 days and then to TID if tolerated Disp: 90capsule Rfl: 2glipiZIDE ( GLUCOTROL) 5 mg tablet Take 5 mg by mouth once daily. Disp: Rfl:losartan (COZAAR) 25 mg tablet Take 25 mg by mouth once daily. Disp: Rfl:blood sugar diagnostic (BLOOD GLUCOSE TEST) test strip Test blood sugar(s) 1times daily. Dx: Type 2 DM - Controlled E11.9 Insulin: No Disp: 50 Strip Rfl:5Lancets lancets Test blood sugar(s) 1 times daily. Dx: Type 2 DM - KxkayvpjgvB34.9 Insulin: No Disp: 100 Each Rfl : 3Blood-Glucose Meter monitoring kit Glucose Meter of Choice - Kit - Dx: OtherDM Code hyperglycemia Disp: 1 Each Rfl: 0No current facility-administered medications for this visit.DILATED RETINAL EXAM due on 1960URINE ALBUMIN CREATININE RATIO due on 1975DIABETIC FOOT EXAM due on 1975ONE PNEUMOVAX PRIOR TO AGE 64 due on 1975PAP EVERY 5 YEARS due on 1989HPV EVERY 5 YEARS due on 1989MAMMOGRAM due on 1999COLORECTAL CANCER SCREENING,SEE MODIFIER due on 2009EXAM:BP 150/88 Pulse 80 Temp 36.9 ?C (98.4 ?F) (Tympanic) Resp 16 Wt 78.9 kg( 174 lb) BMI 31.83 kg/l3Yyxsvzbj overeweight adult woman in no acute distress. Alert and oriented allspheres. Normal affect and cognition. Speech normal. No deficits to learning orcomprehension.Skin warm, dry, pink to lips and nailbeds. Normal turgor. Continues withhyperpigmented discoid patch on abdomen. Looks about the same, brownish withrounded borders, slightly raised. No erythema or tenderness.Respirations regular and unlabored.HEENT WNL. TM's clear. Nose and oropharynx free from injection or lesion. Nocervical lymph nodes. Thyroid non-tender, no masses. Tender bilaterally neckmuscles with trigger points. ROM is normal but c/o pain.Chest CTA. HRRR without murmur or gallop.Abdomen: active bowel sounds throughout, soft, nontender, no masses ororganomegaly. No CVAT.Extrem: no clubbing, cyanosis, edema. Extremities are warm and pink with promptcapillary refill. Tender bilateral hips, greater trochanters and muscular areasmedial gluteus. ROM with flexion to 120 degrees bilaterally. Restrictedinternal ROM bilateral with pain. Full external rotation.OMT: myofascial release to trigger points bilateral neck with improvement.ASSESSMENT/PLAN:1. Visit for screening mammogram - ICD9: V76.12, ICD10: Z12.31 (primarydiagnosis)- Encouraged monthly BSE- Follow up for annual exam in one year.- JOSE MARIA SCREENING2. Controlled type 2 diabetes mellitus without complication, unspecified nursing home insulin use status (HCC) - ICD9: 250.00, ICD10: E11.9Controlled.- Continue current medications3. Fibromyalgia - ICD9: 729.1, ICD10: M79.7Improving with gabapentin. increase to TID and report progress in 2 weeks.4. LINDSAY positive - ICD9: 795.79, ICD10: R76.8Has possible discoid plaque on abdomen. May need bx. Complete lupus work up.- LUPUS ANTICOAG PL- PROTEIN CREATININE RATIO - COMPLMNT DEF ASSAY5. Neck pain - ICD9: 723.1, ICD10: M54.2Outstanding XR6. Lumbar pain - ICD9: 724.2 , ICD10: M54.5Outstanding XR7. Bilateral hip pain - ICD9: 719.45, ICD10: M25.551, M25.552Outstanding XR8. Language barrier to communication - ICD9: V49.89, ICD10: Z78.9Many missed appointments, xrays. Complications with communication even withinterpreter. Went over instructions twice with teach back.F/u 2 months.35 minute visit with PAZ Hickey- CReferring Provider: Kayla BRO (JOSE ANGELC) [[id number]]Allergies As of Date: 07/18/2017 Noted Allergy ReactionASPIRIN 05/25/2017 10 - AnaphylaxisIBUPROFEN 05/25/2017 10 - AnaphylaxisDate Reviewed: 07/18/2017Reviewed by: Mariluz Neville FLOOR TRADER - Fully AssessedReason for Visit: 3 week follow up [Other] Cmt: of Fibromyalgia pain and gabapentin Pain [78] Cmt: in bilateral elbow, left shoulder and left hip. Has trouble sleeping d/t pain Diarrhea [35] Cmt: loose stools x 4 episodes in last 24 hours abdominal pain with some blood when wiping. 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 ( HCC) [E11.9] Fibromyalgia [M79.7] LINDSAY positive [R76.8] Neck pain [M54.2] Lumbar pain [M54.5] Bilateral hip pain [M25.551, M25.552] Language barrier to communication [ Z78.9]Order(s):JOSE MARIA SCREENING [[id number]] Order #: [id number] FUTURE LUPUS ANTICOAG PL [ SQLUPUSP] Order #: [id number] FUTURE PROTEIN CREATININE RATIO [SQPRATIO] Order #: [id number] FUTURE COMPLMNT DEF ASSAY [SQCOMPDF] Order #: [id number] FUTUREPrescriptions as of Sig: ATORVASTATIN 10 MG TABLET Take 1 tablet by mouth daily * CLOTRIMAZOLE- BETAMETHASONE 1 * Apply 1 application to affect* GABAPENTIN 300 MG CAPSULE Start with one tab daily x 5 * GLIPIZIDE 5 MG TABLET Take 5 mg by mouth once daily. LOSARTAN 25 MG TABLET Take 25 mg by mouth once tila* BLOOD SUGAR DIAGNOSTIC STRIPS Test blood sugar(s ) 1 times d* LANCETS Test blood sugar(s) 1 times d* BLOOD-GLUCOSE METER KIT Glucose Meter of Choice - Kit*Problem List As Of Date 07/18/2017 Noted Resolved LINDSAY positive [R76.8] INVALID FOR* More... Polyarthralgia [M25.50] INVALID FOR* Controlled type 2 diabetes mellitus without com* INVALID FOR* Neck pain [M54.2] INVALID FOR* Lumbar pain [M54.5] INVALID FOR* Hyperlipidemia, mixed [E78.2] INVALID FOR* Fibromyalgia [M79.7] INVALID FOR* Other instructions from your clinician: Keep appointments with pain management and physical therapy.Medications Discontinued During This Encounter predniSONE (DELTASONE) 10 mg tablet 30 t* 0 05/28/2017 07/18/2017 Class: Call Rx Sig: TAKE BY MOUTH (4) TABS FOR (3) DAYS THEN (3) TABS FOR (3) DAYS THEN (2) TABS FOR (3) DAYS THEN (1) TAB FOR (3) DAYS Disc: Reason for discontinue is not on file.Disposition: Return in about 8 weeks (around 09/12/2017).Follow-up and Disposition History RecordedLetter Text.THE [facility]ARDING HOSPITALAUTHORIZATION FOR THE RELEASE OF MEDICAL INFORMATIONFROM OTHER HEALTHCARE FACILITIESHolzer Medical Center – [facility]oster Phone: [phone] [place] [phone]: Reilly Alves Date ofBirth: [facility] [address] (home)Reason for Disclosure: Continuity of Care.Release Information From: Name of Provider/Facility: [facility] Street: City: State: Zip: Fax: Phone: Release Information To: Office Receiving: Kayla Bro PA-C PLEASE FAX TO: [phone] hereby authorize to release the healthinformation indicated below that is contained in my patient records to theRecipient named above. I understand and acknowledge that this may includetreatment for physical and mental illness, alcohol/drug abuse and or HIV /AIDStest results or diagnosis. This authorization does not include permission torelease outpatient Psychotherapy Notes* as defined below. The release ofPsychotherapy Notes requires a separate authorization.REPORTS REQUESTED: ===Diabetes Reports: Last Eye Exam ======This consent is subject to revocation at any time except to the extent theaction has been taken thereon. This authorization and consent will inone year from the date of authorization written below.Your health care (or payment for care) will not be affected by whether or notyou sign this authorization. Once your health care information is released,re-disclosure of your health care information by the Recipient my no longerbe protected by law. Signature of Patient/Legal Guardian Printed NameDate Signed: ____/ / Relationship if not PatientIf other than patient?s signature, a copy of the legal papers verifyingauthority (e.g. Power of Wash Test Checker or Certificate) MUST accompany theauthorization when presented. Exception: parent if signing for patientunder age 18.*Psychotherapy Notes defined as notes that document private, joint, group orfamily counseling sessions that are from the rest of a patient?smedical record. Status:Closed by Kayla BRO PA-C on 07/18/17 PROGRESS Observed: 07/06/2017 Status: COMPLETED Source: [place] 11:50 AM [facility] REPOSITORY O ID: [id number]: Kayla Arthur (Keren) DagoonService: (none)Author Type: Physician AssistantType: Progress NotesFiled: 07/06/2017 8: 36 PMNote Text:56 year old female with c/o feeling alright. Here for follow up.communicating through cost report clerk.1. Pain in belly. Ulcer there on skin. Hurts where she had c-sections(x3). Pain in skin. [place] coming [place]. Sometimesgets black, itchy, heals and gets black again.2. Cold sx over 3 days with nasal congestion and cough, no fever.Robitussin, Tylenol. Has headache.3. Taking medication as directed consistently? YesMedical Issues / Complications: hypertension and hyperlipidemiaChecking blood sugars at home? NoWatching diet? YesPhysical Activity: SedentaryHypoglycemic spells? NoAny visual disturbance? NoChest pain ? NoNew numbness, tingling or loss of sensation? NoAny recent foot problems, sores or rashes? NoAny recent or sudden weight loss? NoAny recent illness? EbHMO4O:Hemoglobin A1C (%)Date Value05/25/2017 6.8 )CMP:Glucose 136 05/25/2017BUN 13 05/25/2017Creatinine 0.79 05/25/2017Sodium 140 05/25/2017Potassium 3.5 05/25/2017Chloride 102 05/25/2017CO2 26 05/25/2017Protein, Total 7.5 05/25/2017Albumin 4.2 05/25/2017Calcium 9.3 05/25/2017Alkaline Phosphatase 74 05/25/2017Bilirubin, Total <0.2 05/25/2017AST 26 05/25/2017ALT 24 05/25/2017Last 2 Encounter Wt Readings: Date: Wt: 05/25/2017 81.2 kg (179 lb)4. POSITIVE LINDSAY/ CHRONIC: consult pending with rheumatology in September.Completed prednisone taper: no change in pain. Thought medication was forblood.5. CHRONIC PAIN: Continues with pain: back, arms, elbows, shoulders, neck,legs, thighs, hips, waist wrists, hands, head constant, causing difficultyto breathe. Worse in hips currently. Arthritis pain reliever. Bobbi has had x-rays and scans in [place]. Does not believe they areobtainable. Claims that she has degenerative disks and pinched nerves inher low back and sciatica.6. Reviewed lab work with uncontrolled hyperlipidemia.HISTORIESFAMILY HISTORYProblem Relation Age of Onset- Cancer Mother uterine- Diabetes Father- Other [OTHER] Father of sepsis due to liver failure- Hypertension Sister- Diabetes Sister- Hypertension Brother- Diabetes BrotherPAST MEDICAL HISTORYDiagnosis Date- Chronic back pain- Chronic neck pain- Elevated glucose 07/2016- HTN (hypertension) 2012PA SURGICAL HISTORYProcedure Laterality Date- SECTION HX 3 times- HYSTERECTOMY 2007Social History Marital status: Single Spouse name: Years of education: Number of children:Social History Main Topics Smoking status: Former Smoker Packs/ day: 0.00 Years: 0.00 Alcohol use: No Sexual activity: NoACTIVE PROBLEM LISTAna PositiveCurrent Outpatient Prescriptions:blood sugar diagnostic (BLOOD GLUCOSE TEST) test strip Test blood sugar(s)1 times daily. Dx: Type 2 DM - Controlled E11.9 Insulin: No Disp: 50Strip Rfl: 5Lancets lancets Test blood sugar(s) 1 times daily. Dx: Type 2 DM -Controlled E11.9 Insulin: No Disp: 100 Each Rfl: 3Blood- Glucose Meter monitoring kit Glucose Meter of Choice - Kit - Dx:Other DM Code hyperglycemia Disp: 1 Each Rfl: 0predniSONE (DELTASONE) 10 mg tablet TAKE BY MOUTH (4) TABS FOR (3) DAYSTHEN (3) TABS FOR (3) DAYS THEN (2) TABS FOR (3) DAYS THEN (1) TAB FOR (3) DAYS Disp: 30 tablet Rfl: 0glipiZIDE (GLUCOTROL) 5 mg tablet Take 5 mg by mouth once daily. Disp:Rfl:losartan (COZAAR) 25 mg tablet Take 25 mg by mouth once daily. Disp: Rfl:No current facility-administered medications for this visit.PAP EVERY 5 YEARS due on 1989HPV EVERY 5 YEARS due on 1989MAMMOGRAM due on 1999COLORECTAL CANCER SCREENING,SEE MODIFIER due on 2009EXAM:BP 130/82 (BP Site: Right Arm, BP Position: Sitting, BP Cuff Size: RegularAdult) Pulse 60 Resp 18Pleasant adult woman in no acute distress. Alert and oriented all spheres.Normal affect and cognition. Speech normal. No deficits to learning orcomprehension.Skin warm, dry, pink to lips and nailbeds. Normal turgor.Respirations regular and unlabored.HEENT WNL. TM's clear. Nose and oropharynx free from injection or lesion.No cervical lymph nodes. Thyroid non-tender, no massesChest CTA. HRRR without murmur or gallop.Extrem: no clubbing, cyanosis, edema. Extremities are warm and pink withprompt capillary refill. No change from prior exam. Multiple tendertrigger points. Patient withdraws even with light touch over her back.ASSESSMENT/PLAN:1. Polyarthralgia - ICD9: 719.49, ICD10: M25.50 (primary diagnosis)- CONSULT TO PAIN MGT ANESTHESIA2. LINDSAY positive - ICD9: 795.79, ICD10: R76.8Patient has appointment scheduled in September with rheumatology consult3. Acute upper respiratory infection - ICD9: 465.9, ICD10: J06.9- Discussed viral etiology and rationale for treatment.- Symptomatic treatment with prn analgesia- Supportive care with fluids and rest4. Controlled type 2 diabetes mellitus without complication, unspecifiedlong term insulin use status (HCC) - ICD9: 250.00, ICD10: E11.9Controlled.- Continue current medications- Unable to add aspirin to therapy due to allergy5. Neck pain - ICD9: 723.1, ICD10: M54.2- CONSULT TO PAIN MGT ANESTHESIA- GABAPENTIN 300 MG CAPSULE- XR CERV INJURY 3V AP/LAT/ODON6. Lumbar pain - ICD9: 724.2, ICD10: M54.5Symptoms consistent with herniated disc- Ice for localized tenderness- PT consult- CONSULT TO PAIN MGT ANESTHESIA- GABAPENTIN 300 MG CAPSULE- XR LUMBAR GENERAL 3V AP/LAT/L5-S17. Screening for breast cancer - ICD9: V76.10, ICD10: Z12.31- Encouraged monthly BSE- Follow up for annual exam in one year.- JOSE MARIA SCREENING8. Encounter for screening fecal occult blood testing - ICD9: V76.51,ICD10: Z12.11- FECAL OCCULT BLOOD TEST9. Hyperlipidemia, mixed - ICD9: 272.2, ICD10: E78.2- poor control- Begin treatment with atorvastatin (Lipitor) 10 mg- ATORVASTATIN 10 MG TABLET- CK CREATINE KINASE- HEPATIC FUNCTION PNL10. Rash - ICD9: 782.1, ICD10: R21- CLOTRIMAZOLE-BETAMETHASONE 1 %-0.05 % TOPICAL CREAM11. Fibromyalgia - ICD9: 729.1, ICD10: M79.7Started 300 mg at night and titrate every 5 days up to 300 mg 3 times adayGABAPENTIN 300 MG CAPSULE follow-up in 2 weeks to assess again with cost report clerk. 60 minute visitdue to complications with communication.KEREN Pena Observed: 07/06/2017 Status: COMPLETED Source: [place] 11:00 AM [facility] REPOSITORY Office Visit (FAMPWS) ---------REILLY ALVES ([id number]) 1960 [place] Time Provider Department07/06/17 11:00 AM Kayla BRO (KEREN) ELIZABETHPMARIAM During your visit today, we recorded the following information about you: Pulse Respiration Blood pressure 60/minute 18/minute 130/82M Kelvin Bro PA-C 2017 8:36 PM Qholza86 year old female with c/o feeling ANDquot;alrightANDquot;. Here for follow up.communicating through cost report clerk.1. Pain in belly. ANDquot;UlcerANDquot; there on skin. Hurts where she hadc-sections (x3). Pain in skin. Started [place] coming [place].Sometimes gets black, itchy, heals and gets black again.2. Cold sx over 3 days with nasal congestion and cough, no fever. Robitussin,Tylenol. Has headache.3. Taking medication as directed consistently? YesMedical Issues / Complications: hypertension and hyperlipidemiaChecking blood sugars at home? NoWatching diet? YesPhysical Activity: SedentaryHypoglycemic spells? NoAny visual disturbance? NoChest pain? NoNew numbness, tingling or loss of sensation? NoAny recent foot problems, sores or rashes? NoAny recent or sudden weight loss? NoAny recent illness? VmBVE2E:Hemoglobin A1C (%)Date Value05/25/2017 6.8 ) CMP:Glucose 136 05/25/2017BUN 13 05/25Creatinine 0.79 05/25/2017Sodium 140 Potassium 3.5 05/25/2017Chloride 102 05/25/2017CO2 26 05/25/2017Protein, Total 7.5 05/25/2017Albumin 4.2 05/25/2017Calcium 9.3 05/25/2017Alkaline Phosphatase 74 05/25/2017Bilirubin, Total ANDlt;0.2 05/25/2017AST 26 05/25/2017ALT 24 05/25/2017Last 2 Encounter Wt Readings: Date: Wt: 81.2 kg (179 lb)4. POSITIVE LINDSAY/ CHRONIC: consult pending with rheumatology in September. Completedprednisone taper: no change in pain. Thought medication was forANDquot;bloodANDquot;.5. CHRONIC PAIN : Continues with pain: back, arms, elbows, shoulders, neck,legs, thighs, hips, waist wrists, hands, head constant, causing difficulty tobreathe. Worse in hips currently. Arthritis pain reliever. Identifies she hashad [place]-rays and scans in [place]. Does not believe they are obtainable.Claims that she has degenerative disks and pinched nerves in her low back andsciatica.6. Reviewed lab work with uncontrolled hyperlipidemia.HISTORIESFAMILY HISTORYProblem Relation Age of Onset- Cancer Mother uterine- Diabetes Father- Other [OTHER] Father of sepsis due to liver failure- Hypertension Sister- Diabetes Sister- Hypertension Brother- Diabetes BrotherPAST MEDICAL HISTORYDiagnosis Date- Chronic back pain- Chronic neck pain- Elevated glucose 07/2016- HTN (hypertension) 2012PAST SURGICAL HISTORYProcedure Laterality Date- SECTION HX 3 times- HYSTERECTOMY 2007Social History Marital status: Single Spouse name: Years of education: Number of children:Social History Main Topics Smoking status: Former Smoker Packs/day: 0.00 Years: 0.00 Alcohol use: No Sexual activity: NoACTIVE PROBLEM LISTAna PositiveCurrent Outpatient Prescriptions: blood sugar diagnostic (BLOOD GLUCOSE TEST) test strip Test blood sugar(s) 1times daily. Dx: Type 2 DM - Controlled E11.9 Insulin: No Disp: 50 Strip Rfl:5Lancets lancets Test blood sugar(s) 1 times daily. Dx: Type 2 DM - RllmcwfygdX42.9 Insulin: No Disp: 100 Each Rfl: 3Blood-Glucose Meter monitoring kit Glucose Meter of Choice - Kit - Dx: OtherDM Code hyperglycemia Disp: 1 Each Rfl: 0predniSONE ( DELTASONE) 10 mg tablet TAKE BY MOUTH (4) TABS FOR (3) DAYS THEN(3) TABS FOR (3) DAYS THEN (2) TABS FOR (3) DAYS THEN (1) TAB FOR (3) DAYSDisp: 30 tablet Rfl: 0glipiZIDE (GLUCOTROL) 5 mg tablet Take 5 mg by mouth once daily. Disp: Rfl:losartan (COZAAR) 25 mg tablet Take 25 mg by mouth once daily. Disp : Rfl:No current facility-administered medications for this visit.PAP EVERY 5 YEARS due on 07/31HPV EVERY 5 YEARS due on 1989MAMMOGRAM due on 1999COLORECTAL CANCER SCREENING,SEE MODIFIER due on 2009EXAM:BP 130/82 (BP Site: Right Arm, BP Position: Sitting, BP Cuff Size: RegularAdult) Pulse 60 Resp 18Pleasant adult woman in no acute distress. Alert and oriented all spheres.Normal affect and cognition. Speech normal. No deficits to learning orcomprehension.Skin warm, dry, pink to lips and nailbeds. Normal turgor.Respirations regular and unlabored.HEENT WNL. TM's clear. Nose and oropharynx free from injection or lesion. Nocervical lymph nodes. Thyroid non- tender, no massesChest CTA. HRRR without murmur or gallop.Extrem: no clubbing, cyanosis, edema. Extremities are warm and pink with promptcapillary refill. No change from prior exam. Multiple tender trigger points.Patient withdraws even with light touch over her back.ASSESSMENT/PLAN:1. Polyarthralgia - ICD9: 719.49, ICD10: M25.50 (primary diagnosis)- CONSULT TO PAIN MGT ANESTHESIA2. LINDSAY positive - ICD9: 795.79, ICD10: R76.8Patient has appointment scheduled in September with rheumatology consult3. Acute upper respiratory infection - ICD9: 465.9, ICD10: J06.9- Discussed viral etiology and rationale for treatment.- Symptomatic treatment with prn analgesia- Supportive care with fluids and rest4. Controlled type 2 diabetes mellitus without complication, unspecified nursing home insulin use status (HCC) - ICD9: 250.00, ICD10: E11.9Controlled.- Continue current medications- Unable to add aspirin to therapy due to allergy5. Neck pain - ICD9: 723.1, ICD10: M54.2- CONSULT TO PAIN MGT ANESTHESIA- GABAPENTIN 300 MG CAPSULE- XR CERV INJURY 3V AP/LAT/ODON6. Lumbar pain - ICD9: 724.2, ICD10: M54.5Symptoms consistent with herniated disc- Ice for localized tenderness- PT consult- CONSULT TO PAIN MGT ANESTHESIA- GABAPENTIN 300 MG CAPSULE- XR LUMBAR GENERAL 3V AP/LAT/L5-S17. Screening for breast cancer - ICD9: V76.10, ICD10: Z12.31- Encouraged monthly BSE- Follow up for annual exam in one year.- JOSE MARIA SCREENING8. Encounter for screening fecal occult blood testing - ICD9: V76.51, ICD10:Z12.11- FECAL OCCULT BLOOD TEST9. Hyperlipidemia, mixed - ICD9: 272.2, ICD10: E78.2- poor control- Begin treatment with atorvastatin (Lipitor) 10 mg- ATORVASTATIN 10 MG TABLET- CK CREATINE KINASE- HEPATIC FUNCTION PNL10. Rash - ICD9: 782.1, ICD10: R21- CLOTRIMAZOLE-BETAMETHASONE 1 %-0.05 % TOPICAL CREAM11. Fibromyalgia - ICD9: 729.1, ICD10: M79.7Started 300 mg at night and titrate every 5 days up to 300 mg 3 times a dayGABAPENTIN 300 MG CAPSULE follow-up in 2 weeks to assess again with cost report clerk. 60 minute visit due tocomplications with communication.M PAZ Sanderson-CM Kelvin Bro PA-C 07/06/2017 12:31 PM SignedGet plenty of rest.Force fluids daily with water and juices.Nasal saline spray may help to keep nose open and moist: 2-3 squirts each sideevery few hours. This also help to rinse out virus and bacteria causinginfection.Cool mist humidifier in room during sleep.May use OTC Tylenol or Ibuprofen as direct for discomfort.For sore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
[2018-03-18 12:58] VITALS: BP 170/90; PULSE 67; RESP 16; O2SAT 98
--- NOTE | 2018-03-18 12:59 | ED.RN ---
discharge instructions given, educated on home care for her dx. Family at bedside, both deny any questions or further needs. Pt denies the need for wheelchair at discharge. ambulated self out of ED.
== END 2018-03-18 13:00 | disposition home or self-care (01) ==
LOC: ED 12:45
PROVIDERS: Emergency Provider Emergency Medicine; Family Provider Physician Assistant; PCP Physician Assistant
DX: M54.5 Low back pain (principal); G89.29 Other chronic pain; E11.9 Type 2 diabetes mellitus without complications; I10 Essential (primary) hypertension; Z79.84 Long term (current) use of oral hypoglycemic drugs; Z79.899 Other long term (current) drug therapy
CPT/HCPCS: 96372; 99283

== ENCOUNTER 2018-05-11 07:25 | Observation (INO) | payer MEDICAID, SELFPAY ==
[2018-05-11 07:25] VITALS: PULSE 88; RESP 22; TEMP 36.1; O2SAT 100; BMI 31.8
--- NOTE | 2018-05-11 07:39 | RAD_ITS ---
STUDY: X-RAY - LEFT HIP REASON FOR EXAM: Female, 57 years old. Left hip pain following a fall. TECHNIQUE: 2 views of the hip. COMPARISON: None. FINDINGS: Normal femoral head, neck, intertrochanteric region and visualized proximal femur. Normal acetabulum. Normal hip joint. Normal visualized superior and inferior pubic rami and ischial tuberosities. Phleboliths are seen within the pelvis. RAD/HIP, UNI W/ Pelvis 2-3 Views IMPRESSION: Normal x-ray examination of the hip. Electronically Signed: Edgardo Christianson MD at 8:55 EST Tel [phone], Service support ,
[2018-05-11] MEDS: Ondansetron 4 MG/2 ML Vial IV (07:46)
[2018-05-11] MEDS: morphine 8 MG/ML Syringe IV ×2 (07:46→11:38)
[2018-05-11 07:47] VITALS: BP 131/78; PULSE 84; RESP 16; O2SAT 100
--- NOTE | 2018-05-11 07:47 | ED.DCSUM_ITS ---
- ER Visit Summary Date of Service: 05/11/18 Chief Complaint: [] Fall left hip pain History of Present Illness: The patient is a 57 F []'s woman brought in by family the indicates she basically was well and she simply fell on ice slipping causing her to have severe left hip pain she was unable to walk family brought her to the hospital per the wheelchair and then the family left there is no additional history from the family and the patient is simply complaining of left hip pain she has no other complaints Physical Examination: [] Her vital signs are being obtained she is complaining of severe left hip pain she cannot move the hip there is no obvious shortening or rotation has no trauma neck chest abdomen show no trauma the lungs sound clear the heart tones are normal abdomen soft nontender the left hip there is moderate pain to palpation of the hip any type of range of motion causes hip pain there is no pain with palpation of the thigh knee tib-fib ankle or foot she is able dorsi and plantarflex left the right lower extremities unremarkable the upper extremity unremarkable the T-spine is unremarkable, she has pain to the left lumbar spine neurologically she has difficulty moving the left leg because of pain she points right to the left hip she is able dorsi and plantarflex there is no obvious bony deformity and there is no pain to the left thigh knee tib- fib ankle or foot Discussed the case with her yqnhntgf-cz-zoc we did discuss the case via the [facility] ent television schedule coordinator with patient, the patient again confirms the above with television schedule coordinator she simply fell on the ice she landed down the stairs on her bottom she has pain to the left hip and the left lumbar back, she indicates that television schedule coordinator she intimately has pain to the left lower posterior chest wall, she denies head pain chest pain shortness of breath no upper extremity pain and most of her pain is restricted to the left hip region. Patient via television schedule coordinator indicates she has a history of arthritis disc disease in her neck, fibromyalgia, and other orthopedic conditions that cause pain that are nonspecific Test Results: [] Emergency Department Course and Treatment: [] IV fluid x-rays pain management, initial lumbar spine x-rays,plain x-ray hip showed nothing acute, she underwent left hip CT that was negative per radiology, she underwent abdominal CT chest x-ray, chest x-ray read as unremarkable, abdominal CT showed what appeared to be transverse spinous fractures L2-3 and [address] and chest x-ray are unremarkable Patient still complains of pain when she moves her hip to where she cannot walk the family does not feel he can manage her at home given all the above we will talk to the hospitalist and arrange for admission for further management Treatment Plan: [] Please note we are trying to obtain her med list from the local pharmacy it is not available as of yet Disposition: [] Admit intractable pain Impression: [] Fall with left hip injury, lumbar spine transverse process fractures of L2-3 and 4, intractable pain This note was generated with YEVVO dictation software. It may contain incorrect words, spelling, and punctuation that were not noted in review of the chart prior to signing ED Disposition - Plan for ED Patient: Chief Complaint: Fall Referrals: Care Physician,No Primary [Primary Care Provider] -
[2018-05-11 07:55] LABS: Absolute Lymphocyte Count 2.13 X10^3/ul (0.83-4.51); Absolute Neutrophil Count 3.8 X10^3/uL (2.0-7.7); Basophil# 0.02 X10^3/uL; Basophil% 0.3 % (0-1); Eosinophil# 0.16 X10^3/uL; Eosinophils% 2.5 % (0-5); Hematocrit 40.9 % (37-47); Hemoglobin 13.4 g/dl (12.0-15.0); Lymphocyte # 2.13 X10^3/ul (4.0); Lymphocyte % 33.2 % (19-41); Mean Corp Hgb Conc 32.8 g/gl (32-36); Mean Corpuscular Hgb 29.1 pg (27.0-32.0); Mean Corpuscular Volume 88.7 fL (81-99); Mean Platelet Vol. 10.5 fl (6.2-12.0); Monocyte# 0.34 X10^3/uL; Monocyte% 5.3 % (0-10); Neutrophil # 3.76 X10^3/uL (2.7-7.7); Neutrophil % 58.5 % (47-70); Platelet Count 293 K/mm3 (150-450); RBC Distribution Width CV 12.8 % (11.6-14.6); RBC Distribution Width SD 41.1 fl (35.1-43.9); Red Blood Count 4.61 M/mm3 (4.2-5.4); White Blood Count 6.4 K/mm3 (4.4-11.0)
[2018-05-11 07:57] LABS: POSITIVE COUNT NO; POSITIVE DIFFERENTIAL NO; POSITIVE MORPHOLOGY NO
[2018-05-11 07:58] LABS: Prothrombin Time (Protime)PT. 12.8 SECONDS (11.7-14.9)
--- NOTE | 2018-05-11 08:00 | RAD_ITS ---
STUDY: X-RAY - LUMBAR SPINE REASON FOR EXAM: Female, 57 years old. Back pain following a fall. TECHNIQUE: 3 view(s) of the lumbar spine were obtained. COMPARISON: None FINDINGS: Normal lumbar lordosis. There is no substantial scoliosis. There is a normal alignment of the vertebrae. There is mild degree of endplate spondylosis of the lumbar vertebrae. Mild degree at this space narrowing at the L3-L4 and L5-S1 levels. Phleboliths are seen within the pelvis. RAD/Lumbar Spine 2 or 3 Views IMPRESSION: Degenerative changes of the spine, as detailed above. Electronically Signed: Edgardo Christianson MD at 8:53 EST Tel [phone], Service support ,
[2018-05-11 08:03] LABS: Anion Gap 8 (5-15); BUN 13 mg/dL (7-18); BUN/Creat Ratio 15.2 RATIO (10-20); Chloride 107 mmol/L (98-107); Creatinine, Serum 0.86 mg/dL (0.55-1.02); EST Glomerular Filtration Rate 72 mL/min (>60); Est Glom Filt Rate - Afr Amer 87 mL/min (>60); Estimated Creatinine Clearance 56.39 ml/min; Glucose 132 mg/dL (74-106); Potassium 3.7 mmol/L (3.5-5.1); Sodium Level 142 mmol/L (136-145)
--- NOTE | 2018-05-11 09:02 | CT_ITS ---
STUDY: CT PELVIS WITHOUT CONTRAST REASON FOR EXAM: Female, 57 years old. Left hip pain following a fall. RADIATION DOSAGE (If Supplied By Facility): CTDIvol = ( 27.77 ) mGy, DLP = ( 964.15 ) mGycm TECHNIQUE: Transaxial imaging of the pelvis was performed without oral contrast, and without intravenous administration of contrast material. Individualized dose optimization techniques were used for this CT. COMPARISON: Comparison is made with prior radiograph of the left hip done earlier in the day. FINDINGS: Normal urinary bladder. Normal visualized small intestine. Normal visualized colon. There is no pelvic fluid. There is no pelvic mass lesion or lymphadenopathy. Normal visualized pelvic arteries. Normal abdominal wall. Normal osseous structures. Phleboliths are seen within the pelvis. CT/Pelvis without IV Contrast IMPRESSION: No acute abnormality is seen. Electronically Signed: Edgardo Christianson MD at 10:32 EST Tel [phone], Service support ,
[2018-05-11 09:55] VITALS: BP 124/75; PULSE 68; RESP 14; O2SAT 99
--- NOTE | 2018-05-11 10:57 | CT_ITS ---
STUDY: CT ABDOMEN WITHOUT CONTRAST REASON FOR EXAM: Female, 57 years old. Left-sided pain following a fall. RADIATION DOSAGE (If Supplied By Facility): CTDIvol = ( 8.84 ) mGy, DLP = ( 344.34 ) mGycm TECHNIQUE: Transaxial images were obtained without intravenous contrast, and oral contrast. Sagittal and coronal images were reconstructed. Individualized dose optimization techniques were used for this CT. COMPARISON: Comparison is made with prior study done earlier in the day. FINDINGS: Mild degree of increased linear markings with areas of confluence in both lower lobes suggestive of a atelectasis and/or scarring. There The visualized portions of the heart are within normal limits. Normal liver. Mild increased densities along the dependent portion of the gallbladder. This may represent sludge or tiny gallstones. Normal spleen. Normal pancreas. Normal bilateral adrenal glands. Normal right kidney. Normal left kidney. There is a small hiatal hernia. Normal small intestine. Normal colon. The appendix is visualized and appears normal. Normal abdominal aorta. Normal inferior vena cava. Normal retroperitoneum. There is a small umbilical hernia containing fat. There is evidence of a nondisplaced fracture involving the transverse process of the L2, L3 and L4 vertebra on the left side. CT/Abdomen without IV Contrast IMPRESSION: Nondisplaced transverse fractures involving the transverse processes of the left L2, L3 and L4 lumbar vertebrae. Increased markings at the lung bases suggestive of linear bibasilar atelectasis. Electronically Signed: Edgardo Christianson MD at 11:38 EST Tel [phone], Service support ,
--- NOTE | 2018-05-11 11:25 | RAD_ITS ---
STUDY: X-RAY CHEST REASON FOR EXAM: Female, 57 years old. Pain following a fall. TECHNIQUE: Single AP portable view of the chest. COMPARISON: None. FINDINGS: The lungs are clear and expanded. There is no demonstrated pleural abnormality. Normal size heart. Normal mediastinum and diana. Normal visualized pulmonary arteries. There is atherosclerotic tortuosity of the aortic arch and descending thoracic aorta. There are diffuse degenerative changes of the visualized thoracic spine. Focal calcification is seen overlying the greater tuberosity of the right humerus suggestive of a right calcific tendinitis. There is no demonstrated abnormality of the visualized soft tissue structures of the upper abdomen. RAD/Chest 1 View IMPRESSION: No acute abnormality is seen. Findings suggestive of a right sided calcific tendinitis. Electronically Signed: Edgardo Christianson MD at 11:32 EST Tel [phone], Service support ,
--- NOTE | 2018-05-11 13:27 | PCM.HP.STD ---
Problem List (1) Fracture of transverse process of lumbar vertebra Status: Acute Qualifiers: Encounter type: initial encounter Fracture type: closed Qualified Code(s): S32.009A - Unspecified fracture of unspecified lumbar vertebra, initial encounter for closed fracture History of Present Illness Date of Admission: 05/11/18 Chief Complaint: back and leg pain. The patient is a 57 year old F was on her way to work and then she fell on stairs landing on her buttocks. Patient also did hit her elbow. Patient had similar pain in her back and leg at that time. Given the severity of her pain, patient was sent to the emergency room. Through the imaging, patient was noted to have nondisplaced transverse fractures involving left L2, L3 and L4 vertebrae. Patient does complain of back pain as well as abdominal pain and pain in her left calf. Patient never had any pain like this before. 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 [] Past Medical History Medical History: Medical History (Last Updated 05/11/18 @ 13:31 by Luis Cain DO) Lupus L93.0 HTN (hypertension) I10 Allergies aspirin Allergy (Verified 05/11/18 07:28) Angioedema Home Medications: Ambulatory Orders Medication Instructions Recorded Acetaminophen [Tylenol] 650 mg PO TID #60 tablet 02/19/17 Cyclobenzaprine [Flexeril] 10 mg PO TID PRN #20 tablet 02/19/17 Lives: With Family Smoking Status: Never smoker Tobacco Use: Non-smoker Alcohol: None Drugs: None - *Family History Maternal History Items: - - no CAD Review of Systems Gastrointestinal: Reports: Abdominal Pain Musculoskeletal: Reports: Back Pain, Leg Pain - left Neurological: Reports: - - Paresthesias in left lower extremity Comment: A 10 point review of systems were negative except as mentioned in the history of present illness and the other review of systems. VTE Information - Inpt Only VTE Present on Admission: No VTE Pharm Prophylaxis ordered?: Yes Patient Problems: Active and Suspected Problems Fracture of transverse process of lumbar vertebra (Acute) - Physical Exam General: Alert, Cooperative, - - Uncomfortable. Afebrile. HEENT: Atraumatic, Normocephalic Oral: Moist Mucosa, No Gingival or Mucosal Lesions/ Ulcerations Neck: No Nodes, Thyroid Normal Size and Texture Lungs: Clear to auscultation, Normal air movement, No rhonchi, No wheeze Cardiovascular: Regular rate, Regular Rhythm, Normal S1, Normal S2, No murmurs Abdomen: Bowel Sounds Present, Soft, Non-Distended, No Hepato-splenomegaly, - - Left upper quadrant tenderness Extremities: No edema, - - Left calf tender to palpation Skin: No rashes, No breakdown Musculoskeletal: No Muscle Wasting, - - Patient with left calf pain. Limited movements in her left leg due to pain. Neurological: Sensory exam intact to light touch and pain, Coordination normal, - - Muscle strength is 5 out of 5 in the right lower extremity. Limited left lower extremity due to pain. Psych/Mental Status: Normal Affect, Appropriate Vital Signs Temp Pulse Resp BP Pulse Ox 36.1 C L 68 14 124/75 H 99 05/11/18 07:25 05/11/18 09:55 05/11/18 09:55 05/11/18 09:55 05/11/18 09:55 Oxygen Delivery Method Room Air Weight: 78.925 kg Body Mass Index (BMI) 31.8 Laboratory Tests Past 24 Hrs 05/11/18 05/11/18 05/11/18 07:40 07:40 07:40 WBC 6.4 RBC 4.61 Hgb 13.4 Hct 40.9 MCV 88.7 MCH 29.1 MCHC 32.8 RDW 12.8 RDW Differential 41.1 Plt Count 293 MPV 10.5 Immature Gran % (Auto) 0.200 Neut % (Auto) 58.5 Lymph % (Auto) 33.2 [place] % (Auto) 5.3 Eos % (Auto) 2.5 Baso % (Auto) 0.3 Absolute Neuts (auto) 3.8 Absolute Lymphs (auto) 2.13 Total Counted Not Reportable PT 12.8 INR 1.0 Sodium 142 Potassium 3.7 Chloride 107 Carbon Dioxide 27.0 Anion Gap 8 BUN 13 Creatinine 0.86 Estim Creat Clear Calc 56.39 Est GFR (MDRD) Af Amer 87 Est GFR (MDRD) Non-Af 72 BUN/Creatinine Ratio 15.2 Glucose 132 H Calcium 9.0 Clinical Impression(s) from Imaging Studies Hip/Pelvis X-Ray 05/11/18 07:39 IMPRESSION: Normal x-ray examination of the hip. Electronically Signed: Edgardo Christianson MD at 8:55 EST Tel [phone], Service support , Lumbar Spine X-Ray 05/11/18 08:00 IMPRESSION: Degenerative changes of the spine, as detailed above. Electronically Signed: Edgardo Christianson MD at 8:53 EST Tel [phone], Service support , Pelvis CT 05/11/18 09:02 IMPRESSION: No acute abnormality is seen. Electronically Signed: Edgardo Christianson MD at 10:32 EST Tel [phone], Service support , Abdomen CT 05/11/18 10:57 IMPRESSION: Nondisplaced transverse fractures involving the transverse processes of the left L2, L3 and L4 lumbar vertebrae. Increased markings at the lung bases suggestive of linear bibasilar atelectasis. Electronically Signed: Edgardo Christianson MD at 11:38 EST Tel [phone], Service support , Chest X-Ray 05/11/18 11:25 IMPRESSION: No acute abnormality is seen. Findings suggestive of a right sided calcific tendinitis. Electronically Signed: Edgardo Christianson MD at 11:32 EST Tel [phone], Service support , Assessment/Plan All Active Problems Fracture of transverse process of lumbar vertebra (Acute) 1. Left L2, L3 and L4 lumbar vertebrae transverse process fractures Patient had a CT the abdomen pelvis and but that this is incidental finding. Plan is for pain control with Toradol, oxycodone, Dilaudid and patient will be started on prednisone. Plan is for an MRI of her lumbar spine once her pain is better well controlled. 2. Hypertension Chronic and stable at this time 3. Lupus Does not appear that she is on any medication for that. Unclear of systemic or discoid Follow-up with the rheumatology as outpatient 4. DVT prophylaxis with Lovenox Case discussed with the patient's qskjthig-hb-css at bedside. Code Visit OBSV E&M: 43137 Initial observation care L3
--- NOTE | 2018-05-11 13:32 | HP.PCM_ITS ---
Problem List (1) Fracture of transverse process of lumbar vertebra Status: Acute Qualifiers: Encounter type: initial encounter Fracture type: closed Qualified Code(s): S32.009A - Unspecified fracture of unspecified lumbar vertebra, initial encounter for closed fracture History of Present Illness Date of Admission: 05/11/18 Chief Complaint: back and leg pain. The patient is a 57 year old F was on her way to work and then she fell on stairs landing on her buttocks. Patient also did hit her elbow. Patient had similar pain in her back and leg at that time. Given the severity of her pain, patient was sent to the emergency room. Through the imaging, patient was noted to have nondisplaced transverse fractures involving left L2, L3 and L4 vertebrae. Patient does complain of back pain as well as abdominal pain and pain in her left calf. Patient never had any pain like this before. 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 [] Past Medical History Medical History: Medical History (Last Updated 05/11/18 @ 13:31 by Luis Cain DO) Lupus L93.0 HTN (hypertension) I10 Allergies aspirin Allergy (Verified 05/11/18 07:28) Angioedema Home Medications: Ambulatory Orders Medication Instructions Recorded Acetaminophen [Tylenol] 650 mg PO TID #60 tablet 02/19/17 Cyclobenzaprine [Flexeril] 10 mg PO TID PRN #20 tablet 02/19/17 Lives: With Family Smoking Status: Never smoker Tobacco Use: Non-smoker Alcohol: None Drugs: None - *Family History Maternal History Items: - - no CAD Review of Systems Gastrointestinal: Reports: Abdominal Pain Musculoskeletal: Reports: Back Pain, Leg Pain - left Neurological: Reports: - - Paresthesias in left lower extremity Comment: A 10 point review of systems were negative except as mentioned in the history of present illness and the other review of systems. VTE Information - Inpt Only VTE Present on Admission: No VTE Pharm Prophylaxis ordered?: Yes Patient Problems: Active and Suspected Problems Fracture of transverse process of lumbar vertebra (Acute) - Physical Exam General: Alert, Cooperative, - - Uncomfortable. Afebrile. HEENT: Atraumatic, Normocephalic Oral: Moist Mucosa, No Gingival or Mucosal Lesions/ Ulcerations Neck: No Nodes, Thyroid Normal Size and Texture Lungs: Clear to auscultation, Normal air movement, No rhonchi, No wheeze Cardiovascular: Regular rate, Regular Rhythm, Normal S1, Normal S2, No murmurs Abdomen: Bowel Sounds Present, Soft, Non-Distended, No Hepato-splenomegaly, - - Left upper quadrant tenderness Extremities: No edema, - - Left calf tender to palpation Skin: No rashes, No breakdown Musculoskeletal: No Muscle Wasting, - - Patient with left calf pain. Limited movements in her left leg due to pain. Neurological: Sensory exam intact to light touch and pain, Coordination normal, - - Muscle strength is 5 out of 5 in the right lower extremity. Limited left lower extremity due to pain. Psych/Mental Status: Normal Affect, Appropriate Vital Signs Temp Pulse Resp BP Pulse Ox 36.1 C L 68 14 124/75 H 99 05/11/18 07:25 05/11/18 09:55 05/11/18 09:55 05/11/18 09:55 05/11/18 09:55 Oxygen Delivery Method Room Air Weight: 78.925 kg Body Mass Index (BMI) 31.8 Laboratory Tests Past 24 Hrs 05/11/18 05/11/18 05/11/18 07:40 07:40 07:40 WBC 6.4 RBC 4.61 Hgb 13.4 Hct 40.9 MCV 88.7 MCH 29.1 MCHC 32.8 RDW 12.8 RDW Differential 41.1 Plt Count 293 MPV 10.5 Immature Gran % (Auto) 0.200 Neut % (Auto) 58.5 Lymph % (Auto) 33.2 [place] % (Auto) 5.3 Eos % (Auto) 2.5 Baso % (Auto) 0.3 Absolute Neuts (auto) 3.8 Absolute Lymphs (auto) 2.13 Total Counted Not Reportable PT 12.8 INR 1.0 Sodium 142 Potassium 3.7 Chloride 107 Carbon Dioxide 27.0 Anion Gap 8 BUN 13 Creatinine 0.86 Estim Creat Clear Calc 56.39 Est GFR (MDRD) Af Amer 87 Est GFR (MDRD) Non-Af 72 BUN/Creatinine Ratio 15.2 Glucose 132 H Calcium 9.0 Clinical Impression(s) from Imaging Studies Hip/Pelvis X-Ray 05/11/18 07:39 IMPRESSION: Normal x-ray examination of the hip. Electronically Signed: Edgardo Christianson MD at 8:55 EST Tel [phone], Service support , Lumbar Spine X-Ray 05/11/18 08:00 IMPRESSION: Degenerative changes of the spine, as detailed above. Electronically Signed: Edgardo Christianson MD at 8:53 EST Tel [phone], Service support , Pelvis CT 05/11/18 09:02 IMPRESSION: No acute abnormality is seen. Electronically Signed: Edgardo Christianson MD at 10:32 EST Tel [phone], Service support , Abdomen CT 05/11/18 10:57 IMPRESSION: Nondisplaced transverse fractures involving the transverse processes of the left L2, L3 and L4 lumbar vertebrae. Increased markings at the lung bases suggestive of linear bibasilar atelectasis. Electronically Signed: Edgardo Christianson MD at 11:38 EST Tel [phone], Service support , Chest X-Ray 05/11/18 11:25 IMPRESSION: No acute abnormality is seen. Findings suggestive of a right sided calcific tendinitis. Electronically Signed: Edgardo Christianson MD at 11:32 EST Tel [phone], Service support , Assessment/Plan All Active Problems Fracture of transverse process of lumbar vertebra (Acute) 1. Left L2, L3 and L4 lumbar vertebrae transverse process fractures * Patient had a CT the abdomen pelvis and but that this is incidental finding. * Plan is for pain control with Toradol, oxycodone, Dilaudid and patient will be started on prednisone. * Plan is for an MRI of her lumbar spine once her pain is better well controlled. 2. Hypertension * Chronic and stable at this time 3. Lupus * Does not appear that she is on any medication for that. Unclear of systemic or discoid * Follow-up with the rheumatology as outpatient 4. DVT prophylaxis with Lovenox Case discussed with the patient's qiyqrncl-tt-szx at bedside. Code Visit OBSV E&M: 63253 Initial observation care L3
[2018-05-11 14:14] VITALS: BMI 30.2
--- NOTE | 2018-05-11 14:30 | MRI_ITS ---
STUDY: MRI LUMBAR SPINE WITHOUT CONTRAST REASON FOR EXAM: Female, 57 years old. Trauma TECHNIQUE: Standardized fat and water weighted pulse sequences were obtained in the sagittal and axial planes. COMPARISON: CT of the abdomen and pelvis on May 11, 2018 FINDINGS: T12-L1: Normal endplates. Normal disc height, hydration and morphology. Normal bilateral facet joints. Normal central canal and bilateral lateral recesses. Normal bilateral intervertebral neural foramina. Normal lumbar lordosis. There is no substantial scoliosis. Normal conus medullaris that terminates at T12-L1 L1-2: Normal endplates. Normal disc height, hydration and morphology. Normal bilateral facet joints. Normal central canal and bilateral lateral recesses. Normal bilateral intervertebral neural foramina. L2-3: Normal endplates. Normal disc height, hydration and morphology. Normal bilateral facet joints. Normal central canal and bilateral lateral recesses. Normal bilateral intervertebral neural foramina. L3-4: Degenerative endplate changes.. Normal disc height, desiccation and minimal annular bulge. Bilateral facet arthropathy.. Normal central canal. Moderate bilateral recess and neuroforaminal stenosis.. L4-5: Degenerative endplate changes.. Normal disc height, desiccation and mild annular bulge.. Bilateral facet arthropathy and thickening of ligamenta flava.. Mild narrowing of the central canal. Moderate to severe bilateral recess and neural foraminal stenosis L5-S1: Normal endplates. Normal disc height, disc space and mild annular bulge with large left paracentral/posterolateral disc extrusion with posterior migration of disc fragment.. Mild facet arthropathy.. Normal central canal. Mild right lateral recess and neural foraminal stenosis with severe narrowing on the left. Normal visualized sacral ala. Normal visualized paraspinous soft tissue structures. MRI/Spine Lumbar (Routine) IMPRESSION: Spinal stenosis at L3-4, L4-5 and most severe at L5-S1 on the left secondary to disc disease and bony hypertrophy. No evidence for acute fracture or subluxation. The transverse process fractures on CT are not clearly identified on the MRI exam Electronically Signed: Sp Shaw MD at 19:27 EST , Service support ,
[2018-05-11 14:45] VITALS: BP 106/63; PULSE 63; RESP 18; TEMP 36.7; O2SAT 98
[2018-05-11 15:22] VITALS: O2SAT 98
[2018-05-11] MEDS: predniSONE 20 MG Tablet 60 MG PO (16:28)
[2018-05-11] MEDS: HYDROmorphone 0.5 MG/0.5 ML SYRINGE IV ×2 (18:07→21:19)
[2018-05-11 21:07] VITALS: BP 154/68; PULSE 81; RESP 16; TEMP 36.8; O2SAT 100
[2018-05-11] MEDS: Atorvastatin Calcium 10 MG Tablet PO (21:20)
[2018-05-11] MEDS: 0.9% NaCl Peripheral Flush Adult/Peds IV (21:20)
[2018-05-11 22:25] LABS: Bedside Glucose 150 mg/dL (70-110)
[2018-05-11] MEDS: oxyCODONE 5 MG Tablet PO (23:51)
[2018-05-12] MEDS: 0.9% NaCl Peripheral Flush Adult/Peds IV (02:09)
[2018-05-12] MEDS: Ketorolac 15 MG/ML Vial IV (02:09)
[2018-05-12 03:20] VITALS: BP 125/72; PULSE 78; RESP 16; TEMP 36.4; O2SAT 99
[2018-05-12 06:48] VITALS: O2SAT 94
[2018-05-12 07:31] LABS: Bedside Glucose 105 mg/dL (70-110)
[2018-05-12] MEDS: Glucerna Shake 120 ML LIQUID PO ×2 (07:55→12:27)
[2018-05-12] MEDS: Baclofen 10 MG Tablet 20 MG PO (07:56)
[2018-05-12] MEDS: glipiZIDE 5 MG Tablet PO (07:57)
[2018-05-12] MEDS: Gabapentin 300 MG Capsule PO ×2 (07:57→12:27)
[2018-05-12] MEDS: predniSONE 20 MG Tablet 40 MG PO (08:02)
[2018-05-12 08:42] VITALS: BP 128/89; PULSE 78; RESP 14; TEMP 37; O2SAT 100
[2018-05-12 09:15] VITALS: O2SAT 100
[2018-05-12] MEDS: Enoxaparin 40 MG/0.4 ML Syringe SC (09:56)
[2018-05-12] MEDS: Losartan Potassium 25 MG Tablet PO (09:56)
[2018-05-12] MEDS: oxyCODONE 5 MG Tablet PO (09:57)
--- NOTE | 2018-05-12 10:04 | DCINST_ITS ---
- Discharge Diagnoses Current Active Problems: Current Active and Chronic Problems (Last Updated 05/11/18 @ 13:31 by Luis Cain DO) Fracture of transverse process of lumbar vertebra (Acute) You will use the following diet at home:: Calorie/Carbohydrate Controlled (specify 1200, 1400, etc) Your food should be the consistency of: Regular Discharge Activity: May not drive while taking narcotic pain medications. Return to work on:: 05/15/18 Call your doctor if you observe: - - recurrent falls. increased pain. Allergies/Adverse Reactions: Allergies aspirin Allergy (Verified 05/11/18 07:28) Angioedema Medications to take at Discharge Atorvastatin Calcium 10 mg PO QHS 05/11/18 Baclofen 20 mg PO DAILY 05/11/18 Gabapentin [Neurontin] 300 mg PO TID 05/11/18 Glipizide 5 mg PO DAILY 05/11/18 Losartan Potassium 25 mg PO DAILY 05/11/18 Acetaminophen 1,000 mg PO TID PRN #1 tablet 05/12/18 Cyclobenzaprine [Flexeril] 10 mg PO TID PRN #20 tablet 05/12/18 Ibuprofen 600 mg PO Q4H PRN #1 tablet 05/12/18 Oxycodone [Oxyir] 5 mg PO Q6H PRN 3 Days #12 tablet 05/12/18 The following prescriptions were given: Ibuprofen 600 mg PO Q4H PRN #1 tablet PRN Reason: Pain Oxycodone [Oxyir] 5 mg PO Q6H PRN 3 Days #12 tablet PRN Reason: Mod-Severe Pain (4-10/10) Acetaminophen 1,000 mg PO TID PRN #1 tablet PRN Reason: Pain Cyclobenzaprine [Flexeril] 10 mg PO TID PRN #20 tablet PRN Reason: Muscle Spasm Orders to be completed after discharge: Physical Therapy Evaluation Time Frame: 1 Week, Location: None Selected Primary Care Physician: Care Physician,No Primary [Primary Care Provider] - Within 2 Weeks Test Results: Test results from this visit will be discussed in further detail at your follow- up appointment, if applicable. Proposed Discharge Date: 05/12/18
--- NOTE | 2018-05-12 10:04 | PCM.DC.SUM ---
Discharge Date and Diagnosis - Problem List Patient Problems: Active and Suspected Problems (Last Updated 05/11/18 @ 13:31 by Luis Cain DO) Rib fracture (Suspected) Fracture of transverse process of lumbar vertebra (Acute) Date of Admission: 05/11/18 Date of Discharge: 05/12/18 - Primary Discharge Diagnosis Active and Suspected Problems (Last Updated 05/11/18 @ 13:31 by Luis Cain DO) Rib fracture (Suspected) Fracture of transverse process of lumbar vertebra (Acute) Hospital Course and Treatment Imaging Results: Clinical Impression(s) from Imaging Studies Hip/Pelvis X-Ray 05/11/18 07:39 IMPRESSION: Normal x-ray examination of the hip. Electronically Signed: Edgardo Christianson MD at 8:55 EST Tel [phone], Service support , Lumbar Spine X-Ray 05/11/18 08:00 IMPRESSION: Degenerative changes of the spine, as detailed above. Electronically Signed: Edgardo Christianson MD at 8:53 EST Tel [phone], Service support , Pelvis CT 05/11/18 09:02 IMPRESSION: No acute abnormality is seen. Electronically Signed: Edgardo Christianson MD at 10:32 EST Tel [phone], Service support , Abdomen CT 05/11/18 10:57 IMPRESSION: Nondisplaced transverse fractures involving the transverse processes of the left L2, L3 and L4 lumbar vertebrae. Increased markings at the lung bases suggestive of linear bibasilar atelectasis. Electronically Signed: Edgardo Christianson MD at 11:38 EST Tel [phone], Service support , Chest X-Ray 05/11/18 11:25 IMPRESSION: No acute abnormality is seen. Findings suggestive of a right sided calcific tendinitis. Electronically Signed: Edgardo Christianson MD at 11:32 EST Tel [phone], Service support , Lumbar Spine MRI 05/11/18 14:30 IMPRESSION: Spinal stenosis at L3-4, L4-5 and most severe at L5-S1 on the left secondary to disc disease and bony hypertrophy. No evidence for acute fracture or subluxation. The transverse process fractures on CT are not clearly identified on the MRI exam Electronically Signed: Sp Shaw MD at 19:27 EST , Service support , Operations: None Procedures: None Summary of Care Provided: The patient is a 57 year old F who fell down stairs. Patient was landing on her buttocks but also elbow. Did not hit her head. Patient had pain in her left side as well as in her low back and leg. Patient had a CAT scan of her abdomen pelvis did not show any intra-abdominal process but did show fractures of the left transverse processes of L2, L3 and L4. Patient was complaining of pain in her left calf. Patient did undergo an MRI of her lumbar spine that did not show the fractures of the transverse processes but otherwise looked okay. No vertebral fractures and no cord compression. Did show a herniated disc but no acute pathology associated with that. Patient was not reevaluated today and patient is much more comfortable today and is able to move her left lower extremity without difficulty. Patient was able to ambulate though still guarded with pain. Otherwise patient is doing well and will be discharged home. Patient was seen by physical therapist recommend outpatient physical therapy. History was limited as patient Libyan is first language and and will grasp of [place]. Communication was obtained through minimal Libyan but also using [employer] creative designer tool. [] Patient Problems: Active and Suspected Problems (Last Updated 05/11/18 @ 13:31 by Luis Cain DO) Rib fracture (Suspected) Fracture of transverse process of lumbar vertebra (Acute) - Physical Exam General: Alert, No apparent distress HEENT: Atraumatic, Normocephalic Musculoskeletal: - - lumbar paraspinal muscle tenderness Neurological: Motor Exam 5/5 strength throughout, Gait narrow based and stable Psych/Mental Status: Normal Affect, Appropriate Vital Signs Temp Pulse Resp BP Pulse Ox 37.0 C 78 14 128/89 H 100 05/12/18 08:42 05/12/18 08:42 05/12/18 08:42 05/12/18 08:42 05/12/18 09:15 Oxygen Flow Rate (L/min) 2 Oxygen Delivery Method Room Air Weight: 74.5 kg Body Mass Index (BMI) 30.2 Intake and Output for Last 24 Hours 05/10/18 05/11/18 05/12/18 23:59 23:59 23:59 Intake Total 600 / 600 220 / 220 Balance 600 / 600 220 / 220 POC Glucose 05/12/18 05/11/18 07:22 21:17 POC Glucose 105 150 H Discharge Diet: Low fat/ Low Cholesterol Discharge Activity: May not drive while taking narcotic pain medications. Return to work on:: 05/15/18 Call your doctor if you observe: - - recurrent falls. increased pain. Home Medications: Medications to take at Discharge Atorvastatin Calcium 10 mg PO QHS 05/11/18 Baclofen 20 mg PO DAILY 05/11/18 Gabapentin [Neurontin] 300 mg PO TID 05/11/18 Glipizide 5 mg PO DAILY 05/11/18 Losartan Potassium 25 mg PO DAILY 05/11/18 Acetaminophen 1,000 mg PO TID PRN #1 tablet 05/12/18 Cyclobenzaprine [Flexeril] 10 mg PO TID PRN #20 tablet 05/12/18 Ibuprofen 600 mg PO Q4H PRN #1 tablet 05/12/18 Oxycodone [Oxyir] 5 mg PO Q6H PRN 3 Days #12 tablet 05/12/18 Following Prescrptions Were Given to Patient: Ibuprofen 600 mg PO Q4H PRN #1 tablet PRN Reason: Pain Oxycodone [Oxyir] 5 mg PO Q6H PRN 3 Days #12 tablet PRN Reason: Mod-Severe Pain (4-10/10) Acetaminophen 1,000 mg PO TID PRN #1 tablet PRN Reason: Pain Cyclobenzaprine [Flexeril] 10 mg PO TID PRN #20 tablet PRN Reason: Muscle Spasm Other Amb Orders: Physical Therapy Evaluation Time Frame: 1 Week, Location: None Selected Primary Care Physician: Care Physician,No Primary [Primary Care Provider] - Within 2 Weeks Disposition: Home Minutes spent on discharge:: 34 Patient Condition:: Good Medical Necessity - Tobacco Use Smoking Status: Never smoker Tobacco Use: Non-smoker Meaningful Use Info Meaningful Use Diagnoses (Choose all that apply): None applicable Code Visit OBSV E&M: 73933 Observation care discharge
--- NOTE | 2018-05-12 10:08 | DS.PCM_ITS ---
Discharge Date and Diagnosis - Problem List Patient Problems: Active and Suspected Problems (Last Updated 05/11/18 @ 13:31 by Luis Cain DO) Rib fracture (Suspected) Fracture of transverse process of lumbar vertebra (Acute) Date of Admission: 05/11/18 Date of Discharge: 05/12/18 - Primary Discharge Diagnosis Active and Suspected Problems (Last Updated 05/11/18 @ 13:31 by Luis Cain DO) Rib fracture (Suspected) Fracture of transverse process of lumbar vertebra (Acute) Hospital Course and Treatment Imaging Results: Clinical Impression(s) from Imaging Studies Hip/Pelvis X-Ray 05/11/18 07:39 IMPRESSION: Normal x-ray examination of the hip. Electronically Signed: Edgardo Christianson MD at 8:55 EST Tel [phone], Service support , Lumbar Spine X-Ray 05/11/18 08:00 IMPRESSION: Degenerative changes of the spine, as detailed above. Electronically Signed: Edgardo Christianson MD at 8:53 EST Tel [phone], Service support , Pelvis CT 05/11/18 09:02 IMPRESSION: No acute abnormality is seen. Electronically Signed: Edgardo Christianson MD at 10:32 EST Tel [phone], Service support , Abdomen CT 05/11/18 10:57 IMPRESSION: Nondisplaced transverse fractures involving the transverse processes of the left L2, L3 and L4 lumbar vertebrae. Increased markings at the lung bases suggestive of linear bibasilar atelectasis. Electronically Signed: Edgardo Christianson MD at 11:38 EST Tel [phone], Service support , Chest X-Ray 05/11/18 11:25 IMPRESSION: No acute abnormality is seen. Findings suggestive of a right sided calcific tendinitis. Electronically Signed: Edgardo Christianson MD at 11:32 EST Tel [phone], Service support , Lumbar Spine MRI 05/11/18 14:30 IMPRESSION: Spinal stenosis at L3-4, L4-5 and most severe at L5-S1 on the left secondary to disc disease and bony hypertrophy. No evidence for acute fracture or subluxation. The transverse process fractures on CT are not clearly identified on the MRI exam Electronically Signed: pS Shaw MD at 19:27 EST , Service support , Operations: None Procedures: None Summary of Care Provided: The patient is a 57 year old F who fell down stairs. Patient was landing on her buttocks but also elbow. Did not hit her head. Patient had pain in her left side as well as in her low back and leg. Patient had a CAT scan of her abdomen pelvis did not show any intra-abdominal process but did show fractures of the left transverse processes of L2, L3 and L4. Patient was complaining of pain in her left calf. Patient did undergo an MRI of her lumbar spine that did not show the fractures of the transverse processes but otherwise looked okay. No vertebral fractures and no cord compression. Did show a herniated disc but no acute pathology associated with that. Patient was not reevaluated today and patient is much more comfortable today and is able to move her left lower extremity without difficulty. Patient was able to ambulate though still guarded with pain. Otherwise patient is doing well and will be discharged home. Patient was seen by physical therapist recommend outpatient physical therapy. History was limited as patient Haitian is first language and and will grasp of [place] Islander. Communication was obtained through minimal Haitian but also using [employer] hairspring truing tool. [] Patient Problems: Active and Suspected Problems (Last Updated 05/11/18 @ 13:31 by Luis Cain DO) Rib fracture (Suspected) Fracture of transverse process of lumbar vertebra (Acute) - Physical Exam General: Alert, No apparent distress HEENT: Atraumatic, Normocephalic Musculoskeletal: - - lumbar paraspinal muscle tenderness Neurological: Motor Exam 5/5 strength throughout, Gait narrow based and stable Psych/Mental Status: Normal Affect, Appropriate Vital Signs Temp Pulse Resp BP Pulse Ox 37.0 C 78 14 128/89 H 100 05/12/18 08:42 05/12/18 08:42 05/12/18 08:42 05/12/18 08:42 05/12/18 09:15 Oxygen Flow Rate (L/min) 2 Oxygen Delivery Method Room Air Weight: 74.5 kg Body Mass Index (BMI) 30.2 Intake and Output for Last 24 Hours 05/10/18 05/11/18 05/12/18 23:59 23:59 23:59 Intake Total 600 / 600 220 / 220 Balance 600 / 600 220 / 220 POC Glucose 05/12/18 05/11/18 07:22 21:17 POC Glucose 105 150 H Discharge Diet: Low fat/ Low Cholesterol Discharge Activity: May not drive while taking narcotic pain medications. Return to work on:: 05/15/18 Call your doctor if you observe: - - recurrent falls. increased pain. Home Medications: Medications to take at Discharge Atorvastatin Calcium 10 mg PO QHS 05/11/18 Baclofen 20 mg PO DAILY 05/11/18 Gabapentin [Neurontin] 300 mg PO TID 05/11/18 Glipizide 5 mg PO DAILY 05/11/18 Losartan Potassium 25 mg PO DAILY 05/11/18 Acetaminophen 1,000 mg PO TID PRN #1 tablet 05/12/18 Cyclobenzaprine [Flexeril] 10 mg PO TID PRN #20 tablet 05/12/18 Ibuprofen 600 mg PO Q4H PRN #1 tablet 05/12/18 Oxycodone [Oxyir] 5 mg PO Q6H PRN 3 Days #12 tablet 05/12/18 Following Prescrptions Were Given to Patient: Ibuprofen 600 mg PO Q4H PRN #1 tablet PRN Reason: Pain Oxycodone [Oxyir] 5 mg PO Q6H PRN 3 Days #12 tablet PRN Reason: Mod-Severe Pain (4-10/10) Acetaminophen 1,000 mg PO TID PRN #1 tablet PRN Reason: Pain Cyclobenzaprine [Flexeril] 10 mg PO TID PRN #20 tablet PRN Reason: Muscle Spasm Other Amb Orders: Physical Therapy Evaluation Time Frame: 1 Week, Location: None Selected Primary Care Physician: Care Physician,No Primary [Primary Care Provider] - Within 2 Weeks Disposition: Home Minutes spent on discharge:: 34 Patient Condition:: Good Medical Necessity - Tobacco Use Smoking Status: Never smoker Tobacco Use: Non-smoker Meaningful Use Info Meaningful Use Diagnoses (Choose all that apply): None applicable Code Visit OBSV E&M: 29985 Observation care discharge
--- NOTE | 2018-05-12 10:08 | PCM.WORK.EX ---
Work/School Excuse Work/School Excuse for:: Patient Please excuse this person from:: Work From: 05/11/18 through: 05/15/18
[2018-05-12] MEDS: Pantoprazole Sodium 40 MG Tablet PO (10:12)
[2018-05-12 11:55] LABS: Bedside Glucose 94 mg/dL (70-110)
[2018-05-12 14:28] VITALS: BP 146/93; PULSE 80; RESP 14; TEMP 36.8; O2SAT 98
== END 2018-05-12 14:45 | disposition home or self-care (01) ==
LOC: ED 13:22 → MS3 13:40
PROVIDERS: Emergency Provider Emergency Medicine
DX: S32.028A Other fracture of second lumbar vertebra, initial encounter for closed fracture (principal); S32.038A Other fracture of third lumbar vertebra, initial encounter for closed fracture; S32.048A Other fracture of fourth lumbar vertebra, initial encounter for closed fracture; W00.1XXA Fall from stairs and steps due to ice and snow, initial encounter; Y92.9 Unspecified place or not applicable; E11.9 Type 2 diabetes mellitus without complications; M25.552 Pain in left hip; M79.7 Fibromyalgia; M13.88 Other specified arthritis, other site; I10 Essential (primary) hypertension; M32.9 Systemic lupus erythematosus, unspecified; Z79.899 Other long term (current) drug therapy; Z79.84 Long term (current) use of oral hypoglycemic drugs
CPT/HCPCS: 71045; 72100; 72148; 72192; 73502; 74150; 74176; 80048; 82962; 85025; 85610; 96361; 96372; 96374; 96375; 96376; 97162; 97165; 97802; 99218; 99282; J7030; J7040; 90686; A4216; G0378; J2405

== ENCOUNTER 2018-08-17 11:43 | Emergency (ER) | payer SELFPAY ==
[2018-08-17 11:43] VITALS: BMI 31.8
[2018-08-17 11:45] VITALS: BP 149/90; PULSE 86; RESP 18; TEMP 36.6; O2SAT 98; BMI 27.5
--- NOTE | 2018-08-17 12:01 | ED.VIS.GEN ---
History of Present Illness Chief Complaint: Lower Extremity Injury Detail of Chief Complaint: Myalgias arthralgias and urinary symptoms Informant: Patient, Family, - - Son interpreted for his mother Limited by: Language barrier Onset: - - 2 weeks ago Context: - - Unable to determine Timing: - - Unable to determine Quality: Burning urination with frequency and myalgias arthralgias with URI symptoms Location: Suprapubic and generalized Current Severity: Moderate Maximum Severity: Severe Worsened by: Patient unable to state anything exacerbates her pain Relieved by: Nothing. Presently on tramadol and gabapentin Associated Symptoms: Rhinorrhea, nasal congestion, sore throat, cough with myalgias and arthralg Narrative: Patient does understand some Bulgarian and answered those questions. She preferred son as the measurement and verification engineer. She denied fever, chills night sweats. She denied ocular, visual auditory symptoms and specifically denied photophobia, neck pain or neck stiffness. She does complain of generalized myalgias arthralgias. She believes the cause of her bilateral buttocks pain is secondary to fall that occurred April 2018. No recent injury. She also reports several days of dysuria and frequency. She denies nausea, vomiting diarrhea. She denies blood in her urine. Pain is not radicular. There is no report of bowel or bladder dysfunction. Gait was observed and there is no foot drop. And she is able to squat. Prior similar symptoms: No Recent Illness/Hospitalization: No Past Medical History - Allergies and Home Meds Allergies/Adverse Reactions: Allergies aspirin Allergy (Verified 08/17/18 11:45) Angioedema Primary Care Physician: Care Physician,No Primary [NON-STAFF] - Prior records reviewed: Yes Past Medical History: None Surgical History: no surgical history Lives: With Family Smoking Status: Never smoker Alcohol: None Drugs: None - Family History Maternal Family History: Reports: - - no CAD Review of Systems General: Reports: Fever. Denies: Malaise, Sweats, Weight loss Eyes: Denies: Visual changes - bilaterally, Diplopia ENT: Reports: Rhinorrhea, Sore throat. Denies: Bilateral ear pain Cardiovascular: Denies: Chest pain, Palpitations Respiratory: Reports: Cough. Denies: Dyspnea, Sputum, Dyspnea on exertion Gastrointestinal: Denies: Abdominal pain, Nausea, Vomiting, Diarrhea, Melena, Hematochezia Genitourinary: Reports: Dysuria, Frequency. Denies: Hematuria Musculoskeletal: Reports: Myalgias, Arthralgias, Back pain, - - And bilateral buttocks pain Skin: Denies: Rash, Wounds Neurological: Reports: Headache. Denies: Weakness, Parasthesia, Numbness Hematologic: Denies: Easy bruising, Easy bleeding Physical Exam Vital Signs/Narrative: Vital Signs Temp Pulse Resp BP Pulse Ox 08/17/18 11:45 97.9 F 86 18 149/90 H 98 Inital Vital Signs reviewed: Yes General: Well nourished, Well developed, No Acute Distress Head: Normocephalic, Atraumatic Eyes: Perrl, EOMI ENT: Moist mucous membranes. Negative for: No rhinorrhea Neck: Supple, Nontender. Negative for: No lymphadenopathy Cardiovascular: Regular rate, Regular rhythm, No murmurs, Normal S1, Normal S2 Respiratory: No distress, CTA bilaterally, Chest nontender Abdomen: Soft, Nondistended, Normal bowel sounds, No masses, - - Suprapubic discomfort with palpation. Negative for: Nontender Rectal: Deferred Back: Nontender, Normal Inspection. Negative for: CVA tenderness Extremities: Nontender, No edema. Negative for: Edema Skin: Normal color, No rash. Negative for: Cyanosis, Jaundice, Rash Neurological: Alert, Oriented x3, Cranial nerves II-XII grossly intact, Normal Strength, Normal Sensation, Normal DTR, Normal Gait Psychological: Normal affect Diagnostic/Tx/Re-eval UA is negative. - Medical Decision Making Patient has URI symptoms with myalgias arthralgias that started 5 days ago. This is consistent with a viral illness. With reported history of dysuria and frequency with suprapubic discomfort will obtain UA to assess for bladder infection. Clinically she does not have pyelonephritis. Furthermore, son was informed and related to patient that her body aches is not related to the fall that resulted in a transverse vertebral body fracture and rib fracture. Patient was informed in light of her constellation of symptoms she has a viral upper respiratory infection and may have the flu. She was not tested since she is outside of the window for treatment. She was informed that the cause of her discomfort when she urinates is uncertain. She was prescribed Pyridium. ED Disposition - Plan for ED Patient: Disposition: Home or Assisted Living Diagnosis: Influenzal acute upper respiratory infection, Dysuria Instructions: ED Dysuria Uncertain Cause, ED Viral Syndrome Prescriptions: Phenazopyridine HCl [Pyridium] 100 mg PO TID #10 tablet Referrals: Care Physician,No Primary [NON-STAFF] - Doctor,Your [STAFF PHYSICIAN] - 3-5 Days if not improving Additional Instructions: Your prescription was electronically transmitted to [facility] your designated pharmacy of choice
[2018-08-17 12:27] LABS: Bacteria 0 SEEN /hpf (None Seen); Mucous, Urine 0 SEEN /hpf (<or=2+); Red Blood Cells-Urine 0 SEEN /hpf (0-5); Squamous Epithelial Cells - UA 0 SEEN /hpf (5-10); White Blood Cells 0 SEEN /hpf (0-5)
[2018-08-17 12:33] LABS: Color, Urine Yellow (Yellow); Glucose, Dipstick Normal (Normal); Ketone-Dipstick Negative (Negative); Leukocyte Esterase-Dipstick Negative /ul (Negative); Nitrite-Dipstick Negative (Negative); Occult Blood-Urine Negative /ul (Negative); Protein-Dipstick Negative (Negative); Urine Bilirubin Dipstick Negative (Negative); Urine Clarity Clear (Clear); Urine Urobilinogen Normal (Normal)
== END 2018-08-17 13:27 | disposition home or self-care (01) ==
PROVIDERS: Emergency Provider Emergency Medicine; Family Provider Physician Assistant; PCP Physician Assistant
DX: J11.1 Influenza due to unidentified influenza virus with other respiratory manifestations (principal); J06.9 Acute upper respiratory infection, unspecified; R30.0 Dysuria; Z79.84 Long term (current) use of oral hypoglycemic drugs; Z79.899 Other long term (current) drug therapy
CPT/HCPCS: 81001; 99284

== ENCOUNTER 2018-09-04 08:45 | Emergency (ER) | payer SELFPAY ==
[2018-09-04 08:45] VITALS: BP 134/83; PULSE 88; RESP 14; TEMP 37.2; BMI 27.8
--- NOTE | 2018-09-04 09:23 | ED.VISSUMM ---
- ER Visit Summary Date of Service: 09/04/18 Chief Complaint: [Parker to right hand] History of Present Illness: The patient is a 58 F [presents the emergency department complaint of parker to the right ring finger and small finger that occurred last evening. Patient states that she was frying something in a frying moran when she had grease splashed onto her fingers. Patient is right-hand dominant. Patient unsure of her last tetanus. Patient speaks very little [place] and we had to use the parts interpreter through the iPad to obtain the history. Patient has a history of diabetes as well as hypertension, fibromyalgia, and some chronic back pain issues.] Physical Examination: [HEENT-PERRLA, EOMI. Cranial nerves II through XII grossly intact. TMs clear. Mucous membranes moist. No adenopathy. Cardiovascular-regular rate and rhythm without murmur or ectopy Lungs-clear to auscultation, chest wall stable without crepitus or subcu emphysema Abdomen-normoactive bowel sounds, soft, nontender, no rebound or rigidity, no peritoneal signs. Extremities-intact ?4, normal range of motion, normal pulses. Right hand-patient has blistering parker to the dorsum of the right small finger PIP joint and the DIP joint of the ring finger. Patient has pain with range of motion and limited flexion secondary to pain and some swelling. No signs of infection noted at this time. She has normal sensation distally.] Test Results: [None indicated] Emergency Department Course and Treatment: [Clean dressings were applied to the digits.] Treatment Plan: [Patient will be given a prescription for [place] for pain. Patient advised to follow-up with primary care physician in 3-5 days.] Disposition: [Discharged home in stable condition] Impression: [Second-degree parker right ring finger and small finger] This note was generated with edenes dictation software. It may contain incorrect words, spelling, and punctuation that were not noted in review of the chart prior to signing ED Disposition - Plan for ED Patient: Referrals: Kayla Bro PA [Primary Care Provider] -
--- NOTE | 2018-09-04 09:26 | DCINST.ED_ITS ---
ED Disposition - Plan for ED Patient: Instructions: ED Burn Thermal D 1st 2nd Dressing Prescriptions: Hydrocodone Bitart/Apap 5-325 [[place] 5MG-325MG] 1 tab PO Q4H PRN PRN 2 Days #10 tab PRN Reason: Pain Referrals: Kayla Bro PA [Primary Care Provider] - 3-5 Days
[2018-09-04] MEDS: Diphth,Pertuss(Acell),Tet Vac 0.5 ML Vial IM (09:34)
[2018-09-04 09:40] VITALS: BP 118/76; PULSE 62; RESP 15; O2SAT 98
== END 2018-09-04 09:41 | disposition home or self-care (01) ==
LOC: ED 09:34
PROVIDERS: Emergency Provider Emergency Medicine; Family Provider Physician Assistant; PCP Physician Assistant
DX: T23.231A Burn of second degree of multiple right fingers (nail), not including thumb, initial encounter (principal); Z72.0 Tobacco use
CPT/HCPCS: 90471; 90715; 99282

== ENCOUNTER 2019-04-25 08:26 | Emergency (ER) | payer SELFPAY ==
[2019-04-25 08:26] VITALS: BMI 27.5
[2019-04-25 08:28] VITALS: BP 157/75; PULSE 87; RESP 17; TEMP 36.8; O2SAT 96; BMI 30.4
--- NOTE | 2019-04-25 08:57 | EKG12_ITS ---
Test Reason : ABD PAIN Blood Pressure : / mmHG Vent. Rate : 066 BPM Atrial Rate : 066 BPM P-R Int : 170 ms QRS Dur : 090 ms QT Int : 408 ms P-R-T Axes : 060 002 003 degrees QTc Int : 427 ms Normal sinus rhythm Nonspecific T wave abnormality Abnormal ECG Confirmed by SESAR TURCIOS ([id number]), editor book MIHAELA MCKOY ([id number]) on 04/30/2019 8:46:04 AM Referred By: CARMEN Confirmed By:SESAR TURCIOS
--- NOTE | 2019-04-25 08:57 | CT_ITS ---
STUDY: CT ABDOMEN AND PELVIS WITHOUT CONTRAST REASON FOR EXAM: Female, 58 years old. 3 day history of flank pain and abdominal pain. RADIATION DOSAGE (If Supplied By Facility): CTDIvol = ( 9.30 ) mGy, DLP = ( 464.91 ) mGycm TECHNIQUE: Transaxial images were obtained from the dome of the diaphragm to the symphysis pubis without oral contrast, and without intravenous contrast. Sagittal and coronal images were reconstructed. Individualized dose optimization techniques were used for this CT. COMPARISON: Comparison is made with prior examination of May 11, 2018. FINDINGS: Mild degree of increased markings at the lung bases suggestive of atelectasis. The visualized portions of the heart are within normal limits. Normal liver. Normal gallbladder and extrahepatic biliary system. Normal spleen. Normal pancreas. Normal bilateral adrenal glands. There is fullness of the right collecting system. There is a 4 mm calculus in the midportion of the right ureter Normal left kidney. There is a small hiatal hernia. Normal small intestine. There are scattered colonic diverticula consistent with diverticulosis. There is non-visualization of the appendix. Normal abdominal aorta. Normal inferior vena cava. Normal retroperitoneum. Normal urinary bladder. There is absence of the uterus consistent with a prior hysterectomy. Multiple calcified phleboliths are seen in the pelvis. Normal abdominal wall. Normal osseous structures. CT/Abdomen/Pelvis without Cont IMPRESSION: 4 mm calculus in the mid right ureter causing mild degree of right hydronephrosis. Electronically Signed: Edgardo Christianson, at 9:59 EDT , Service support ,
--- NOTE | 2019-04-25 08:58 | ED.VISSUMM ---
- ER Visit Summary Date of Service: 04/25/19 Chief Complaint: Abdominal pain, nausea, and diarrhea History of Present Illness: The patient is a 58 F who presents with abdominal pain, nausea, diarrhea for the past 3 days. Patient states her diarrhea has been loose and watery. Patient states her pain is on the right side of her abdomen. Patient describes it as cramping. Patient states the pain is worse after eating. Patient states she has had some black stools over the past couple days. Patient denies any vomiting. Patient denies any dysuria or hematuria. Patient states she did have a couple episodes of chest pain over the past couple days. Currently, patient denies any chest pain. Physical Examination: Vital signs are stable. Patient is afebrile. Patient is in no acute distress. Oral mucosa is pink and moist. Neck is supple. Trachea is midline. There is no JVD noted. Heart was regular rate and rhythm. Lungs are clear and equal bilaterally. Abdomen is soft. Bowel sounds are normal. There is diffuse tenderness but worse on the right upper and lower quadrants. There is no rebound or guarding noted. Cranial nerves II through XII are intact. There are no focal motor or sensory deficits noted. Extremities are intact. There is no edema or calf tenderness. Rectal exam showed good sphincter tone. There is minimal stool. Hemoccult was negative. Test Results: CBC, comprehensive metabolic profile, urinalysis, and troponin were obtained and were all normal. EKG showed normal sinus rhythm with a rate of 66. There are nonspecific ST-T wave changes in leads III and aVF. CT scan of the abdomen pelvis was obtained. There is a 4 mm calculus in the right mid ureter causing some mild hydronephrosis. Stool occult blood was negative. Emergency Department Course and Treatment: Patient was given IV fluids, morphine, and Zofran here. Patient was feeling better on reevaluation. Patient was given prescriptions for Percocet and Zofran. Patient was instructed to follow-up with her primary care physician in 5 to 7 days. Patient understood and was agreeable with the plan. All questions were answered. Disposition: Discharge home Impression: Right ureteral calculus This note was generated with [employer]com[employer] software. It may contain incorrect words, spelling, and punctuation that were not noted in review of the chart prior to signing ED Disposition - Plan for ED Patient: Disposition: Home or Assisted Living Diagnosis: Right ureteral calculus Instructions: KIDNEY STONE w/ Colic Prescriptions: Oxycodone HCl/Acetaminophen [Percocet 5/325] 1 tab PO Q6H PRN PRN 3 Days #12 tab PRN Reason: Pain Prescription Printed Ondansetron [Zofran Odt] 4 mg PO Q8H PRN PRN #10 tab PRN Reason: Nausea Prescription Printed Referrals: Kayla Bro PA [Primary Care Provider] - 3-5 Days
[2019-04-25] MEDS: 0.9% Normal Saline 1,000 ML 1000 ML IV (09:07)
[2019-04-25] MEDS: Ondansetron 4 MG/2 ML Vial IV (09:08)
[2019-04-25] MEDS: Morphine 4 MG/ML Syringe IV (09:08)
[2019-04-25 09:24] LABS: Bacteria 0 SEEN /hpf (None Seen); White Blood Cells 0 SEEN /hpf (0-5)
[2019-04-25 09:26] LABS: Color, Urine Yellow (Yellow); Glucose, Dipstick Normal (Normal); Ketone-Dipstick Negative (Negative); Leukocyte Esterase-Dipstick Negative /ul (Negative); Nitrite-Dipstick Negative (Negative); Occult Blood-Urine 25 /ul (Negative); Protein-Dipstick Negative (Negative); Specific Gravity, Urine 1.015 (1.002-1.030); Urine Bilirubin Dipstick Negative (Negative); Urine Clarity Sl. Cloudy (Clear); Urine Urobilinogen Normal (Normal)
[2019-04-25 09:31] LABS: Absolute Lymphocyte Count 1.56 X10^3/uL (0.83-4.51); Absolute Neutrophil Count 2.9 X10^3/uL (2.0-7.7); Basophil# 0.02 X10^3/uL; Basophil% 0.4 % (0-1); Eosinophil# 0.08 X10^3/uL; Eosinophils% 1.6 % (0-5); Hemoglobin 13.2 g/dL (12.0-15.0); Lymphocyte # 1.56 X10^3/ul (4.0); Lymphocyte % 31.8 % (19-41); Mean Corpuscular Hgb 29.3 pg (27.0-32.0); Mean Corpuscular Volume 88.7 fL (81-99); Mean Platelet Vol. 10.4 fl (6.2-12.0); Monocyte# 0.37 X10^3/uL; Monocyte% 7.6 % (0-10); NRBC Flagged by Analyzer 0 % (0-5); Neutrophil # 2.86 X10^3/uL (2.7-7.7); Neutrophil % 58.4 % (47-70); Platelet Count 264 K/mm3 (150-450); RBC Distribution Width CV 12.5 % (11.6-14.6); RBC Distribution Width SD 40.9 fl (35.1-43.9); Red Blood Count 4.51 M/mm3 (4.2-5.4); White Blood Count 4.9 K/mm3 (4.4-11.0)
[2019-04-25 09:34] LABS: Mucous, Urine 1+ /hpf (<or=2+); Red Blood Cells-Urine 0-5 SEEN /hpf (0-5); Squamous Epithelial Cells - UA 0-5 SEEN /hpf (5-10)
[2019-04-25 09:44] LABS: ALB/GLOB Ratio 0.9 RATIO (0.9-2.4); AST(SGOT) 26 U/L (15-37); Alanine Aminotransfer ALT/SGPT 29 U/L (13-56); Albumin, Serum 3.5 g/dL (3.2-5.0); Alkaline Phosphatase 98 U/L (45-117); Anion Gap 7 (5-15); BUN 10 mg/dL (7-18); BUN/Creat Ratio 14.7 RATIO (10-20); Chloride 109 mmol/L (98-107); Creatinine, Serum 0.68 mg/dL (0.55-1.02); EST Glomerular Filtration Rate 94 mL/min (>60); Est Glom Filt Rate - Afr Amer 113 mL/min (>60); Estimated Creatinine Clearance 70.45 ml/min; Globulin 3.9 g/dL (2.2-4.2); Glucose 101 mg/dL (74-106); Lipase 190 U/L (73-393); Potassium 3.5 mmol/L (3.5-5.1); Protein, Total 7.4 g/dL (6.4-8.2); Sodium Level 142 mmol/L (136-145)
[2019-04-25 10:33] VITALS: BP 124/78; PULSE 87; RESP 18; O2SAT 99
== END 2019-04-25 10:34 | disposition home or self-care (01) ==
PROVIDERS: Emergency Provider Emergency Medicine; Family Provider Physician Assistant; PCP Physician Assistant
DX: N13.2 Hydronephrosis with renal and ureteral calculous obstruction (principal); M19.90 Unspecified osteoarthritis, unspecified site; Z72.0 Tobacco use
CPT/HCPCS: 74176; 80053; 81001; 82274; 83690; 84484; 85025; 93005; 96361; 96374; 96375; 99283; J7030; A4216; J2405

== ENCOUNTER 2019-05-14 08:58 | Emergency (ER) | payer SELFPAY ==
[2019-05-14 09:00] VITALS: BP 134/83; PULSE 87; RESP 17; TEMP 36.6; O2SAT 98; BMI 31.8
--- NOTE | 2019-05-14 09:11 | ED.DCSUM_ITS ---
History of Present Illness Chief Complaint: Fall Informant: Patient Onset: Yesterday Timing: Continuous Current Severity: Mild Maximum Severity: Mild Narrative: Presents with a mechanical fall on her right knee yesterday. No head injury no loss of consciousness she has some mild hip pain she is able to ambulate but quite difficult secondary to pain. No other injury Past Medical History - Allergies and Home Meds Allergies/Adverse Reactions: Allergies aspirin Allergy (Verified 05/14/19 08:59) Angioedema ibuprofen Adverse Reaction (Verified 05/14/19 08:59) Other ABD PAIN Primary Care Physician: NOT,DEFINED [NON-STAFF] - Past Medical History: None Review of Systems General: Reports: Fever, - - No loss of consciousness Eyes: Reports: Visual changes - bilaterally Cardiovascular: Denies: Chest pain Musculoskeletal: Reports: Arthralgias, Extremity Pain Skin: Denies: Rash Neurological: Denies: Headache, Weakness Hematologic: Denies: Easy bruising Allergy: Denies: Uticaria Physical Exam Vital Signs/Narrative: Vital Signs Temp Pulse Resp BP Pulse Ox 05/14/19 09:00 97.8 F 87 17 134/83 H 98 General: Well nourished, Well developed Head: Normocephalic Eyes: Negative for: Pale conjunctiva ENT: - Cardiovascular: Regular rate Respiratory: No distress Abdomen: Soft, Nontender Back: Nontender Extremities: - - There is right knee tenderness, there is a small effusion she has a normal extensor mechanism, difficult to assess if there is laxity secondary to the effusion. Skin: Normal color, No rash Neurological: Alert Diagnostic/Tx/Re-eval - Medical Decision Making Patient has a knee effusion, she may have an internal derangement but it is diff icult to assess secondary to pain, I will refer to orthopedics. ED Disposition - Plan for ED Patient: Disposition: Home or Assisted Living Diagnosis: Internal derangement of knee Instructions: Knee Sprain: Collateral Ligaments, Knee Sprain Prescriptions: Hydrocodone Bitart/Apap 5-325 [[place] 5MG-325MG] 1 tab PO Q4H PRN PRN 2 Days #10 tab PRN Reason: Pain Prescription Printed Referrals: Emerson Mccoy MD [STAFF PHYSICIAN] -
[2019-05-14] MEDS: HYDROcodone Bitartrate/Apap 5/325 Tablet PO (09:39)
--- NOTE | 2019-05-14 09:52 | RAD_ITS ---
STUDY: X-RAY - RIGHT KNEE REASON FOR EXAM: Female, 58 years old. Pain following a fall. TECHNIQUE: 4 view(s) of the knee. COMPARISON: None. FINDINGS: Normal visualized distal femur. Normal visualized proximal tibia and fibula. Normal proximal tibiofibular articulation. Normal medial femorotibial compartment. Normal lateral femorotibial compartment. Normal patellofemoral articulation. Small joint effusion. RAD/Knee 4 or More Views IMPRESSION: Small joint effusion. Electronically Signed: Edgardo Christianson, at 10:37 EST , Service support ,
--- NOTE | 2019-05-14 10:00 | RAD_ITS ---
STUDY: X-RAY - PELVIS AND RIGHT HIP REASON FOR EXAM: Female, 58 years old. Pain following a fall. TECHNIQUE: views of the pelvis and hip. COMPARISON: None. FINDINGS: There is a non-specific bowel gas pattern. There are multiple calcified phleboliths. Normal bilateral iliac wings, sacroiliac joints and visualized sacrum. Normal bilateral superior and inferior pubic rami. There are degenerative changes of the pubic symphysis with articular narrowing and sclerosis. Normal bilateral ischial tuberosities. Normal visualized femoral head. Normal acetabulum. Normal hip joint. RAD/HIP, UNI W/ Pelvis 2-3 Views IMPRESSION: No acute abnormality is seen. Electronically Signed: Edgardo Christianson, at 10:35 EST , Service support ,
[2019-05-14 11:09] VITALS: BP 135/78; PULSE 63; RESP 18
== END 2019-05-14 11:24 | disposition home or self-care (01) ==
PROVIDERS: Emergency Provider Emergency Medicine; Family Provider Physician Assistant; PCP Physician Assistant
DX: M23.91 Unspecified internal derangement of right knee (principal)
CPT/HCPCS: 73502; 73564; 99284

== ENCOUNTER 2019-06-20 11:26 | Emergency (ER) | payer SELFPAY ==
[2019-06-20 11:28] VITALS: BP 176/84; PULSE 99; RESP 20; TEMP 36.2; O2SAT 97; BMI 31.1
--- NOTE | 2019-06-20 11:48 | ED.VISSUMM ---
- ER Visit Summary Date of Service: 06/20/19 Chief Complaint: Cough and congestion History of Present Illness: The patient is a 58 F who presents with cough and congestion that began yesterday. Patient states it is getting worse today. Patient states she is coughing up yellow sputum. Patient states she has pain in her chest with coughing. Patient denies any fevers or chills. Patient admits to nausea but denies any vomiting. Patient has a history of asthma and feels short of breath at times. Patient also admits to a sore throat and rhinorrhea. Physical Examination: Vital signs are stable. Patient is afebrile. Patient is in no acute distress. Oral mucosa is pink and moist. There is some postnasal drainage noted in the oropharynx. There are no exudates noted. Neck is supple. Trachea is midline. There is no JVD or lymphadenopathy. Heart was regular rate and rhythm. Lungs showed diffuse rhonchi. There is good respiratory effort noted. Abdomen is soft. Bowel sounds are normal. There is no tenderness. There is no guarding. Cranial nerves II through XII are intact. There are no focal motor or sensory deficits noted. Test Results: PA and lateral chest x-ray was obtained. There is no acute cardiopulmonary process noted. Emergency Department Course and Treatment: Patient was given a DuoNeb aerosol. Patient was feeling better on reevaluation. Patient was advised that this is most likely a viral bronchitis. Patient was instructed to follow-up with her primary care physician in 5 to 7 days. Patient was given a prescription for Mucinex DM. Patient understood and was agreeable with the plan. All questions were answered. Disposition: Discharge home Impression: Viral bronchitis This note was generated with [employer] dictation software. It may contain incorrect words, spelling, and punctuation that were not noted in review of the chart prior to signing ED Disposition - Plan for ED Patient: Disposition: Home or Assisted Living Diagnosis: Viral bronchitis Instructions: BRONCHITIS with Wheezing (Adult) Prescriptions: Guaifenesin/Dextromethorphan [Mucinex Dm ER 1,200-60 mg Tab] 1 ea PO BID PRN PRN #20 tab.er.12h PRN Reason: Cough Prescription Printed Referrals: Kayla Bro PA [Primary Care Provider] - 5-7 Days
[2019-06-20 11:54] VITALS: O2SAT 96
[2019-06-20 11:58] VITALS: PULSE 92; RESP 18
[2019-06-20] MEDS: Ipratropium/Albuterol Sulfate 3 ML AMPUL.NEB INHALATION (11:58)
--- NOTE | 2019-06-20 12:10 | RAD_ITS ---
STUDY: X-RAY CHEST REASON FOR EXAM: Female, 58 years old. Cough and congestion. TECHNIQUE: Frontal and lateral views of the chest. COMPARISON: May 11, 2018 FINDINGS: Stable mild hyperexpansion. There is no demonstrated pleural abnormality. Normal size heart. Normal mediastinum and diana. Normal visualized pulmonary arteries. Normal visualized aortic arch and descending thoracic aorta. Moderate thoracolumbar spondylosis. Normal visualized ribs, clavicles, and shoulders. There is no demonstrated abnormality of the visualized soft tissue structures of the upper abdomen. RAD/Chest PA and Lateral IMPRESSION: No active or acute cardiopulmonary disease. Electronically Signed: Tor Lyon MD at 12:26 EST , Service support ,
[2019-06-20 13:21] VITALS: BP 169/91; PULSE 92; RESP 18; O2SAT 95
== END 2019-06-20 13:22 | disposition home or self-care (01) ==
PROVIDERS: Emergency Provider Emergency Medicine; Family Provider Physician Assistant; PCP Physician Assistant
DX: J20.8 Acute bronchitis due to other specified organisms (principal); J45.909 Unspecified asthma, uncomplicated; E66.9 Obesity, unspecified; Z72.0 Tobacco use
CPT/HCPCS: 71046; 94640; 99282

== ENCOUNTER 2019-08-01 10:36 | Emergency (ER) | payer SELFPAY ==
[2019-08-01 10:38] VITALS: BP 144/79; PULSE 90; RESP 18; TEMP 36.6; O2SAT 100; BMI 32.9
--- NOTE | 2019-08-01 11:35 | ED.DCSUM_ITS ---
- ER Visit Summary Date of Service: 08/01/19 Chief Complaint: Left knee pain left knee pain History of Present Illness: The patient is a 59 F history of kidney stones. 3 prior C-sections and hysterectomy. No prior knee surgery. Patient states she has had knee pain for last 3 days. She denies any fever or redness. Hurts more to walk. Physical Examination: Middle-aged female no acute distress vital signs are stable afebrile. H EENT exam unremarkable. Neck nontender. No lympha denopathy. Lungs clear to auscultation bilaterally. Heart regular rhythm no murmur. Abdomen soft nontender normal bowel sounds no peritoneal signs. Extremities moves all 4. Neurovascular intact. Left knee is tender to palpation. There is no significant effusion. She is able do flexion extension. Quadriceps patellar tendons intact. She is tender 180 degrees. She has more pain with flexion. There is no signs of a septic joint. No cellulitis. No gross bony deformity. ACL PCL MCL LCL appear to be intact. There is no bruising. No discoloration. Left calf and lower leg are nontender. No edema. Left foot is neurovascular intact with dorsi plantarflexion and DP pulse. Test Results: Left knee x-ray shows no acute abnormality. Read by myself and the radiologist. Emergency Department Course and Treatment: Patient with left knee pain without specific trauma. Treatment Plan: Repeat exam no change at 1315. Discussed with patient treatment options. She states NSAIDs upset her stomach and give her pain. Ice and Tylenol. Follow-up if not improving. Disposition: Discharge Impression: Acute left knee pain This note was generated with [employer] dictation software. It may contain incorrect words, spelling, and punctuation that were not noted in review of the chart prior to signing ED Disposition - Plan for ED Patient: Referrals: Kayla Bro PA [Primary Care Provider] -
--- NOTE | 2019-08-01 11:40 | RAD_ITS ---
STUDY: X-RAY - LEFT KNEE REASON FOR EXAM: Female, 59 years old. Left knee pain and swelling; no known injury TECHNIQUE: 4 view(s) of the knee. COMPARISON: None. FINDINGS: Normal visualized distal femur. Normal visualized proximal tibia and fibula. Normal proximal tibiofibular articulation. Normal medial femorotibial compartment. Normal lateral femorotibial compartment. Normal patellofemoral articulation. The soft tissue structures are unremarkable. RAD/Knee 4 or More Views IMPRESSION: Normal x-ray examination of the knee. Electronically Signed: Edgardo Christianson, at 12:11 EST , Service support ,
--- NOTE | 2019-08-01 12:22 | ED.RN ---
talked with interpreter translator. pt states gets burning in stomach when takes. discussed options. pt states does not want any
--- NOTE | 2019-08-01 13:24 | ED.DEP ---
ED Disposition - Plan for ED Patient: Disposition: Home or Assisted Living Instructions: KNEE PAIN, Uncertain Cause Referrals: Kayla Bro PA [Primary Care Provider] - 1 Week if not improving Additional Instructions: Ice to your knee to decrease pain and swelling. Tylenol for pain. I strongly encourage you to try Motrin to decrease the pain and inflammation but obviously if that upsets your stomach that you may choose not to.
== END 2019-08-01 14:05 | disposition home or self-care (01) ==
PROVIDERS: Emergency Provider Emergency Medicine; PCP Physician Assistant
DX: M25.562 Pain in left knee (principal); Z87.442 Personal history of urinary calculi; Z72.0 Tobacco use
CPT/HCPCS: 73564; 99282

== ENCOUNTER 2019-09-09 11:10 | Emergency (ER) | payer SELFPAY ==
[2019-09-09 11:11] VITALS: BP 146/93; PULSE 90; RESP 20; TEMP 36.8; O2SAT 100; BMI 31.1
--- NOTE | 2019-09-09 11:45 | ED.VIS.GEN ---
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 No chest pain or shortness of breath. No wheezing. No leg pain or swelling. No nausea vomiting or diarrhea. No sick contacts. No recent travel. No known exposures to anyone diagnosed with a coronavirus. Prior similar symptoms: No Recent Illness/Hospitalization: No <Seun Burkett - Last Filed: 09/09/19 12:40> Informant: Patient <Caleb Juniorfarnazclay - Last Filed: 09/09/19 12:46> Chief Complaint: Cold Sx Past Medical History Prior records reviewed: Yes Past Medical History: - - Hypertension, fibromyalgia Surgical History: no surgical history Lives: With Family Smoking Status: Current every day smoker Alcohol: None Drugs: None <Seun Burkett - Last Filed: 09/09/19 12:40> Surgical History: no surgical history Smoking Status: Current every day smoker - Family History Maternal Family History: Reports: - - no CAD <EdvinstevenDoerenuka - Last Filed: 09/09/19 12:46> - Allergies and Home Meds Allergies/Adverse Reactions: Allergies aspirin Allergy (Verified 09/09/19 11:39) Angioedema ibuprofen Adverse Reaction (Verified 09/09/19 11:39) Other Primary Care Physician: Kayla Bro PA [Primary Care Provider] - Review of Systems All systems negative except as indicated General: Reports: Chills, Fever, Malaise, Subjective. Denies: Sweats, Weight loss Eyes: Denies: Visual changes - bilaterally, Blurred Vision - bilaterally, Diplopia ENT: Reports: Rhinorrhea, Sore throat Cardiovascular: Denies: Chest pain, Palpitations, Heart racing Respiratory: Reports: Cough. Denies: Dyspnea, Sputum, Dyspnea on exertion, Orthopnea, Paroxysmal nocturnal dyspnea Gastrointestinal: Denies: Abdominal pain, Nausea, Vomiting, Diarrhea Genitourinary: Denies: Dysuria, Hematuria, Frequency Musculoskeletal: Reports: Myalgias. Denies: Arthralgias, Neck pain, Back pain, Swelling Skin: Denies: Rash, Abscess, Abrasions, Wounds Neurological: Denies: Headache, Weakness, Parasthesia Endocrine: Denies: Polyuria, Polydipsia <Seun Burkett - Last Filed: 09/09/19 12:40> Physical Exam Vital Signs/Narrative: Vital Signs Temp Pulse Resp BP Pulse Ox 09/09/19 11:58 78 18 09/09/19 11:11 98.2 F 90 20 H 146/93 H 100 Inital Vital Signs reviewed: Yes General: Well nourished, Well developed, No Acute Distress Eyes: Perrl, EOMI ENT: Moist mucous membranes, Nasal congestion Neck: Supple, Nontender, No lymphadenopathy, No JVD Cardiovascular: Regular rate, Regular rhythm, No murmurs Respiratory: No distress, Chest nontender, Wheezing, Diminished, Decreased Air Movement Abdomen: Soft, Nontender, Nondistended, Normal bowel sounds, No masses Back: Nontender, Normal Inspection Extremities: Nontender, No edema Skin: Normal color, No rash, No Trauma Neurological: Alert, Oriented x3 Psychological: Normal affect, Normal Mood <Seun Burkett - Last Filed: 09/09/19 12:40> Vital Signs/Narrative: Vital Signs Temp Pulse Resp BP Pulse Ox 09/09/19 11:11 98.2 F 90 20 H 146/93 H 100 <Ash Junior - Last Filed: 09/09/19 12:46> Diagnostic/Tx/Re-eval Chest X-Ray - ED: 2 View, Read by ED Physician, Read by Radiologist, No Acute Disease, Chronic Changes - Medical Decision Making Vital signs stable. Patient given aerosols and Decadron. Chest x-ray unremarkable. Repeat evaluation feels better. Will prescribe albuterol Tessalon and have her follow-up with her doctor. <Seun Burkett - Last Filed: 09/09/19 12:40> - Medical Decision Making National coronavirus emergency and the fact no exposures Patient seen with Seun goldstein PA agree with history and physical as above symptoms of cough runny nose for 2 days on exam lungs sound clear heart tones unremarkable vitals unremarkable see the ED chart for full details <Ash Junoir - Last Filed: 09/09/19 12:46> ED Disposition <AdilenechristianoSeun - Last Filed: 09/09/19 12:40> <BennettcarolDoerenuka - Last Filed: 09/09/19 12:46> - Plan for ED Patient: Disposition: Home or Assisted Living Diagnosis: Acute bronchitis Instructions: BRONCHITIS, Antiobiotic Treatment (Adult) Prescriptions: Benzonatate [Tessalon Perle] 200 mg PO TID PRN PRN #20 cap PRN Reason: Cough Prescription Printed Albuterol Inhaler [Ventolin Hfa] 1 - 2 puff INHALATION Q4H PRN PRN #1 inhaler PRN Reason: Wheezing Prescription Printed Azithromycin [Zithromax Z-Quoc] 250 mg PO UD #1 box Prescription Printed Referrals: Kayla Bro PA [Primary Care Provider] -
[2019-09-09] MEDS: Ipratropium/Albuterol Sulfate 3 ML AMPUL.NEB INHALATION (11:50)
[2019-09-09] MEDS: dexAMETHasone 10 MG/ML Vial PO.IVFORM (11:50)
[2019-09-09 11:58] VITALS: PULSE 78; RESP 18
--- NOTE | 2019-09-09 12:10 | RAD_ITS ---
STUDY: X-RAY CHEST REASON FOR EXAM: Female, 59 years old. Worsening shortness of breath TECHNIQUE: PA and 2 lateral views of the chest. COMPARISON: 06/20/2019 FINDINGS: The lungs are clear and expanded. There is no demonstrated pleural abnormality. Normal size heart. Normal mediastinum and diana. Normal visualized pulmonary arteries. Normal visualized aortic arch and descending thoracic aorta. There are diffuse degenerative changes of the visualized thoracic spine. Normal visualized ribs, clavicles, and shoulders. There is no demonstrated abnormality of the visualized soft tissue structures of the upper abdomen. RAD/Chest PA and Lateral IMPRESSION: No acute pulmonary process Electronically Signed: Jaylen Dial MD at 12:29 EDT , Service support ,
[2019-09-09 12:35] VITALS: BP 148/88; PULSE 69; RESP 16; O2SAT 97
== END 2019-09-09 12:49 | disposition home or self-care (01) ==
PROVIDERS: Emergency Provider Physician Assistant Medical; PCP Physician Assistant
DX: J20.9 Acute bronchitis, unspecified (principal); I10 Essential (primary) hypertension; F17.200 Nicotine dependence, unspecified, uncomplicated
CPT/HCPCS: 71046; 94640; 99283

== ENCOUNTER 2019-12-30 15:58 | Emergency (ER) | payer SELFPAY ==
[2019-12-30 16:00] VITALS: BP 155/74; PULSE 78; RESP 16; TEMP 36.7; O2SAT 98; BMI 26.6
--- NOTE | 2019-12-30 16:17 | RAD_ITS ---
STUDY: X-RAY - LEFT SHOULDER REASON FOR EXAM: Female, 59 years old. Patient fell at work on tuesday. Pain in left shoulder, into left humerus and up into neck. Patient states hit her head as well when she fell. TECHNIQUE: 4 view(s) of the shoulder. COMPARISON: None. FINDINGS: Normal glenohumeral articulation. There are mild degenerative changes in the acromion clavicular joint Normal humeral head and visualized proximal humerus. The soft tissue structures are unremarkable. Normal visualized pulmonary apex. RAD/Shoulder min 2 Views IMPRESSION: No acute osseous injury. Electronically Signed: Sarah Ferraro, at 18:00 EDT Tel , Service support ,
--- NOTE | 2019-12-30 16:17 | RAD_ITS ---
STUDY: X-RAY - LEFT HUMERUS REASON FOR EXAM: Female, 59 years old. Patient fell at work on tuesday. Pain in left shoulder, into left humerus and up into neck. Patient states hit her head as well when she fell. TECHNIQUE: 2 view(s) of the humerus. COMPARISON: None. FINDINGS: Normal visualized humerus. There is no demonstrated fracture or osseous destructive process. There is no demonstrated soft tissue abnormality. RAD/Humerus min 2 Views IMPRESSION: Normal x-ray examination of the humerus. Electronically Signed: Sarah Ferraro, at 18:02 EDT Tel , Service support ,
--- NOTE | 2019-12-30 16:18 | ED.DCSUM_ITS ---
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 Patient states that last week she was at work. 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 It is continued to worsen throughout the weekend. She denies any fall or direct injury to her arm. She is right-hand dominant. She has been taking naproxen and Tylenol for pain. - Past Medical History (1) Kidney stone Status: Resolved (2) Hypertension Status: Chronic (3) Lupus Status: Chronic Past Medical History - Allergies and Home Meds Allergies/Adverse Reactions: Allergies aspirin Allergy (Verified 12/30/19 17:00) Angioedema ibuprofen Adverse Reaction (Verified 12/30/19 17:00) Other Primary Care Physician: Kayla Bro PA [Primary Care Provider] - Prior records reviewed: Yes Past Medical History: - - Arthritis Surgical History: no surgical history Smoking Status: Current every day smoker - Family History Maternal Family History: Reports: - - no CAD Review of Systems General: Denies: Chills, Fever Eyes: Denies: Visual changes - bilaterally ENT: Denies: Bilateral ear pain Cardiovascular: Denies: Chest pain Respiratory: Denies: Dyspnea, Cough Gastrointestinal: Denies: Abdominal pain, Nausea, Vomiting Musculoskeletal: Reports: Myalgias, Arthralgias, Neck pain, Extremity Pain Skin: Denies: Rash Neurological: Denies: Headache Hematologic: Denies: Easy bruising, Easy bleeding Allergy: Denies: Uticaria Physical Exam Vital Signs/Narrative: Vital Signs Temp Pulse Resp BP Pulse Ox 12/30/19 16:00 98.0 F 78 16 155/74 H 98 Inital Vital Signs reviewed: Yes General: Well nourished, Well developed Head: Normocephalic Eyes: Perrl, EOMI ENT: Moist mucous membranes Neck: - - C-spine tenderness noted. Cardiovascular: Regular rate, Regular rhythm Respiratory: No distress, CTA bilaterally Abdomen: Soft, Nontender Extremities: - - Diffuse tenderness throughout the left shoulder and left upper arm. No tenderness over the forearm or hand. Abrasions noted to the lateral left upper arm. Strong distal pulses noted. Decreased range of motion secondary to pain. Neurological: Alert, Oriented x3 Psychological: Normal affect Diagnostic/Tx/Re-eval Impressions Humerus X-Ray 12/30/19 16:17 IMPRESSION: Normal x-ray examination of the humerus. Electronically Signed: Sarah Ferraro, at 18:02 EDT Tel , Service support , Shoulder X-Ray 12/30/19 16:17 IMPRESSION: No acute osseous injury. Electronically Signed: Imanihesham Ronan, at 18:00 EDT Tel , Service support , Cervical Spine X-Ray 12/30/19 17:18 IMPRESSION: Normal x-ray examination of the visualized cervical spine. Electronically Signed: Sarah Ronan, at 18:01 EDT Tel , Service support , 12/30/19 16:17 Humerus min 2 Views [RAD] Stat Shoulder min 2 Views [RAD] Stat 12/30/19 17:18 Xray Cervical [Cerv Spine 2 or 3 Views] [RAD] Stat - Medical Decision Making He patient will continue Tylenol and naproxen at home. At this time her exam and findings are most consistent with tendinitis and muscle spasm. She will be given Flexeril and prednisone, first doses given here. She is given work restrictions and is to follow-up with [facility]. ED Disposition - Plan for ED Patient: Disposition: Home or Assisted Living Diagnosis: Tendinitis, Muscle spasm Instructions: ED SPASM Muscle Prescriptions: Prednisone [Deltasone] 40 mg PO DAILY #10 tab Transmission Status: Pending to [facility] cycloBENZAPRine HCl [Flexeril] 10 mg PO TID PRN #20 tab PRN Reason: Muscle Spasm Transmission Status: Pending to [facility] Referrals: [facility] [GROUP OF PHYSICIANS] - 3-5 Days
--- NOTE | 2019-12-30 16:58 | ED.RN ---
MEDICAL HISTORY AND ASSESSMENT REVIEWED VIA [employer]ACHINE [employer].
--- NOTE | 2019-12-30 17:18 | RAD_ITS ---
STUDY: X-RAY - CERVICAL SPINE REASON FOR EXAM: Female, 59 years old. Patient fell at work on tuesday. Pain in left shoulder, into left humerus and up into neck. Patient states hit her head as well when she fell. TECHNIQUE: 4 view(s) of the cervical spine were obtained. COMPARISON: None FINDINGS: Normal anterior atlantoaxial articulation. Normal odontoid process. Normal cervical lordosis. Normal vertebral bodies and endplates. Normal disc space heights. Normal visualized intervertebral neuroforamina. The soft tissue structures are unremarkable. RAD/Cerv Spine 2 or 3 Views IMPRESSION: Normal x-ray examination of the visualized cervical spine. Electronically Signed: Sarah Ferraro, at 18:01 EDT Tel , Service support ,
[2019-12-30 18:19] VITALS: RESP 18
[2019-12-30] MEDS: cycloBENZAPRine HCl 10 MG Tablet PO (18:35)
[2019-12-30] MEDS: predniSONE 20 MG Tablet 40 MG PO (18:35)
== END 2019-12-30 18:35 | disposition home or self-care (01) ==
PROVIDERS: Emergency Provider Emergency Medicine; PCP Physician Assistant
DX: M62.838 Other muscle spasm (principal); M77.8 Other enthesopathies, not elsewhere classified
CPT/HCPCS: 72040; 73030; 73060; 99283

== ENCOUNTER 2020-03-25 08:14 | Emergency (ER) | payer SELFPAY ==
[2020-03-25 08:15] VITALS: PULSE 105; RESP 18; TEMP 36.3; O2SAT 99; BMI 60.5
--- NOTE | 2020-03-25 09:04 | ED.RN ---
pt states that she has been out of her medications for HTN and DM for several months because she missed an appt and the dr did not call me back.
--- NOTE | 2020-03-25 09:13 | EKG12_ITS ---
Test Reason : ABNL PAIN Blood Pressure : / mmHG Vent. Rate : 082 BPM Atrial Rate : 082 BPM P-R Int : 174 ms QRS Dur : 082 ms QT Int : 384 ms P-R-T Axes : 059 -04 022 degrees QTc Int : 448 ms Normal sinus rhythm Nonspecific T wave abnormality Abnormal ECG Confirmed by MANDI DIAZ, ANDREA ([id number]), editorial assistant MIHAELA MCKOY ([id number]) on 04/01/2020 9:00:39 AM Referred By: BOZENA Confirmed By:GENESIS RAYMOND MD
--- NOTE | 2020-03-25 09:15 | ED.VIS.GI ---
History of Present Illness Chief Complaint: Abd Pain Informant: Patient - Abdominal Pain/Flank Pain Onset: Days Context: Gradual Onset Timing: Intermittent Quality: Sharp, Stabbing Worsened by: Food Relieved by: Nothing - Nausea/Vomiting/Emesis GI Symptom: Nausea. Negative for: Vomiting - Diarrhea/Melena/Hematochezia GI Symptom: Diarrhea. Negative for: Melena, Hematochezia Associated Symptoms: Negative for: Dysuria, Frequency, Hematuria Narrative: Patient is a 59-year-old Argentine-speaking female presenting with abdominal pain and diarrhea. Patient states she is had pain for the past 3 days. She states it starts on her left flank and radiates down to her left lower quadrant. She describes it as intermittent, sharp and stabbing. She states also radiates into her back. She states it feels like prior kidney stone. She denies any black or blood in her stool. She is had associated nausea but no vomiting. In addition patient notes that the pain seems to be worse with eating. She states that yesterday she had an episode of chest pain while at work. She states that was intermittent but is currently resolved. She also notes has had a dry throat and a dry cough for the past few days. She denies any fever and states she gets her temperature checked at work every day. Finally she is also complaining of chronic knee, neck and back pain. States been more severe the past few days. She takes Naprosyn and Tylenol for this which does seem to help. Patient has any urinary symptoms including dysuria or hematuria. She notes she has a history of diabetes and hypertension but is been out of her meds for the past few months because she missed a doctor's appointment. No other complaints at this time. Prior similar symptoms: Yes - kidney stone Past Medical History - Allergies and Home Meds Allergies/Adverse Reactions: Allergies aspirin Allergy (Verified 12/30/19 17:00) Angioedema ibuprofen Adverse Reaction (Verified 12/30/19 17:00) Other Primary Care Physician: Kayla Bro PA [Primary Care Provider] - Past Medical History: - - Diabetes mellitus, hypertension Surgical History: hysterectomy, - - x3 Smoking Status: Current every day smoker - Family History Maternal Family History: Reports: - - no CAD Review of Systems General: Reports: Malaise. Denies: Chills, Fever, Sweats Eyes: Denies: Visual changes - bilaterally, Diplopia ENT: Denies: Rhinorrhea, Sore throat Cardiovascular: Reports: Chest pain. Denies: Palpitations Respiratory: Denies: Dyspnea, Cough, Dyspnea on exertion Gastrointestinal: Reports: Abdominal pain, Nausea, Diarrhea. Denies: Vomiting, Melena, Hematochezia Genitourinary: Denies: Dysuria, Hematuria, Frequency Musculoskeletal: Reports: Neck pain, Back pain, Extremity Pain - Right knee Skin: Denies: Rash, Wounds Neurological: Denies: Headache, Weakness, Numbness Physical Exam Vital Signs/Narrative: Vital Signs Temp Pulse Resp Pulse Ox 03/25/20 08:15 97.4 F L 105 H 18 99 Inital Vital Signs reviewed: Yes General: Well nourished, Well developed, No Acute Distress Head: Normocephalic, Atraumatic Eyes: Perrl, EOMI ENT: Moist mucous membranes, No rhinorrhea Neck: Supple, Nontender Cardiovascular: Regular rate, Regular rhythm, No murmurs Respiratory: No distress, CTA bilaterally, Chest nontender Abdomen: Soft, Nondistended, Normal bowel sounds, Tender - Diffusely but most pronounced in the right upper quadrant, Greer's sign. Negative for: Guarding, Rebound tenderness Back: Nontender, Normal Inspection, CVA tenderness - Right-sided, - - No reproducible paraspinal tenderness palpation. Negative for: Spinal tenderness Extremities: Nontender, No edema Skin: Normal color, No rash Neurological: Alert, Oriented x3, Cranial nerves II-XII grossly intact, Normal Strength, Normal Sensation Psychological: Normal affect, Normal Mood Diagnostic/Tx/Re-eval Chest X-Ray - ED: 1 View, Read by ED Physician, Read by Radiologist, No Acute Disease Clinical Impression(s) from Imaging Studies Abdomen/Pelvis CT 03/25/20 10:12 IMPRESSION: Findings in keeping with a pancolitis worse in the right hemicolon. Electronically Signed: Edgardo Christianson, at 10:57 EDT , Service support , Chest X-Ray 03/25/20 10:22 IMPRESSION: No acute abnormality is seen. Electronically Signed: Edgardo Christianson, at 10:46 EDT , Service support , Laboratory Data 03/25/20 03/25/20 03/25/20 09:27 09:27 10:50 WBC 6.8 RBC 4.25 Hgb 12.1 Hct 37.6 MCV 88.5 MCH 28.5 MCHC 32.2 RDW Std Deviation 40.6 RDW Coeff of Ky 12.4 Plt Count 254 MPV 9.9 Immature Gran % (Auto) 0.100 Neut % (Auto) 74.2 H Lymph % (Auto) 16.8 L Terry % (Auto) 7.7 Eos % (Auto) 0.9 Baso % (Auto) 0.3 Absolute Neuts (auto) 5.0 Absolute Lymphs (auto) 1.14 Nucleated RBC % 0 Sodium 138 Potassium 3.3 L Chloride 108 H Carbon Dioxide 26.0 Anion Gap 4 L BUN 13 Creatinine 0.76 Estim Creat Clear Calc 62.26 Est GFR (MDRD) Af Amer 99 Est GFR (MDRD) Non-Af 82 BUN/Creatinine Ratio 17.0 Glucose 100 Calcium 8.9 Total Bilirubin 0.20 AST 21 ALT 23 Alkaline Phosphatase 117 Troponin I < 0.015 Total Protein 7.5 Albumin 3.4 Globulin 4.1 Albumin/Globulin Ratio 0.8 L Lipase 129 Urine Color Yellow Urine Clarity Sl. 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 All interactions including HPI and exit counseling are done using a Argentine foreign language teacher. She appears uncomfortable but nontoxic in no acute distress. Her vital signs are normal. Her abdomen is more diffusely tender so is hard to pinpoint area of pain. Her lab work is unremarkable including a normal CBC. Patient is given IV fluids, morphine and Zofran in the ER. CT of the abdomen pelvis does show pancolitis more pronounced on the right hemicolon. Patient does not appear to be pain out of proportion and I do not think she has ischemic colitis. She is not having any blood in her stool. She will be treated as infectious colitis with Augmentin. She is given first dose in the emergency room. She also discharged home with tramadol for pain control and Zofran for nausea. She is counseled there is a chance that her symptoms might worsen within the next 48 hours and she might need to return to the emergency room. She verbalizes agreement understanding with this. She is amenable for outpatient treatment at this time. Patient discharged home in stable and improved condition. ED Disposition - Plan for ED Patient: Disposition: Home or Assisted Living Diagnosis: Colitis, Abdominal pain Instructions: ED Diverticulitis Prescriptions: Amox/Clavulanate Tablet [Augmentin Tablet] 875 mg PO Q12H #20 tab Transmission Status: Received by [facility] traMADol [Ultram] 50 mg PO Q6H PRN PRN #20 tab PRN Reason: Pain Score 1-10/10 Transmission Status: Received by [facility] Ondansetron [Zofran Odt] 4 mg PO Q8H PRN PRN #10 tab PRN Reason: Nausea Transmission Status: Received by [facility] Referrals: Kayla Bro PA [Primary Care Provider] - Additional Instructions: Please return to the emergency room if you have worsening symptoms especially after 48 hours, high fever or cannot keep fluids down. Otherwise please follow-up with your primary care doctor within the next week. Print Language: Argentine
[2020-03-25 09:34] LABS: Absolute Lymphocyte Count 1.14 X10^3/uL (0.83-4.51); Basophil# 0.02 X10^3/uL; Basophil% 0.3 % (0-1); Eosinophil# 0.06 X10^3/uL; Eosinophils% 0.9 % (0-5); Hematocrit 37.6 % (37-47); Hemoglobin 12.1 g/dL (12.0-15.0); Lymphocyte # 1.14 X10^3/ul (4.0); Lymphocyte % 16.8 % (19-41); Mean Corp Hgb Conc 32.2 g/dL (32-36); Mean Corpuscular Hgb 28.5 pg (27.0-32.0); Mean Corpuscular Volume 88.5 fL (81-99); Mean Platelet Vol. 9.9 fl (6.2-12.0); Monocyte# 0.52 X10^3/uL; Monocyte% 7.7 % (0-10); NRBC Flagged by Analyzer 0 % (0-5); Neutrophil # 5.04 X10^3/uL (2.7-7.7); Neutrophil % 74.2 % (47-70); Platelet Count 254 K/mm3 (150-450); RBC Distribution Width CV 12.4 % (11.6-14.6); RBC Distribution Width SD 40.6 fl (35.1-43.9); Red Blood Count 4.25 M/mm3 (4.2-5.4); White Blood Count 6.8 K/mm3 (4.4-11.0)
[2020-03-25 09:52] LABS: ALB/GLOB Ratio 0.8 RATIO (0.9-2.4); AST(SGOT) 21 U/L (15-37); Alanine Aminotransfer ALT/SGPT 23 U/L (13-56); Albumin, Serum 3.4 g/dL (3.2-5.0); Alkaline Phosphatase 117 U/L (45-117); Anion Gap 4 (5-15); BUN 13 mg/dL (7-18); Calcium,Total 8.9 mg/dL (8.5-10.1); Chloride 108 mmol/L (98-107); Creatinine, Serum 0.76 mg/dL (0.55-1.02); EST Glomerular Filtration Rate 82 mL/min (>60); Est Glom Filt Rate - Afr Amer 99 mL/min (>60); Estimated Creatinine Clearance 62.26 ml/min; Globulin 4.1 g/dL (2.2-4.2); Glucose 100 mg/dL (74-106); Lipase 129 U/L (73-393); Potassium 3.3 mmol/L (3.5-5.1); Protein, Total 7.5 g/dL (6.4-8.2); Sodium Level 138 mmol/L (136-145)
[2020-03-25] MEDS: Morphine 4 MG/ML Syringe IV (09:57)
[2020-03-25] MEDS: Ondansetron 4 MG/2 ML Vial IV (09:57)
[2020-03-25] MEDS: 0.9% Normal Saline 1,000 ML 1000 ML IV (09:57)
--- NOTE | 2020-03-25 10:12 | CT_ITS ---
STUDY: CT ABDOMEN AND PELVIS WITH CONTRAST REASON FOR EXAM: Female, 59 years old. LEFT LOW ABDOMINAL PAIN. RADIATES TO LEG. KIDNEY STONE YEST. RADIATION DOSAGE (If Supplied By Facility): CTDIvol = ( 15.49 ) mGy, DLP = ( 1065.10 ) mGycm TECHNIQUE: Transaxial images were obtained from the dome of the diaphragm to the symphysis pubis without oral contrast. IV 100mL Isovue-300 was administered. Sagittal and coronal images were reconstructed. Individualized dose optimization techniques were used for this CT. COMPARISON: Comparison is made with prior examination dated 04/25/2019. FINDINGS: The visualized lung bases are unremarkable. The visualized portions of the heart are within normal limits. Normal liver. Normal gallbladder and extrahepatic biliary system. Normal spleen. Normal pancreas. Normal bilateral adrenal glands. Normal right kidney. Normal left kidney. Normal visualized stomach. Normal small intestine. Diffuse circumferential thickening of the wall of the colon as well as the posterolateral worse in the right in the colon to the region of the splenic flexure. This also evidence of mild degree of edematous changes of the left hemicolon. Findings are in keeping with a pancolitis. There is also evidence of sigmoid diverticulosis. The appendix is visualized and appears normal. Normal abdominal aorta. Normal inferior vena cava. Normal retroperitoneum. Normal urinary bladder. Phleboliths are seen in the pelvis. There is a small umbilical hernia containing fat. There are mild degenerative changes of the visualized lumbar spine. CT/Abdomen/Pelvis W IV Cont ONLY IMPRESSION: Findings in keeping with a pancolitis worse in the right hemicolon. Electronically Signed: Edgardo Christianson, at 10:57 EDT , Service support ,
[2020-03-25 10:17] VITALS: BP 150/81; PULSE 71; RESP 18; TEMP 37.2; O2SAT 99
--- NOTE | 2020-03-25 10:22 | RAD_ITS ---
STUDY: X-RAY CHEST REASON FOR EXAM: Female, 59 years old. Lower abd pain, hx of htn, asthma TECHNIQUE: PA and lateral views of the chest. COMPARISON: Comparison is made with prior study dated 09/09/2019. FINDINGS: The lungs are clear and expanded. Scattered calcified granulomas. There is no demonstrated pleural abnormality. Normal size heart. Normal mediastinum and diana. Normal visualized pulmonary arteries. Normal visualized aortic arch and descending thoracic aorta. Normal visualized thoracic spine. Normal visualized ribs, clavicles, and shoulders. There is no demonstrated abnormality of the visualized soft tissue structures of the upper abdomen. RAD/Chest 1 View (Portable) IMPRESSION: No acute abnormality is seen. Electronically Signed: Edgardo Christianson, at 10:46 EDT , Service support ,
[2020-03-25 11:00] VITALS: BP 150/81; PULSE 75; RESP 18; TEMP 37.2; O2SAT 95
[2020-03-25 11:03] LABS: Bacteria 0 SEEN /hpf (None Seen); Mucous, Urine 0 SEEN /hpf (<or=2+); Red Blood Cells-Urine 0 SEEN /hpf (0-5); White Blood Cells 0 SEEN /hpf (0-5)
[2020-03-25 11:08] LABS: Color, Urine Yellow (Yellow); Glucose, Dipstick Normal (Normal); Ketone-Dipstick Negative (Negative); Leukocyte Esterase-Dipstick Negative /ul (Negative); Nitrite-Dipstick Negative (Negative); Occult Blood-Urine Negative /ul (Negative); Protein-Dipstick Negative (Negative); Specific Gravity, Urine 1.005 (1.002-1.030); Urine Bilirubin Dipstick Negative (Negative); Urine Clarity Sl. Cloudy (Clear); Urine Urobilinogen Normal (Normal); Urine pH 6.5 (5.0 - 8.0)
[2020-03-25 11:16] LABS: Squamous Epithelial Cells - UA 0-5 SEEN /hpf (5-10)
[2020-03-25 11:55] VITALS: BP 135/63; PULSE 78; RESP 18; O2SAT 98
[2020-03-25] MEDS: Amox/Clavulanate 875 MG Tablet PO (12:03)
== END 2020-03-25 12:30 | disposition home or self-care (01) ==
PROVIDERS: Emergency Provider Emergency Medicine; PCP Physician Assistant
DX: K52.9 Noninfective gastroenteritis and colitis, unspecified (principal); R07.9 Chest pain, unspecified; I10 Essential (primary) hypertension; E11.9 Type 2 diabetes mellitus without complications; F17.200 Nicotine dependence, unspecified, uncomplicated; Z91.14 Patient's other noncompliance with medication regimen; Z87.442 Personal history of urinary calculi
CPT/HCPCS: 71045; 74177; 80053; 81001; 83690; 84484; 85025; 93005; 96361; 96374; 96375; 99284; J7030; Q9967; A4216; J2405

== ENCOUNTER 2021-05-05 12:37 | Emergency (ER) | payer SELFPAY ==
[2021-05-05 12:38] VITALS: BP 170/91; PULSE 95; RESP 18; TEMP 36.6; O2SAT 100; BMI 27.8
--- NOTE | 2021-05-05 14:08 | RAD_ITS ---
STUDY: X-RAY CHEST REASON FOR EXAM: Female, 60 years old. Left-sided chest pain. TECHNIQUE: AP and lateral views of the chest. COMPARISON: Comparison is made with prior study of 03/25/2020. FINDINGS: EKG electrodes are seen. There is a mild degree of vascular congestion and CHF. There is no demonstrated pleural abnormality. Normal size heart. Normal mediastinum and diana. Normal visualized pulmonary arteries. There is atherosclerotic tortuosity of the aortic arch and descending thoracic aorta. There are diffuse degenerative changes of the visualized thoracic spine. Normal visualized ribs, clavicles, and shoulders. There is no demonstrated abnormality of the visualized soft tissue structures of the upper abdomen. RAD/Chest PA and Lateral IMPRESSION: Mild degree of vascular congestion and CHF. Electronically Signed: Edgardo Christianson MD at 14:41 EST , Service support ,
--- NOTE | 2021-05-05 14:10 | EKG12_ITS ---
Test Reason : CP Blood Pressure : / mmHG Vent. Rate : 064 BPM Atrial Rate : 064 BPM P-R Int : 168 ms QRS Dur : 086 ms QT Int : 392 ms P-R-T Axes : 057 005 020 degrees QTc Int : 404 ms Normal sinus rhythm Nonspecific T wave abnormality Abnormal ECG Confirmed by LANCE DIAZ, LIZ ([id number]), photo editor MIHAELA MCKOY ([id number]) on 05/07/2021 8:51:29 AM Referred By: BHAVESH Confirmed By:LIZ LUCAS MD
--- NOTE | 2021-05-05 14:21 | EX.ED.DYSGE1 ---
HPI History of Present Illness Chief Complaint: Chest Other Narrative Narrative: Patient is a 60-year-old female who presents to the ER with multiple complaints. She states for the past 3 to 4 days she has had constant left-sided rib pain that is worse with motion. She also reports that she has noticed some left anterior chest wall pain with slight radiation to the arm. She denies any trauma prior to the pain beginning and she denies any nausea vomiting diaphoresis shortness of breath associated with this. She states that the pain is not resolved on its own and secondary to this comes in for evaluation [facility] Medical History HTN (hypertension) Lupus Home Medications gabapentin 300 mg PO TID 08/01/19 [History Last Taken Unknown] glipizide 5 mg PO DAILY 08/01/19 [History Last Taken Unknown] losartan 25 mg PO DAILY 08/01/19 [History Last Taken Unknown] albuterol sulfate 1 - 2 puff INHALATION Q4H PRN PRN #1 inhaler 09/09/19 [Rx Last Taken Unknown] cyclobenzaprine 10 mg PO TID PRN #20 tab 12/30/19 [Rx Last Taken Unknown] prednisone 40 mg PO DAILY #10 tab 12/30/19 [Rx Last Taken Unknown] amoxicillin-pot clavulanate 875 mg PO Q12H #20 tab 03/25/20 [Rx Last Taken Unknown] ondansetron 4 mg PO Q8H PRN PRN #10 tab 03/25/20 [Rx Last Taken Unknown] tramadol 50 mg PO Q6H PRN PRN #20 tab 03/25/20 [Rx Last Taken Unknown] oxycodone-acetaminophen [Percocet] 1 tab PO Q6H PRN 3 Days #12 tab 05/05/21 [Rx Last Taken Unknown] Allergy/AdvReac Type Severity Reaction Status Date / Time aspirin Allergy Angioedema Verified 05/05/21 13:49 ibuprofen AdvReac Other Verified 05/05/21 13:49 Social History (System 05/16/19 @ 12:22 by Sarina Bain) Smoking Status: Current every day smoker tobacco type: cigarettes ROS ROS ED Constitutional Constitutional ED: Denies chills or fever(s) ENT ENT ED: Denies sore throat Cardiovascular Cardiovascular: Reports chest pain; Denies palpitations or racing heartbeat Respiratory/Chest Respiratory/Chest: Denies cough or dyspnea Gastrointestinal Gastrointestinal: Denies abdominal pain, diarrhea, nausea or vomiting Genitourinary Genitourinary ED: Denies dysuria or hematuria Musculoskeletal Musculoskeletal: Reports back pain and other Details: Positive left rib pain ; Denies myalgias Integumentary Denies rash Neurologic Neurologic: Denies headache(s) Hematologic/Lymphatic Hematologic/Lymphatic: Denies easy bleeding or easy bruising EXAM Physical Exam Const Vital Signs: 05/05/21 12:38 05/05/21 16:04 05/05/21 18:12 Temperature 98 F Temperature Source Temporal Pulse Rate 95 76 81 Respiratory Rate 18 20 H 20 H Blood Pressure 170/91 H 164/64 H Blood Pressure Mean 117 97 Pulse Ox 100 100 99 Oxygen Delivery Method Room Air Room Air Room Air Positive well nourished and well developed General Appearance ED: well developed HEENT Reports moist mucous membranes Eyes PERRL and EOMs intact bilaterally Neck supple Chest Wall Chest Narrative: No bony deformity or crepitance of the chest wall but there is reproducible pain on palpation along the left posterior and lateral rib cage rib regions 4-7. No overlying soft tissue changes to suggest trauma or infection Resp normal respiratory effort and clear to auscultation bilaterally Cardio regular rate and regular rhythm GI normal to inspection, nondistended, normoactive bowel sounds, non-tender, non-distended and no masses GI Narrative: No voluntary guarding or rigidity no pulsatile mass Auscultation: normoactive bowel sounds Palpation: soft Extremity normal to inspection Extremity Narrative: No asymmetric edema no pitting edema negative Homans' sign bilaterally Neuro oriented x3 and CN's II-XII intact bilaterally Sensorium / Orientation: alert Motor Exam: strength 5/5 throughout Psych mental status grossly normal Skin no rashes or lesions noted MDM MDM MDM Narrative Medical decision making narrative: Patient presented to the ER with nonspecific chest pain that appeared to be more musculoskeletal in nature but with her risk factors I did elect to perform a basic cardiac work-up. As she also had some flank pain and history of kidney stone elected perform a urine sample. Initial and delta troponin were normal chest x-ray revealed no lung pathology does mild congestive heart failure but she was not hypoxic. Urine showed no blood to suggest kidney stone or signs of infection to suggest pyelonephritis. On reevaluation she is resting comfortably and therefore with negative work-up she is safe for discharge. Lab Data Attestation: I reviewed the patient's lab results. Labs: Laboratory Results - last 24 hr 05/05/21 05/05/21 05/05/21 14:30 14:30 14:30 WBC 6.3 RBC 4.23 Hgb 12.2 Hct 37.0 MCV 87.5 MCH 28.8 MCHC 33.0 RDW Std Deviation 40.0 RDW Coeff of [place] 12.5 Plt Count 292 MPV 10.5 Immature Gran % (Auto) 0.200 Neut % (Auto) 54.9 Lymph % (Auto) 36.5 Harper % (Auto) 6.2 Eos % (Auto) 1.9 Baso % (Auto) 0.3 Absolute Neuts (auto) 3.4 Absolute Lymphs (auto) 2.28 Nucleated RBC % 0 D-Dimer Quant (PE/DVT) 0.32 Sodium 140 Potassium 4.0 Chloride 107 Carbon Dioxide 30.0 Anion Gap 3 L BUN 15 Creatinine 0.78 Estim Creat Clear Calc 59.90 Est GFR (MDRD) Af Amer 96 Est GFR (MDRD) Non-Af 79 BUN/Creatinine Ratio 19.2 Glucose 104 Calcium 9.3 Troponin I High Sens 4 Urine Color Urine Clarity Urine pH Ur Specific [place] Urine Protein Urine Glucose (UA) Urine Ketones Urine Occult Blood Urine Nitrite Urine Bilirubin Urine Urobilinogen Ur Leukocyte Esterase Urine RBC Urine WBC Ur Squamous Epith Cells Urine Bacteria Urine Mucus 05/05/21 05/05/21 15:50 16:45 WBC RBC Hgb Hct MCV MCH MCHC RDW Std Deviation RDW Coeff of [place] Plt Count MPV Immature Gran % (Auto) Neut % (Auto) Lymph % (Auto) Harper % (Auto) Eos % (Auto) Baso % (Auto) Absolute Neuts (auto) Absolute Lymphs (auto) Nucleated RBC % D-Dimer Quant (PE/DVT) Sodium Potassium Chloride Carbon Dioxide Anion Gap BUN Creatinine Estim Creat Clear Calc Est GFR (MDRD) Af Amer Est GFR (MDRD) Non-Af BUN/Creatinine Ratio Glucose Calcium Troponin I High Sens 7 Urine Color Yellow Urine Clarity Clear Urine pH 8.0 Ur Specific [place] 1.015 Urine Protein Negative Urine Glucose (UA) Normal Urine Ketones Negative Urine Occult Blood Negative Urine Nitrite Negative Urine Bilirubin Negative Urine Urobilinogen Normal Ur Leukocyte Esterase Negative Urine RBC 0 SEEN Urine WBC 0 SEEN Ur Squamous Epith Cells 0 SEEN Urine Bacteria 0 SEEN Urine Mucus 0 SEEN Radiography Diagnostic Testing: Clinical Impression(s) from Imaging Studies Chest X-Ray 05/05/21 14:08 IMPRESSION: Mild degree of vascular congestion and CHF. Electronically Signed: Edgardo Christianson MD at 14:41 EST , Service support , Discharge Plan Triage Chief Complaint: Chest Other ED Provider: Michael Davis Dx/Rx/DC Orders Clinical Impression: Nonspecific chest pain Instructions: ED Chest Pain, Noncardiac Prescriptions: New oxycodone-acetaminophen [Percocet] 5-325 mg tablet 1 tab PO Q6H PRN (Reason: pain) 3 Days Qty: 12 RF: 0 No Action losartan 25 MG tablet 25 mg PO DAILY RF: 0 gabapentin 300 MG capsule 300 mg PO TID RF: 0 glipizide 5 MG tablet 5 mg PO DAILY RF: 0 albuterol sulfate 1 INHALER inhaler 1 - 2 puff inhalation Q4H PRN PRN (Reason: Wheezing) Qty: 1 RF: 0 cyclobenzaprine 10 MG tablet 10 mg PO TID PRN (Reason: Muscle Spasm) Qty: 20 RF: 0 prednisone 20 MG tablet 40 mg PO DAILY Qty: 10 RF: 0 amoxicillin-pot clavulanate 875 MG tablet 875 mg PO Q12H Qty: 20 RF: 0 tramadol 50 MG tablet 50 mg PO Q6H PRN PRN (Reason: Pain Score 1-10/10) Qty: 20 RF: 0 ondansetron 4 MG tablet 4 mg PO Q8H PRN PRN (Reason: Nausea) Qty: 10 RF: 0 Primary Care Provider: Care Physician,No Primary Referrals: Luis Villareal MD [STAFF PHYSICIAN] - 1 Week if not improving Care Physician,No Primary [Primary Care Provider] - Disposition Disposition: Home, Self Care
[2021-05-05] MEDS: Orphenadrine 60 MG/2 ML Ampul IV (14:34)
[2021-05-05 14:39] LABS: Absolute Lymphocyte Count 2.28 X10^3/uL (0.83-4.51); Absolute Neutrophil Count 3.4 X10^3/uL (2.0-7.7); Basophil# 0.02 X10^3/uL; Basophil% 0.3 % (0-1); Eosinophil# 0.12 X10^3/uL; Eosinophils% 1.9 % (0-5); Hemoglobin 12.2 g/dL (12.0-15.0); Lymphocyte # 2.28 X10^3/ul (0.83-4.51); Lymphocyte % 36.5 % (19-41); Mean Corpuscular Hgb 28.8 pg (27.0-32.0); Mean Corpuscular Volume 87.5 fL (81-99); Mean Platelet Vol. 10.5 fl (6.2-12.0); Monocyte# 0.39 X10^3/uL; Monocyte% 6.2 % (0-10); NRBC Flagged by Analyzer 0 % (0-5); Neutrophil # 3.43 X10^3/uL (2.7-7.7); Neutrophil % 54.9 % (47-70); Platelet Count 292 K/mm3 (150-450); RBC Distribution Width CV 12.5 % (11.6-14.6); Red Blood Count 4.23 M/mm3 (4.2-5.4); White Blood Count 6.3 K/mm3 (4.4-11.0)
[2021-05-05 14:50] LABS: D-Dimer Quantitative (DVT/PE) 0.32 FEU/ug/m (0.27-0.49)
[2021-05-05 15:01] LABS: Anion Gap 3 (5-15); BUN 15 mg/dL (7-18); BUN/Creat Ratio 19.2 RATIO (10-20); Calcium,Total 9.3 mg/dL (8.5-10.1); Chloride 107 mmol/L (98-107); Creatinine, Serum 0.78 mg/dL (0.55-1.02); EST Glomerular Filtration Rate 79 mL/min (>60); Est Glom Filt Rate - Afr Amer 96 mL/min (>60); Glucose 104 mg/dL (74-106); Sodium Level 140 mmol/L (136-145); Troponin-I HS 4 pg/mL (3.0-54.0)
[2021-05-05 15:58] LABS: Bacteria 0 SEEN /hpf (None Seen); Mucous, Urine 0 SEEN /hpf (<or=2+); Red Blood Cells-Urine 0 SEEN /hpf (0-5); Squamous Epithelial Cells - UA 0 SEEN /hpf (5-10); White Blood Cells 0 SEEN /hpf (0-5)
[2021-05-05 16:04] VITALS: PULSE 76; RESP 20; O2SAT 100
[2021-05-05] MEDS: Ondansetron 4 MG/2 ML Vial IV (16:05)
[2021-05-05] MEDS: Morphine 4 MG/ML Syringe IV (16:05)
[2021-05-05 16:12] LABS: Color, Urine Yellow (Yellow); Glucose, Dipstick Normal (Normal); Ketone-Dipstick Negative (Negative); Leukocyte Esterase-Dipstick Negative /ul (Negative); Nitrite-Dipstick Negative (Negative); Occult Blood-Urine Negative /ul (Negative); Protein-Dipstick Negative (Negative); Specific Gravity, Urine 1.015 (1.002-1.030); Urine Bilirubin Dipstick Negative (Negative); Urine Clarity Clear (Clear); Urine Urobilinogen Normal (Normal)
[2021-05-05 17:37] LABS: Troponin-I HS 7 pg/mL (3.0-54.0)
[2021-05-05 18:12] VITALS: BP 164/64; PULSE 81; RESP 20; O2SAT 99
[2021-05-05 18:58] VITALS: BP 124/66; PULSE 71; RESP 15; O2SAT 98
== END 2021-05-05 18:59 | disposition home or self-care (01) ==
PROVIDERS: Emergency Provider Emergency Medicine
DX: R07.89 Other chest pain (principal); I11.0 Hypertensive heart disease with heart failure; F17.210 Nicotine dependence, cigarettes, uncomplicated; Z79.899 Other long term (current) drug therapy
CPT/HCPCS: 71046; 80048; 81001; 84484; 85025; 85379; 93005; 96374; 96375; 99284; A4216; J2405

== ENCOUNTER 2021-05-28 16:41 | Emergency (ER) | payer SELFPAY ==
[2021-05-28] VITALS (7 sets, daily range): BP systolic 131–174; BP diastolic 65–136; PULSE 77–98; RESP 15–18; TEMP 36.9; O2SAT 95–100; BMI 29.2
--- NOTE | 2021-05-28 17:00 | EKG12_ITS ---
Test Reason : CP Blood Pressure : / mmHG Vent. Rate : 089 BPM Atrial Rate : 089 BPM P-R Int : 156 ms QRS Dur : 086 ms QT Int : 360 ms P-R-T Axes : 054 009 045 degrees QTc Int : 438 ms Normal sinus rhythm Normal ECG Confirmed by MANDI DIAZ, ANDREA ([id number]), newspaper or periodical editor MIHAELA MCKOY ([id number]) on 06/01/2021 9:50:14 AM Referred By: JOHN/CARMEN Confirmed By:GENESIS RAYMOND MD
--- NOTE | 2021-05-28 18:14 | US_ITS ---
INDICATION: PAIN-ABD EXAMINATION: US Abdomen RUQ (limited) TECHNIQUE: Mercado-scale and color Doppler imaging was performed of the abdomen. COMPARISON: None. Findings: The liver is diffusely homogenous with overall increased echogenicity. There is no evidence of contour nodularity. No focal hepatic mass is identified. The main portal vein is normal in size and patent demonstrating hepatopetal flow. The gallbladder is remarkable trace pericholecystic fluid, however is without evidence of wall thickening or stones. There is also a 4 mm gallbladder wall polyp. Sonographic Greer''s tenderness is not appreciated. There is no evidence of intrahepatic biliary ductal dilatation. The CBD is nondilated measuring 5 mm at the level of the nahomi hepatis. The visualized portions of the pancreas are unremarkable without evidence of focal or diffuse enlargement. Specifically, the tail is obscured by overlying bowel gas. Right kidney measures 10.5 cm in length. It is normal in echogenicity. No focal renal lesion is identified. There is no evidence of hydronephrosis. US/Gallbladder IMPRESSION: Hyperechoic liver without evidence of contour nodularity. Findings are nonspecific and may be consistent with sequelae of fatty infiltration or other forms of diffuse liver disease. No evidence of focal hepatic mass. Trace pericholecystic fluid but otherwise no other signs of acute cholecystitis. 4 mm gallbladder wall polyp. Electronically Signed: James Renae MD at 20:48 EST Tel , Service support ,
[2021-05-28] MEDS: 0.9% Normal Saline 1,000 ML 1000 ML IV (18:23)
--- NOTE | 2021-05-28 18:28 | CM.ED ---
SW Note NOELLE noted that patient has no insurance and no primary care physican (PCP) on registration information. SW spoke to patient's son, who speaks icelandic and acts as a nutritional services director. SW provided patient's son with self pay packet which includes information on [facility] and medicaid. No concerns or issues voiced. Plan: Financial information provided Magda COMER
[2021-05-28 18:51] LABS: Absolute Lymphocyte Count 1.91 X10^3/uL (0.83-4.51); Absolute Neutrophil Count 4.7 X10^3/uL (2.0-7.7); Basophil# 0.02 X10^3/uL; Basophil% 0.3 % (0-1); Eosinophil# 0.09 X10^3/uL; Eosinophils% 1.3 % (0-5); Hematocrit 37.3 % (37-47); Hemoglobin 12.5 g/dL (12.0-15.0); Lymphocyte # 1.91 X10^3/ul (0.83-4.51); Lymphocyte % 27.3 % (19-41); Mean Corp Hgb Conc 33.5 g/dL (32-36); Mean Corpuscular Hgb 29.1 pg (27.0-32.0); Mean Corpuscular Volume 86.9 fL (81-99); Mean Platelet Vol. 10.6 fl (6.2-12.0); Monocyte# 0.31 X10^3/uL; Monocyte% 4.4 % (0-10); NRBC Flagged by Analyzer 0 % (0-5); Neutrophil # 4.66 X10^3/uL (2.7-7.7); Neutrophil % 66.6 % (47-70); Platelet Count 291 K/mm3 (150-450); RBC Distribution Width CV 12.7 % (11.6-14.6); RBC Distribution Width SD 40.4 fl (35.1-43.9); Red Blood Count 4.29 M/mm3 (4.2-5.4)
[2021-05-28 19:16] LABS: ALB/GLOB Ratio 0.8 RATIO (0.9-2.4); AST(SGOT) 51 U/L (15-37); Alanine Aminotransfer ALT/SGPT 36 U/L (13-56); Albumin, Serum 3.3 g/dL (3.2-5.0); Alkaline Phosphatase 106 U/L (45-117); Anion Gap 8 (5-15); BUN 16 mg/dL (7-18); Calcium,Total 9.1 mg/dL (8.5-10.1); Chloride 109 mmol/L (98-107); Creatinine, Serum 0.89 mg/dL (0.55-1.02); EST Glomerular Filtration Rate 68 mL/min (>60); Est Glom Filt Rate - Afr Amer 83 mL/min (>60); Globulin 4.3 g/dL (2.2-4.2); Glucose 136 mg/dL (74-106); Lipase 209 U/L (73-393); Potassium 3.5 mmol/L (3.5-5.1); Protein, Total 7.6 g/dL (6.4-8.2); Sodium Level 142 mmol/L (136-145)
[2021-05-28 19:38] LABS: Bacteria 0 SEEN /hpf (None Seen); Mucous, Urine 0 SEEN /hpf (<or=2+); Red Blood Cells-Urine 0 SEEN /hpf (0-5); Squamous Epithelial Cells - UA 0 SEEN /hpf (5-10); White Blood Cells 0 SEEN /hpf (0-5)
[2021-05-28 19:39] LABS: Color, Urine Yellow (Yellow); Glucose, Dipstick Normal (Normal); Ketone-Dipstick Negative (Negative); Leukocyte Esterase-Dipstick Negative /ul (Negative); Nitrite-Dipstick Negative (Negative); Occult Blood-Urine Negative /ul (Negative); Protein-Dipstick Negative (Negative); Urine Bilirubin Dipstick Negative (Negative); Urine Clarity Clear (Clear); Urine Urobilinogen Normal (Normal)
--- NOTE | 2021-05-28 22:02 | EDS_ITS ---
HPI HPI - GI History of Present Illness Chief Complaint: Abd Pain Informant: patient Abdominal Pain/Flank Pain Onset: Today Context: Gradual Onset Timing: Continuous Quality: Sharp and Stabbing Location: RUQ Worsened by: Food Relieved by: Nothing Nausea/Vomiting/Emesis GI Symptom: Positive for Nausea and Vomiting Quality: Positive for Blood streaks; Negative for Coffee ground and Hematemesis Diarrhea/Melena/Hematochezia GI Symptom: Positive for Diarrhea; Negative for Melena and Hematochezia Associated Symptoms Associated Symptoms: Negative for Dysuria, Frequency and Hematuria Narrative Narrative: Patient presents with abdominal pain that began today. Patient states it is sharp and stabbing. Patient states it is over the right upper quadrant. Patient states she had some greasy food earlier today and her pain began approximately 2 hours after that. Patient admits to some nausea and vomiting. Patient states she did have some blood streaks in her initial emesis but this cleared. Patient denies any coffee-ground emesis. Patient admits to some diarrhea but denies any melena or hematochezia. Patient states she felt dizzy and lightheaded with the pain. Patient states her pain radiates into her back and up into her right chest. [facility] Medical History (Updated 05/28/21 @ 22:[address] Luis Carrillo, DO) HTN (hypertension) Lupus Type 2 diabetes mellitus Home Medications gabapentin 300 mg PO TID 08/01/19 [History Last Taken Unknown] glipizide 5 mg PO DAILY 08/01/19 [History Last Taken Unknown] losartan 25 mg PO DAILY 08/01/19 [History Last Taken Unknown] albuterol sulfate 1 - 2 puff INHALATION Q4H PRN PRN #1 inhaler 09/09/19 [Rx Last Taken Unknown] cyclobenzaprine 10 mg PO TID PRN #20 tab 12/30/19 [Rx Last Taken Unknown] prednisone 40 mg PO DAILY #10 tab 12/30/19 [Rx Last Taken Unknown] amoxicillin-pot clavulanate 875 mg PO Q12H #20 tab 03/25/20 [Rx Last Taken Unknown] ondansetron 4 mg PO Q8H PRN PRN #10 tab 03/25/20 [Rx Last Taken Unknown] tramadol 50 mg PO Q6H PRN PRN #20 tab 03/25/20 [Rx Last Taken Unknown] oxycodone-acetaminophen [Percocet] 1 tab PO Q6H PRN 3 Days #12 tab 05/05/21 [Rx Last Taken Unknown] hydrocodone-acetaminophen 1 tab PO Q6H PRN PRN 3 Days #10 tablet 05/28/21 [Rx Last Taken Unknown] Allergy/AdvReac Type Severity Reaction Status Date / Time aspirin Allergy Angioedema Verified 05/28/21 16:44 ibuprofen AdvReac Other Verified 05/28/21 16:44 Surgical History no surgical history no surgical history Social History Smoking Status: Current every day smoker tobacco type: cigarettes ROS ROS ED Constitutional Constitutional ED: Denies chills or fever(s) Eyes Eyes: Denies blurry vision or change in vision ENT ENT ED: Denies rhinorrhea or sore throat Cardiovascular Cardiovascular: Reports chest pain; Denies palpitations Respiratory/Chest Respiratory/Chest: Denies cough or dyspnea Gastrointestinal Gastrointestinal: Reports abdominal pain, nausea and vomiting Genitourinary Genitourinary ED: Denies dysuria or hematuria Musculoskeletal Musculoskeletal: Reports back pain and neck pain Integumentary Denies abscess or rash Neurologic Neurologic: Denies headache(s) or weakness Allergic/Immunologic Allergic/Immunologic ED: Denies mouth swelling or urticaria EXAM Physical Exam Const Vital Signs: 05/28/21 16:42 05/28/21 16:46 05/28/21 17:53 Temperature 98.5 F 98.5 F Temperature Source Temporal Temporal Pulse Rate 98 98 84 Respiratory Rate 18 18 18 Blood Pressure 174/136 H 174/136 H 131/74 H Blood Pressure Mean 148 148 93 Pulse Ox 95 95 99 Oxygen Delivery Method Room Air Room Air Room Air 05/28/21 18:15 05/28/21 19:15 05/28/21 20:15 Temperature Temperature Source Pulse Rate 82 84 77 Respiratory Rate 15 16 Blood Pressure 136/65 H Blood Pressure Mean 88 Pulse Ox 97 100 100 Oxygen Delivery Method Room Air Room Air 05/28/21 21:19 Temperature Temperature Source Pulse Rate Respiratory Rate Blood Pressure Blood Pressure Mean Pulse Ox 100 Oxygen Delivery Method Room Air Positive well nourished and well developed General Appearance ED: well developed HEENT Reports moist mucous membranes Neck supple and no JVD Resp normal respiratory effort and clear to auscultation bilaterally Cardio regular rate, regular rhythm and no murmurs GI normal to inspection, nondistended, normoactive bowel sounds and non-distended Auscultation: normoactive bowel sounds Palpation: soft and tender RUQ and Greer's sign; Negative for guarding or rebound tenderness present Extremity normal to inspection General Extremety ED: Negative for edema or tenderness General Extremity: Negative for edema Neuro oriented x3, CN's II-XII intact bilaterally and no sensory deficits noted Sensorium / Orientation: alert Motor Exam: strength 5/5 throughout Psych mental status grossly normal Skin no rashes or lesions noted MDM MDM MDM Narrative Medical decision making narrative: Patient was given IV fluids here. EKG was obtained. On my interpretation, it showed a normal sinus rhythm with a rate of 89. CO interval, QRS interval, and QTc intervals were all normal. [place] was normal. There are no acute ST or T wave changes. CBC was within normal limits. Comprehensive metabolic profile was essentially within normal limits. Lipase was normal. Urinalysis does not show any evidence of urinary tract infection. Right upper quadrant abdominal ultrasound was obtained. There was a polyp in the gallbladder. There is some mild pericholecystic fluid. There is no other evidence of acute cholecystitis. This was interpreted by the radiologist and reviewed by myself. Patient was advised of her findings. Patient was given a prescription for short course of [place]. Patient was instructed to follow-up with her primary care physician in 3 to 5 days for further evaluation. Patient and family understood and were agreeable with the plan. All questions were answered. Lab Data Labs: Laboratory Results - last 24 hr 05/28/21 05/28/21 05/28/21 17:30 17:30 19:28 WBC 7.0 RBC 4.29 Hgb 12.5 Hct 37.3 MCV 86.9 MCH 29.1 MCHC 33.5 RDW Std Deviation 40.4 RDW Coeff of [place] 12.7 Plt Count 291 MPV 10.6 Immature Gran % (Auto) 0.100 Neut % (Auto) 66.6 Lymph % (Auto) 27.3 [place] % (Auto) 4.4 Eos % (Auto) 1.3 Baso % (Auto) 0.3 Absolute Neuts (auto) 4.7 Absolute Lymphs (auto) 1.91 Nucleated RBC % 0 Sodium 142 Potassium 3.5 Chloride 109 H Carbon Dioxide 25.0 Anion Gap 8 BUN 16 Creatinine 0.89 Estim Creat Clear Calc 52.50 Est GFR (MDRD) Af Amer 83 Est GFR (MDRD) Non-Af 68 BUN/Creatinine Ratio 18.0 Glucose 136 H Calcium 9.1 Total Bilirubin 0.40 AST 51 H ALT 36 Alkaline Phosphatase 106 Total Protein 7.6 Albumin 3.3 Globulin 4.3 H Albumin/Globulin Ratio 0.8 L Lipase 209 Urine Color Yellow Urine Clarity Clear Urine pH 7.0 Ur Specific [place] 1.010 Urine Protein Negative Urine Glucose (UA) Normal Urine Ketones Negative Urine Occult Blood Negative Urine Nitrite Negative Urine Bilirubin Negative Urine Urobilinogen Normal Ur Leukocyte Esterase Negative Urine RBC 0 SEEN Urine WBC 0 SEEN Ur Squamous Epith Cells 0 SEEN Urine Bacteria 0 SEEN Urine Mucus 0 SEEN Radiography Diagnostic Testing: Clinical Impression(s) from Imaging Studies Gallbladder Ultrasound 05/28/21 18:14 IMPRESSION: Hyperechoic liver without evidence of contour nodularity. Findings are nonspecific and may be consistent with sequelae of fatty infiltration or other forms of diffuse liver disease. No evidence of focal hepatic mass. Trace pericholecystic fluid but otherwise no other signs of acute cholecystitis. 4 mm gallbladder wall polyp. Electronically Signed: James Renae MD at 20:48 EST Tel , Service support , EKG Initial EKG: Attestation: I personally reviewed and interpreted this EKG as follows: Interpretation: Sinus Rhythm (89) and No Acute Injury Pattern Prior EKG tracings: available for review Prior: Unchanged (05/05/2021) Discharge Plan Triage Chief Complaint: Abd Pain ED Provider: Luis Carrillo Dx/Rx/DC Orders Clinical Impression: Right upper quadrant abdominal pain Instructions: ED Abdominal Pain Unkn Cause Fem Prescriptions: New hydrocodone-acetaminophen [hydrocodone-acetaminophen] 1 TABLET tablet 1 tab PO Q6H PRN PRN (Reason: Pain) 3 Days Qty: 10 RF: 0 No Action losartan 25 MG tablet 25 mg PO DAILY RF: 0 gabapentin 300 MG capsule 300 mg PO TID RF: 0 glipizide 5 MG tablet 5 mg PO DAILY RF: 0 albuterol sulfate 1 INHALER inhaler 1 - 2 puff inhalation Q4H PRN PRN (Reason: Wheezing) Qty: 1 RF: 0 cyclobenzaprine 10 MG tablet 10 mg PO TID PRN (Reason: Muscle Spasm) Qty: 20 RF: 0 prednisone 20 MG tablet 40 mg PO DAILY Qty: 10 RF: 0 amoxicillin-pot clavulanate 875 MG tablet 875 mg PO Q12H Qty: 20 RF: 0 tramadol 50 MG tablet 50 mg PO Q6H PRN PRN (Reason: Pain Score 1-10/10) Qty: 20 RF: 0 ondansetron 4 MG tablet 4 mg PO Q8H PRN PRN (Reason: Nausea) Qty: 10 RF: 0 oxycodone-acetaminophen [Percocet] 5-325 mg tablet 1 tab PO Q6H PRN (Reason: pain) 3 Days Qty: 12 RF: 0 Primary Care Provider: Care Physician,No Primary Referrals: Katiana Richard MD [STAFF PHYSICIAN] - 3-5 Days Care Physician,No Primary [Primary Care Provider] - Print Language: Ukrainian Disposition Disposition: Home, Self Care
== END 2021-05-28 22:23 | disposition home or self-care (01) ==
PROVIDERS: Emergency Provider Emergency Medicine
DX: R10.11 Right upper quadrant pain (principal); I10 Essential (primary) hypertension; E11.9 Type 2 diabetes mellitus without complications; F17.210 Nicotine dependence, cigarettes, uncomplicated; Z79.84 Long term (current) use of oral hypoglycemic drugs; Z79.899 Other long term (current) drug therapy
CPT/HCPCS: 76705; 80053; 81001; 83690; 85025; 93005; 96360; 99284; A4216

== ENCOUNTER 2021-07-05 11:20 | Emergency (ER) | payer SELFPAY ==
[2021-07-05] VITALS (7 sets, daily range): BP systolic 117–154; BP diastolic 77–98; PULSE 68–91; RESP 16–18; TEMP 36.6; O2SAT 96–100; BMI 27.4
--- NOTE | 2021-07-05 11:39 | EDS_ITS ---
HPI History of Present Illness Chief Complaint: Shortness of Breath Detail of Chief Complaint: Cough, headache, body aches Informant: patient Narrative Narrative: Patient presents with symptoms x2 days. She has had cough and headache and body aches. No COVID exposures known. She is unsure if she has had the COVID-vaccine. She denies sick contacts. Mild shortness of breath. Patient has history of hypertension as well as history of lupus. Prior similar symptoms: No PFSH PFS Medical History (Updated 07/05/21 @ 16:[address] Rukhsana Mansfield DO) HTN (hypertension) Lupus Type 2 diabetes mellitus Home Medications gabapentin 300 mg PO TID 08/01/19 [History Last Taken Unknown] glipizide 5 mg PO DAILY 08/01/19 [History Last Taken Unknown] losartan 25 mg PO DAILY 08/01/19 [History Last Taken Unknown] albuterol sulfate 1 - 2 puff INHALATION Q4H PRN PRN #1 inhaler 09/09/19 [Rx Last Taken Unknown] cyclobenzaprine 10 mg PO TID PRN #20 tab 12/30/19 [Rx Last Taken Unknown] prednisone 40 mg PO DAILY #10 tab 12/30/19 [Rx Last Taken Unknown] amoxicillin-pot clavulanate 875 mg PO Q12H #20 tab 03/25/20 [Rx Last Taken Unknown] ondansetron 4 mg PO Q8H PRN PRN #10 tab 03/25/20 [Rx Last Taken Unknown] tramadol 50 mg PO Q6H PRN PRN #20 tab 03/25/20 [Rx Last Taken Unknown] oxycodone-acetaminophen [Percocet] 1 tab PO Q6H PRN 3 Days #12 tab 05/05/21 [Rx Last Taken Unknown] hydrocodone-acetaminophen 1 tab PO Q6H PRN PRN 3 Days #10 tablet 05/28/21 [Rx Last Taken Unknown] levofloxacin 750 mg PO DAILY #7 tab 07/05/21 [Rx Last Taken Unknown] Allergy/AdvReac Type Severity Reaction Status Date / Time aspirin Allergy Angioedema Verified 07/05/21 11:23 ibuprofen AdvReac Other Verified 07/05/21 11:23 Social History Smoking Status: Current every day smoker tobacco type: cigarettes ROS ROS ED Constitutional Constitutional ED: Reports systems reviewed and no addt'l complaints, except as documented, chills and fever(s); Denies body ache(s) or change in weight Eyes Eyes: Denies acute decrease in peripheral vision, change in vision, double vision or loss of vision ENT ENT ED: Reports none and sore throat; Denies ear pain, lip swelling, loss taste/smell, neck pain or otalgia Cardiovascular Cardiovascular: Reports none; Denies abdominal pain, chest pain with activity, leg edema, lightheadedness, palpitations, rapid heart rate or syncope Respiratory/Chest Respiratory/Chest: Reports none, cough and dyspnea; Denies change in mental status, dry cough, hemoptysis, shortness of breath at rest or shortness of breath with exertion Gastrointestinal Gastrointestinal: Reports none; Denies abdominal pain, change in stool character, diarrhea, hematemesis, hematochezia, melena, rectal bleeding or vomiting Genitourinary Genitourinary ED: Reports none; Denies abdominal discomfort, anuria, dysuria, genital pain or polyuria Musculoskeletal Musculoskeletal: Reports none and myalgias; Denies arthralgias, back pain, difficulty walking, extremity pain or muscle weakness Integumentary Reports none; Denies abscess or rash Neurologic Neurologic: Reports none and headache(s); Denies abnormal gait, confusion, focal weakness, frequent falls, loss of vision, numbness, paresthesias, radicular pain, vertigo or weakness Psychiatric Psychiatric: Reports systems reviewed and no addt'l complaints, except as documented and none; Denies behavioral changes, confusion, difficulty concentrating, hallucinations, suicidal ideation, tactile hallucinations or visual hallucinations Endocrine Endocrinology: Denies none, cold intolerance, excessive sweating, fatigue or heat intolerance Hematologic/Lymphatic Hematologic/Lymphatic: Reports none; Denies anemia, easy bleeding or easy bruising Allergic/Immunologic Allergic/Immunologic ED: Denies as per HPI, none, lip swelling, mouth swelling, throat swelling, tongue swelling or hives EXAM Physical Exam Const Vital Signs: 07/05/21 11:22 07/05/21 11:34 07/05/21 11:42 Temperature 97.8 F 97.8 F Temperature Source Temporal Temporal Pulse Rate 91 91 Respiratory Rate 18 18 Respiratory Effort Normal Respiratory Depth Normal Respiratory Pattern Normal Blood Pressure 154/98 H 154/98 H Blood Pressure Mean 116 116 Pulse Ox 96 96 Oxygen Delivery Method Room Air Room Air Room Air 07/05/21 12:26 07/05/21 13:23 07/05/21 15:49 Temperature 97.8 F Temperature Source Temporal Pulse Rate 91 75 81 Respiratory Rate 18 16 18 Respiratory Effort Respiratory Depth Respiratory Pattern Blood Pressure 154/98 H 117/81 H 139/87 H Blood Pressure Mean 116 93 104 Pulse Ox 96 98 97 Oxygen Delivery Method Room Air Room Air Room Air Positive well nourished and well developed General Appearance ED: well developed and NAD HEENT Reports TM's clear and moist mucous membranes normocephalic and atraumatic; Negative for trauma or tenderness Tympanic Membrane ED: Yes TM's clear Eyes PERRL and EOMs intact bilaterally General Eye ED: Negative for pale conjunctiva or scleral icterus Neck no lymphadenopathy, supple and no JVD General: Negative for tenderness Chest Wall inspection of chest normal and palpation of chest normal Chest: Negative for tenderness Resp normal respiratory effort and clear to auscultation bilaterally Effort and Inspection: Negative for respiratory distress or pain with movement Auscultation: Negative for rhonchi, wheezes or diminished lung sounds Cardio regular rate, regular rhythm, S1 normal heart sound, S2 normal heart sound and no murmurs Peripheral Pulses: pulses 2+ throughout GI normal to inspection, nondistended, normoactive bowel sounds, soft to palpation, non-tender, non-distended and no masses Back/Spine no CVA tenderness and no thoracic nor lumbar tenderness Extremity normal to inspection General Extremety ED: Negative for edema General Extremity: Negative for edema Neuro oriented x3, CN's II-XII intact bilaterally, no sensory deficits noted and gait normal Sensorium / Orientation: awake, alert, oriented to person, oriented to place and oriented to time Motor Exam: strength 5/5 throughout and strength abnormal Psych mental status grossly normal Skin no rashes or lesions noted and no wounds MDM MDM MDM Narrative Medical decision making narrative: Patient initially had a negative rapid COVID test however given symptomatology and early onset of symptoms I still felt clinically she could have COVID so I ordered a PCR test which also was negative for COVID-19. Patient also had an influenza screen that was negative. Chest x- ray could not rule out infiltrate in lower lobes therefore I will start her on Levaquin. Patient is hemodynamically stable and in no respiratory distress I do not feel any further work-up is indicated. She will be started on Levaquin and advised to return if increasing shortness of breath or condition should worsen anyway. Lab Data Attestation: I reviewed the patient's lab results. Labs: Laboratory Results - last 24 hr 07/05/21 12:19 COVID-19 (ANDREWS) Not Detected Radiography Diagnostic Testing: Clinical Impression(s) from Imaging Studies Chest X-Ray 07/05/21 12:26 IMPRESSION: Hypoventilatory changes. Prominent markings in the lower lungs. Early infiltrates cannot be excluded. Electronically Signed: Andrew Jung, at 13:05 EST Tel , Service support , 1 view chest x-ray obtained interpreted by myself as mild increased markings in both bases. Radiology was in agreement and they felt early infiltrate cannot be excluded. Discharge Plan Triage Chief Complaint: Shortness of Breath ED Provider: Rukhsana Mansfield Dx/Rx/DC Orders Clinical Impression: Pneumonia Instructions: ED Pneumonia (Adult) Prescriptions: New levofloxacin 750 mg tablet 750 mg PO DAILY Qty: 7 RF: 0 No Action losartan 25 MG tablet 25 mg PO DAILY RF: 0 gabapentin 300 MG capsule 300 mg PO TID RF: 0 glipizide 5 MG tablet 5 mg PO DAILY RF: 0 albuterol sulfate 1 INHALER inhaler 1 - 2 puff inhalation Q4H PRN PRN (Reason: Wheezing) Qty: 1 RF: 0 cyclobenzaprine 10 MG tablet 10 mg PO TID PRN (Reason: Muscle Spasm) Qty: 20 RF: 0 prednisone 20 MG tablet 40 mg PO DAILY Qty: 10 RF: 0 amoxicillin-pot clavulanate 875 MG tablet 875 mg PO Q12H Qty: 20 RF: 0 tramadol 50 MG tablet 50 mg PO Q6H PRN PRN (Reason: Pain Score 1-10/10) Qty: 20 RF: 0 ondansetron 4 MG tablet 4 mg PO Q8H PRN PRN (Reason: Nausea) Qty: 10 RF: 0 oxycodone-acetaminophen [Percocet] 5-325 mg tablet 1 tab PO Q6H PRN (Reason: pain) 3 Days Qty: 12 RF: 0 hydrocodone-acetaminophen [hydrocodone-acetaminophen] 1 TABLET tablet 1 tab PO Q6H PRN PRN (Reason: Pain) 3 Days Qty: 10 RF: 0 Primary Care Provider: Kayla Bro Referrals: Kayla Bro, PA [Primary Care Provider] - 3-5 Days Disposition Disposition: Home, Self Care
--- NOTE | 2021-07-05 12:26 | RAD_ITS ---
STUDY: X-RAY CHEST REASON FOR EXAM: Female, 60 years old. Cough. TECHNIQUE: Single AP portable view of the chest. COMPARISON: 05/05/2021. FINDINGS: Hypoventilatory changes. Prominent markings could reflect early infiltrates. There is no demonstrated pleural abnormality. There is borderline cardiomegaly. Normal mediastinum and diana. Normal visualized pulmonary arteries. There is atherosclerotic tortuosity of the aortic arch and descending thoracic aorta. There are degenerative changes of the visualized thoracic spine. Normal visualized ribs, clavicles, and shoulders. There is no demonstrated abnormality of the visualized soft tissue structures of the upper abdomen. RAD/Chest 1 View (Portable) IMPRESSION: Hypoventilatory changes. Prominent markings in the lower lungs. Early infiltrates cannot be excluded. Electronically Signed: Andrew Jung, at 13:05 EST Tel , Service support ,
[2021-07-05] MEDS: levoFLOXacin 750 MG Tablet PO (16:16)
== END 2021-07-05 16:17 | disposition home or self-care (01) ==
PROVIDERS: Emergency Provider Emergency Medicine; PCP Physician Assistant; Visit Provider Emergency Medicine
DX: J18.9 Pneumonia, unspecified organism (principal); E11.9 Type 2 diabetes mellitus without complications; I10 Essential (primary) hypertension; F17.210 Nicotine dependence, cigarettes, uncomplicated; Z79.84 Long term (current) use of oral hypoglycemic drugs; Z79.899 Other long term (current) drug therapy
CPT/HCPCS: 71045; 87426; 87635; 87804; 99283; U0003; U0005

== ENCOUNTER 2021-09-24 09:13 | Emergency (ER) | payer SELFPAY ==
[2021-09-24 09:19] VITALS: BP 156/94; PULSE 79; RESP 18; TEMP 36.6; O2SAT 99; BMI 28.6
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
[2021-09-24] MEDS: Acetaminophen 500 MG Tablet 1000 MG PO (10:49)
[2021-09-24 10:51] VITALS: BP 139/82; PULSE 88; RESP 24; O2SAT 100
== END 2021-09-24 12:02 | disposition home or self-care (01) ==
PROVIDERS: Emergency Provider Emergency Medicine; PCP Physician Assistant; Visit Provider Emergency Medicine
DX: S46.912A Strain of unspecified muscle, fascia and tendon at shoulder and upper arm level, left arm, initial encounter (principal); M32.9 Systemic lupus erythematosus, unspecified; E11.9 Type 2 diabetes mellitus without complications; S70.01XA Contusion of right hip, initial encounter; S80.00XA Contusion of unspecified knee, initial encounter; I10 Essential (primary) hypertension; V43.52XA Car driver injured in collision with other type car in traffic accident, initial encounter; Z79.899 Other long term (current) drug therapy; Z79.84 Long term (current) use of oral hypoglycemic drugs; Z87.891 Personal history of nicotine dependence; Y93.89 Activity, other specified; Y99.9 Unspecified external cause status; Y92.89 Other specified places as the place of occurrence of the external cause; M54.50 Low back pain, unspecified
CPT/HCPCS: 71045; 73030; 73502; 73560; 99283

== ENCOUNTER 2023-03-11 14:33 | Emergency (ER) | payer SELFPAY ==
[2023-03-11 14:35] VITALS: BP 153/81; PULSE 96; RESP 18; TEMP 36.4; O2SAT 99; BMI 26.2
--- NOTE | 2023-03-11 14:40 | RAD_ITS ---
STUDY: X-RAY - RIGHT KNEE REASON FOR EXAM: Female, 62 years old. Pain/swelling. No known injury. TECHNIQUE: 3 view(s) of the knee. COMPARISON: Comparison is made with prior study dated September 24, 2021. FINDINGS: Normal visualized distal femur. Normal visualized proximal tibia and fibula. Normal proximal tibiofibular articulation. Normal medial femorotibial compartment. Normal lateral femorotibial compartment. Normal patellofemoral articulation. The soft tissue structures are unremarkable. RAD/Knee 3 Views IMPRESSION: Normal x-ray examination of the knee. Electronically Signed: Edgardo Christianson MD at 14:55 EDT ,
--- NOTE | 2023-03-11 16:08 | EDS_ITS ---
HPI History of Present Illness Chief Complaint: Lower Extremity Injury Narrative Narrative: 62-year-old female presenting with nontraumatic knee pain on the right. Patient states has been ongoing for about 3 days. Patient describes the pain as all over the right knee. Patient is [place]an-speaking and did require machine coremaker phone. Patient denies any previous problems with the knee. She denies any direct trauma with the knee. She states has been walking with an antalgic gait and now has pain into the right thigh and the lower back. He has not discussed any of these problems with her primary care physician. She has been taking Tylenol at home without relief. She has not been alternating ice or heat. Been doing any stretching exercises. [facility] Medical History HTN (hypertension) Lupus Normal hysteroscopy Type 2 diabetes mellitus Home Medications gabapentin 300 mg capsule 300 mg PO TID 08/01/19 [History Last Taken Unknown] glipizide 5 mg tablet 5 mg PO DAILY 08/01/19 [History Last Taken Unknown] losartan 25 mg tablet 25 mg PO DAILY 08/01/19 [History Last Taken Unknown] albuterol sulfate 90 mcg/actuation aerosol inhaler 1 - 2 puff inhalation Q4H PRN PRN Wheezing ##1 09/09/19 [Rx Last Taken Unknown] amoxicillin 875 mg-potassium clavulanate 125 mg tablet 875 mg (0.875 x 875-125 mg) PO Q12H #20 tabs 03/25/20 [Rx Last Taken Unknown] ondansetron 4 mg disintegrating tablet 4 mg PO Q8H PRN PRN Nausea #10 tabs 03/25/20 [Rx Last Taken Unknown] hydrocodone-acetaminophen 5-325mg 5mg-325mg 1 tab PO Q6H PRN PRN Pain 3 days #10 TABLETS 05/28/21 [Rx Last Taken Unknown] cyclobenzaprine 10 mg tablet 10 mg PO TID PRN Muscle Spasm #20 TABLETS 03/11/23 [Rx Last Taken Unknown] Allergy/AdvReac Type Severity Reaction Status Date / Time aspirin Allergy Angioedema Verified 03/11/23 14:35 ibuprofen AdvReac Other Verified 03/11/23 14:35 Surgical History H/O: Social History Smoking Status: Former smoker ROS ROS ED Constitutional Constitutional ED: Denies chills, fever(s) or sweats Eyes Eyes: Denies blurry vision or change in vision ENT ENT ED: Denies ear pain or sore throat Cardiovascular Cardiovascular: Denies chest pain, palpitations or racing heartbeat Respiratory/Chest Respiratory/Chest: Denies cough, dyspnea or sputum Gastrointestinal Gastrointestinal: Denies abdominal pain, constipation, diarrhea, nausea or vomiting Genitourinary Genitourinary ED: Denies dysuria, hematuria or urinary frequency Musculoskeletal Musculoskeletal: Reports other Details: Pain, right lower back pain ; Denies arthralgias, myalgias or neck pain Integumentary Denies abscess, Abrasions or rash Neurologic Neurologic: Denies headache(s), paresthesias or weakness Psychiatric Psychiatric: Denies anxiety, depression, suicidal ideation or suicidal thoughts Endocrine Endocrinology: Denies polydipsia or polyuria EXAM Physical Exam Const Vital Signs: 03/11/23 14:35 Temperature 97.6 F L Temperature Source Temporal Pulse Rate 96 Respiratory Rate 18 Blood Pressure 153/81 H Blood Pressure Mean 105 Pulse Ox 99 Oxygen Delivery Method Room Air Positive well nourished General Appearance ED: NAD HEENT normocephalic and atraumatic Resp normal respiratory effort Cardio regular rate and regular rhythm Back/Spine Back/Spine Narrative: Right paraspinal musculature tenderness. Tenderness in the right lateral thigh which is mild. Extremity Extremity Narrative: Right knee: Pain elicited with valgus strain. No audible clicks or pops. No ligamentous laxity. No edema. Neuro oriented x3 and CN's II-XII intact bilaterally Sensorium / Orientation: alert Motor Exam: strength 5/5 throughout Psych mental status grossly normal MDM MDM MDM Narrative Medical decision making narrative: Patient presenting with nontraumatic right knee pain. Differential includes knee strain, meniscal tear. I obtained an x-ray of the right knee which on my interpretation shows no acute fracture or subluxation. Patient counseled to alternate Tylenol and ibuprofen. I suspect she might have slight meniscal tear given that she has pain with valgus strain and she has pain over the medial aspect of the left knee. I counseled her that this would not change treatment therapy. I believe she likely has a slight lumbar strain given that she is walking with antalgic gait. I offered her muscle relaxers for home. Improved precautions discussed. Impression: 1. Right knee strain 2. Lumbar strain Radiography Diagnostic Testing: Clinical Impression(s) from Imaging Studies Knee X-Ray 03/11/23 14:40 IMPRESSION: Normal x-ray examination of the knee. Electronically Signed: Edgardo Christianson MD at 14:55 EDT , Discharge Plan Triage Chief Complaint: Lower Extremity Injury ED Provider: Ronni Burger Dx/Rx/DC Orders Instructions: ED Back Spasm, No Trauma, ED Meniscal Injury Knee Poss Prescriptions: New cyclobenzaprine 10 mg tablet 10 mg PO TID PRN (Reason: Muscle Spasm) Qty: 20 0RF No Action losartan 25 MG tablet 25 mg PO DAILY Patient Comments: TAKE 1 TABLET EVERY DAY gabapentin 300 MG capsule 300 mg PO TID Patient Comments: Titrate to THREE TIMES DAILY glipizide 5 MG tablet 5 mg PO DAILY Patient Comments: TAKE 1 TABLET EVERY DAY albuterol sulfate 1 INHALER inhaler 1 - 2 puff inhalation Q4H PRN PRN (Reason: Wheezing) Qty: 1 0RF amoxicillin-pot clavulanate 875 MG tablet 875 mg PO Q12H Qty: 20 0RF ondansetron 4 MG tablet 4 mg PO Q8H PRN PRN (Reason: Nausea) Qty: 10 0RF hydrocodone-acetaminophen [hydrocodone-acetaminophen] 1 TABLET tablet 1 tab PO Q6H PRN PRN (Reason: Pain) 3 Days Qty: 10 0RF Primary Care Provider: Kayla Bro Referrals: Kayla Bro PA [Primary Care Provider] - Print Language: Zimbabwean Disposition Disposition: Home, Self Care Discharge Date/Time: 03/11/23 16:41
== END 2023-03-11 16:41 | disposition home or self-care (01) ==
PROVIDERS: Emergency Provider Student in an Organized Health Care Education/Training Program; PCP Physician Assistant; Visit Provider Student in an Organized Health Care Education/Training Program
DX: S83.91XA Sprain of unspecified site of right knee, initial encounter (principal); E11.9 Type 2 diabetes mellitus without complications; S39.012A Strain of muscle, fascia and tendon of lower back, initial encounter; Z87.891 Personal history of nicotine dependence; I10 Essential (primary) hypertension; X58.XXXA Exposure to other specified factors, initial encounter
CPT/HCPCS: 73562; 99282

== ENCOUNTER 2023-05-02 11:14 | Emergency (ER) | payer OTHER, SELFPAY ==
[2023-05-02 11:15] VITALS: BP 169/90; PULSE 82; RESP 14; TEMP 36.3; O2SAT 100; BMI 29.2
[2023-05-02 11:57] VITALS: BP 112/58; PULSE 106; RESP 16; O2SAT 98
--- NOTE | 2023-05-02 12:24 | EDS_ITS ---
HPI <PAZ Caballero - Last Filed: 05/02/23 14:53> History of Present Illness Chief Complaint: Back Narrative Narrative: Patient presenting today due to pain to her bilateral elbows, upper and lower back, and neck that she has had since Tuesday. 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 She reports that she does suffer with chronic back pain that is not worse. She denies any direct trauma to her back, fever, chills, bowel/bladder incontinence, saddle paresthesia, and urinary symptoms. Patient is Citizen [place]-speaking and an clerical supervisor service was used for this visit. PMH includes hypertension and diabetes. She reports that she has been taking [id number] painkillers at home but she is unsure what they are. PFSH <PAZ Caballero - Last Filed: 05/02/23 14:53> PFS Medical History HTN (hypertension) Lupus Normal hysteroscopy Type 2 diabetes mellitus Home Medications gabapentin 300 mg capsule 300 mg PO TID 08/01/19 [History Last Taken Unknown] glipizide 5 mg tablet 5 mg PO DAILY 08/01/19 [History Last Taken Unknown] losartan 25 mg tablet 25 mg PO DAILY 08/01/19 [History Last Taken Unknown] albuterol sulfate 90 mcg/actuation aerosol inhaler 1 - 2 puff inhalation Q4H PRN PRN Wheezing ##1 09/09/19 [Rx Last Taken Unknown] amoxicillin 875 mg-potassium clavulanate 125 mg tablet 875 mg (0.875 x 875-125 mg) PO Q12H #20 tabs 03/25/20 [Rx Last Taken Unknown] ondansetron 4 mg disintegrating tablet 4 mg PO Q8H PRN PRN Nausea #10 tabs 03/25/20 [Rx Last Taken Unknown] hydrocodone-acetaminophen 5-325mg 5mg-325mg 1 tab PO Q6H PRN PRN Pain 3 days #10 TABLETS 05/28/21 [Rx Last Taken Unknown] cyclobenzaprine 10 mg tablet 10 mg PO TID PRN Muscle Spasm #20 TABLETS 03/11/23 [Rx Last Taken Unknown] orphenadrine citrate 100 mg tablet,extended release 100 mg PO BID 5 days #10 tabs 05/02/23 [Rx Last Taken Unknown] Allergy/AdvReac Type Severity Reaction Status Date / Time aspirin Allergy Angioedema Verified 05/02/23 11:16 ibuprofen AdvReac Other Verified 05/02/23 11:16 Surgical History H/O: Social History Smoking Status: Former smoker ROS <PAZ Caballero - Last Filed: 05/02/23 14:53> ROS ED Constitutional Constitutional ED: Denies chills or fever(s) Cardiovascular Cardiovascular: Denies chest pain Respiratory/Chest Respiratory/Chest: Denies cough or dyspnea Gastrointestinal Gastrointestinal: Denies abdominal pain, nausea or vomiting Genitourinary Genitourinary ED: Denies dysuria, hematuria or urinary urgency Musculoskeletal Musculoskeletal: Reports arthralgias, back pain, myalgias and neck pain Integumentary Denies rash Neurologic Neurologic: Denies paresthesias or weakness EXAM <PAZ Caballero - Last Filed: 05/02/23 14:53> Physical Exam Const Vital Signs: 05/02/23 11:15 05/02/23 11:57 Temperature 97.3 F L Temperature Source Temporal Pulse Rate 82 106 H Respiratory Rate 14 16 Blood Pressure 169/90 H 112/58 L Blood Pressure Mean 116 76 Pulse Ox 100 98 Oxygen Delivery Method Room Air Positive well nourished, well developed and no apparent distress General Appearance ED: well developed HEENT Reports normocephalic and head/scalp atraumatic Mouth ED: Yes moist mucous membranes normal Eyes PERRL and EOMs intact bilaterally Neck full ROM and supple Neck Narrative: Left and right trapezius tenderness to palpation, no midline cervical tenderness mild left and right paracervical tenderness to palpation Chest Wall inspection of chest normal Resp normal respiratory effort and clear to auscultation bilaterally Cardio regular rate and regular rhythm GI soft to palpation, non-tender, non-distended and no masses Back/Spine normal ROM and normal to inspection Back/Spine Narrative: Left and right thoracic and lumbar paraspinal tenderness to palpation, no midline thoracic or lumbar tenderness. Extremity normal to inspection and full ROM Extremity Narrative: Pain to palpation to the bilateral range of motion, no edema or erythema, no signs of septic joint or infection, no effusion Neuro oriented x3, CN's II-XII intact bilaterally, moves all extremities, no focal motor deficits and no sensory deficits noted Neuro Narrative: Intact L2-S1 sensation, strength 5 out of 5 upper and lower extremities Sensorium / Orientation: awake and alert Psych mental status grossly normal and thought process normal Skin no rashes or lesions noted and no wounds <Dr. Ronni Burger, - Last Filed: 05/02/23 15:25> Physical Exam Const Vital Signs: 05/02/23 11:15 05/02/23 11:57 Temperature 97.3 F L Temperature Source Temporal Pulse Rate 82 106 H Respiratory Rate 14 16 Blood Pressure 169/90 H 112/58 L Blood Pressure Mean 116 76 Pulse Ox 100 98 Oxygen Delivery Method Room Air [facility] <PAZ Caballero - Last Filed: 05/02/23 14:53> [facility] Narrative Medical decision making narrative: Patient presenting due to generalized pain to her back, neck, and elbows. 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 No direct injury. She is well-appearing and in no acute distress. She has tenderness to palpation along her paraspinal muscles in her thoracic and lumbar spine, no midline tenderness in her back, no midline neck tenderness, no need for imaging at this time. She does have a history of hypertension and diabetes, she is not sure if she has any kidney disease or not and does not have any recent labs, we will hold off on NSAIDs at this time and she will be given Tylenol. She will be given a prescription for Norflex and is to take Tylenol at home as needed for her pain. She is to f ollow-up with her PCP and will be discharged home in stable condition, she is comfortable with plan. <Dr. Ronni Burger DO - Last Filed: 05/02/23 15:25> [facility] Narrative Medical decision making narrative: Patient presenting due to generalized pain to her back, neck, and elbows. 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 No direct injury. She is well-appearing and in no acute distress. She has tenderness to palpation along her paraspinal muscles in her thoracic and lumbar spine, no midline tenderness in her back, no midline neck tenderness, no need for imaging at this time. She does have a history of hypertension and diabetes, she is not sure if she has any kidney disease or not and does not have any recent labs, we will hold off on NSAIDs at this time and she will be given Tylenol. She will be given a prescription for Norflex and is to take Tylenol at home as needed for her pain. She is to follow-up with her PCP and will be discharged home in stable condition, she is comfortable with plan. This patient was seen with a PA/NET MAKER Individually assessed they patient including history and physical. I have reviewed everything on the chart that is available and agree with the documentation provided by the PA/NET MAKER including discussion about the assessment, treatment plan, discussion, and return precautions. Patient with right thoracic/lumbar paraspinal musculature tenderness from lifting. She denies paresthesias. P patient appears to have allergy to ibuprofen. She was given Tylenol. Since he is driving she will be given a prescription for muscle relaxers. No believe she has any imaging. It appears to be all musculoskeletal. Patient amenable to this. Parts Product Analyst phone used throughout entire visit due to patient speaking Citizen [place] only. Discharge Plan Triage Chief Complaint: Back ED Midlevel Provider: Raven Fajardo ED Provider: Ronni Burger Dx/Rx/DC Orders Clinical Impression: Myalgia, Back strain Instructions: ED Back Sprain/Strain Prescriptions: New orphenadrine citrate 100 mg tablet extended release 100 mg PO BID 5 Days Qty: 10 0RF No Action losartan 25 MG tablet 25 mg PO DAILY Patient Comments: TAKE 1 TABLET EVERY DAY gabapentin 300 MG capsule 300 mg PO TID Patient Comments: Titrate to THREE TIMES DAILY glipizide 5 MG tablet 5 mg PO DAILY Patient Comments: TAKE 1 TABLET EVERY DAY albuterol sulfate 1 INHALER inhaler 1 - 2 puff inhalation Q4H PRN PRN (Reason: Wheezing) Qty: 1 0RF amoxicillin-pot clavulanate 875 MG tablet 875 mg PO Q12H Qty: 20 0RF ondansetron 4 MG tablet 4 mg PO Q8H PRN PRN (Reason: Nausea) Qty: 10 0RF hydrocodone-acetaminophen [hydrocodone-acetaminophen] 1 TABLET tablet 1 tab PO Q6H PRN PRN (Reason: Pain) 3 Days Qty: 10 0RF cyclobenzaprine 10 mg tablet 10 mg PO TID PRN (Reason: Muscle Spasm) Qty: 20 0RF Primary Care Provider: Kayla Bro Referrals: Kayla Bro, PA [Primary Care Provider] - 3-5 Days Print Language: Citizen [place] Disposition Disposition: Home, Self Care Discharge Date/Time: 05/02/23 14:30
[2023-05-02] MEDS: Acetaminophen 325 MG Tablet 650 MG PO (13:07)
== END 2023-05-02 14:30 | disposition home or self-care (01) ==
LOC: ED 13:51
PROVIDERS: Emergency Provider Student in an Organized Health Care Education/Training Program; PCP Physician Assistant; Visit Provider Student in an Organized Health Care Education/Training Program
DX: M79.10 Myalgia, unspecified site (principal); E11.9 Type 2 diabetes mellitus without complications; S39.012A Strain of muscle, fascia and tendon of lower back, initial encounter; I10 Essential (primary) hypertension; Z87.891 Personal history of nicotine dependence; X50.9XXA Other and unspecified overexertion or strenuous movements or postures, initial encounter; Y93.89 Activity, other specified; Y92.89 Other specified places as the place of occurrence of the external cause; Z79.899 Other long term (current) drug therapy
CPT/HCPCS: 99282

== ENCOUNTER 2023-06-02 15:08 | Emergency (ER) | payer OTHER, SELFPAY ==
[2023-06-02 15:10] VITALS: BP 169/88; PULSE 90; RESP 14; TEMP 36.2; O2SAT 100
[2023-06-02 18:32] VITALS: BMI 37.3
[2023-06-02 18:47] VITALS: BP 199/106; PULSE 90; RESP 16; O2SAT 100
--- NOTE | 2023-06-02 20:03 | RAD_ITS ---
STUDY: X-RAY - RIGHT FOOT CLINICAL: Female, 62 years old. Trauma TECHNIQUE: 3 view(s) of the foot. COMPARISON: None. FINDINGS: Normal talus, calcaneus, and tarsal bones. Small plantar calcaneal enthesophyte. Unusual appearance to the first second and third tarsometatarsal joints and injury cannot be excluded. Correlation with CT would be useful. Normal metatarsi. Normal metatarsophalangeal joint of the great toe. Normal tibial and fibular sesamoid bones. Normal interphalangeal joint of the great toe. Normal phalanges of the great toe. Normal second through fifth metatarsophalangeal joints. Normal interphalangeal joints and phalanges of the lesser toes. The soft tissue structures are unremarkable. RAD/Foot min 3 Views IMPRESSION: Unusual appearance to the first second and third tarsometatarsal joints and correlation with CT would be useful to exclude Lisfranc fracture dislocation. Electronically Signed: Rupesh Fenton MD at 20:59 EST ,
--- NOTE | 2023-06-02 20:03 | RAD_ITS ---
STUDY: X-RAY - RIGHT ANKLE REASON FOR EXAM: Female, 62 years old. Trauma TECHNIQUE: 3 view(s) of the ankle. COMPARISON: None. FINDINGS: Normal visualized distal tibia and fibula. Normal medial and lateral malleoli. Normal tibiotalar articulation and ankle mortise. Normal visualized talus and calcaneus. Small plantar calcaneal enthesophyte. The visualized subtalar, talonavicular, calcaneocuboid and tarsal articulations are normal. The soft tissue structures are unremarkable. RAD/Ankle min 3 Views IMPRESSION: Normal x-ray examination of the ankle. Electronically Signed: Rupesh Fenton MD at 21:00 EST ,
--- NOTE | 2023-06-02 20:12 | RAD_ITS ---
STUDY: X-RAY - PELVIS AND RIGHT HIP REASON FOR EXAM: Female, 62 years old. Trauma TECHNIQUE: 3 views of the pelvis and hip. COMPARISON: 09/24/2021 FINDINGS: There is a non-specific bowel gas pattern. Normal visualized soft tissue structures. Normal bilateral iliac wings, sacroiliac joints and visualized sacrum. Normal bilateral superior and inferior pubic rami. Normal pubic symphysis. Normal bilateral ischial tuberosities. Normal visualized femoral head. Normal acetabulum. There is mild articular joint space narrowing of the hip. RAD/HIP, UNI W/ Pelvis 2-3 Views IMPRESSION: 1. No acute fracture or dislocation. 2. Mild arthrosis. Electronically Signed: Rupesh Fenton MD at 20:56 EST ,
--- NOTE | 2023-06-02 20:50 | EDS_ITS ---
HPI History of Present Illness Chief Complaint: Fall Informant: patient and other (sap portal consultant) Narrative Narrative: History is obtained through sap portal consultant. Patient presents primarily with right foot pain. Patient states she was walking out of the door. She had stepped down. A pitbull jumped at her so she jumped back in the doorway. She hit the side of her right foot and ankle on the door. She never fell to the ground. I asked her this twice. There was never a fall. She has primarily right foot pain. But she also has some soreness in her right lower back and right buttock she thinks she twisted it. She does have a history of fibromyalgia. She states she takes Naprosyn. [facility] Medical History HTN (hypertension) Lupus Normal hysteroscopy Type 2 diabetes mellitus Home Medications glipizide 5 mg tablet 5 mg PO DAILY 08/01/19 [History Last Taken Unknown] cyclobenzaprine 10 mg tablet 10 mg PO TID PRN Muscle Spasm #20 TABLETS 03/11/23 [Rx Last Taken Unknown] Allergy/AdvReac Type Severity Reaction Status Date / Time aspirin Allergy Angioedema Verified 06/02/23 15:10 ibuprofen AdvReac Other Verified 06/02/23 15:10 Surgical History H/O: Social History Smoking Status: Former smoker ROS ROS ED Constitutional Constitutional ED: Denies fever(s) Cardiovascular Cardiovascular: Denies chest pain Respiratory/Chest Respiratory/Chest: Denies cough Gastrointestinal Gastrointestinal: Denies nausea or vomiting Musculoskeletal Musculoskeletal: Reports arthralgias, back pain and myalgias; Denies neck pain Integumentary Denies abscess, Abrasions or rash Neurologic Neurologic: Denies paresthesias or weakness Hematologic/Lymphatic Hematologic/Lymphatic: Reports other Details: No anticoagulants taken ; Denies easy bleeding or easy bruising Allergic/Immunologic Allergic/Immunologic ED: Denies urticaria EXAM Physical Exam Narrative Exam Narrative: General: Patient awake alert laying comfortably in bed. HEENT: No sign of trauma. Mucous membranes are moist. Neck is supple no tenderness or pain with motion Lungs are clear bilaterally and saturations are normal at 100% on room air showing no hypoxia. No chest wall tenderness. Heart is regular. Peripheral pulses including the right lower extremity are normal. Abdomen is obese but benign. Back does have some tenderness mostly in the sciatic notch in the right buttock. It is not even so much is the lower paraspinals as a sciatic notch. But her leg is not shortened or rotated. No greater trochanteric tenderness. No inguinal tenderness. She never fell or hit the area. Extremities do not show any edema or swelling shortening or deformity. She does have some tenderness to the lateral aspect of the foot near the fifth metatarsal but also the lateral malleolus. But there is no swelling. Her ankle is stable to inversion eversion and drawer. Const Vital Signs: 06/02/23 15:10 06/02/23 18:44 06/02/23 18:47 Temperature 97.2 F L Temperature Source Temporal Pulse Rate 90 90 Respiratory Rate 14 16 Respiratory Effort Normal Non-Labored Respiratory Depth Normal Respiratory Pattern Normal Blood Pressure 169/88 H 199/106 H Blood Pressure Mean 115 137 Pulse Ox 100 100 Oxygen Delivery Method Room Air Room Air Room Air MDM MDM MDM Narrative Medical decision making narrative: My independent interpretation of the patient's ankle x-ray and foot x-ray is negative. My independent interpretation of her hip x-ray is also negative for acute fracture. This was added because she was pointing to the hip with radiology although this is really buttock and sciatic area pain. Final reading is negative except there is a pustular and of a slight unusual appearance to the first second and third metatarsal joints on the foot x-ray. They were questioning possibility of a Lisfranc's fracture. But this patient does not have tenderness in that webspace. In fact I go back and examined her foot and she is ticklish. It is not tender. It is not swollen. Her mechanism was that she hit her foot on a step while she was stepping backwards. She did not fall. She did not land on her foot. There is no mechanism that would support an acute Lisfranc fracture and I do not think the slight unusual appearance justifies CT imaging at this time. Patient has a negative online prescribing report. I will give her something for pain here. She uses Naprosyn at home for pain and I think that ice and elevation is appropriate. She should follow-up. Radiography Diagnostic Testing: Clinical Impression(s) from Imaging Studies Ankle X-Ray 06/02/23 20:03 IMPRESSION: Normal x-ray examination of the ankle. Electronically Signed: Rupesh Fenton MD at 21:00 EST Reading Location ID and State: [facility] / [employer] , Service support , Foot X-Ray 06/02/23 20:03 IMPRESSION: Unusual appearance to the first second and third tarsometatarsal joints and correlation with CT would be useful to exclude Lisfranc fracture dislocation. Electronically Signed: Rupesh Fenton MD at 20:59 EST Reading Location ID and State: [employer] / [employer] , Service support , Hip/Pelvis X-Ray 06/02/23 20:12 IMPRESSION: 1. No acute fracture or dislocation. 2. Mild arthrosis. Electronically Signed: Rupesh Fenton MD at 20:56 EST Reading Location ID and State: [id number] / [employer] , Service support , Discharge Plan Triage Chief Complaint: Fall ED Provider: Rigo Pickett Dx/Rx/DC Orders Clinical Impression: Right sided sciatica, Lumbar strain, Contusion of foot, right Instructions: ED Foot Contusion, ED Sciatica Prescriptions: No Action glipizide 5 MG tablet 5 mg PO DAILY Patient Comments: TAKE 1 TABLET EVERY DAY cyclobenzaprine 10 mg tablet 10 mg PO TID PRN (Reason: Muscle Spasm) Qty: 20 0RF Primary Care Provider: Kayla Bro Referrals: Kayla Bro, PA [Primary Care Provider] - 3-5 Days if not improving Print Language: [place] Disposition Disposition: Home, Self Care
[2023-06-02] MEDS: traMADol 50 MG Tablet PO (22:08)
== END 2023-06-02 22:22 | disposition home or self-care (01) ==
PROVIDERS: Emergency Provider Emergency Medicine; PCP Physician Assistant; Visit Provider Emergency Medicine
DX: M54.31 Sciatica, right side (principal); E11.9 Type 2 diabetes mellitus without complications; S39.012A Strain of muscle, fascia and tendon of lower back, initial encounter; S90.31XA Contusion of right foot, initial encounter; Z87.891 Personal history of nicotine dependence; Z79.84 Long term (current) use of oral hypoglycemic drugs; W19.XXXA Unspecified fall, initial encounter
CPT/HCPCS: 73502; 73610; 73630; 99282; J2405

== ENCOUNTER 2023-06-09 15:22 | Emergency (ER) | payer OTHER, SELFPAY ==
[2023-06-09 15:23] VITALS: BP 202/101; PULSE 85; RESP 16; TEMP 36.7; O2SAT 100; BMI 34.0
[2023-06-09 15:33] VITALS: BP 179/89; PULSE 91; RESP 18; O2SAT 100
[2023-06-09 15:39] VITALS: O2SAT 100
--- NOTE | 2023-06-09 15:39 | EX.ED.DYSGE1 ---
HPI History of Present Illness Chief Complaint: Hypertension Informant: patient and other (Audio and visual interpretation service.) Narrative Narrative: Patient presents with chest palpitations and warm feeling. History is obtained by using a interpretation service. Patient states that somewhere approximately 10 or 1030 this morning she started getting a feeling of palpitations. She has a warm feeling that comes over her but no diaphoresis. She might have some mild dyspnea. No cough. No nausea or vomiting. It sounds like she has had this before. She used to be on high blood pressure meds but lost her physician and is no longer on them. It sounds like she may have been on enalapril. She has not seen a private physician in at least couple years. She has no history of heart disease. She smoked many many years ago but quit. No primary relative history of heart disease although her father had high blood pressure and diabetes and her mother had strokes. There is been no recent travel surgery or immobilization. [facility] Medical History (Updated 06/09/23 @ 17:[address] Rigo Pickett MD) HTN (hypertension) Lupus Type 2 diabetes mellitus Home Medications glipizide 5 mg tablet 5 mg PO DAILY 08/01/19 [History Last Taken Unknown] cyclobenzaprine 10 mg tablet 10 mg PO TID PRN Muscle Spasm #20 TABLETS 03/11/23 [Rx Last Taken Unknown] enalapril maleate 5 mg tablet 5 mg PO DAILY #30 tabs 06/09/23 [Rx Last Taken Unknown] Allergy/AdvReac Type Severity Reaction Status Date / Time aspirin Allergy Angioedema Verified 06/09/23 15:23 ibuprofen AdvReac Other Verified 06/09/23 15:23 Surgical History H/O: Normal hysteroscopy Social History Smoking Status: Former smoker ROS ROS ED ROS Narrative A complete review of systems was performed and is negative except as documented in the history of present illness. Some specific details below. Constitutional: No recent fevers or chills. EYE: No discharge, visual complaints, or pain. ENT: No difficulty swallowing. No swelling. No pain. No reflux symptoms. CV: See history of present illness. Respiratory: See history of present illness. No coughing. It sounds like she might have been slightly short of breath with this episodes today. GI: No abdominal pain. No nausea vomiting diarrhea. No blood in stool. : No frequency dysuria or hematuria. Musculoskeletal: No pains. No swelling. Skin: No rash. Nondiaphoretic. Neuro: No weakness or numbness. Endocrine: No polyuria or polydipsia. EXAM Physical Exam Narrative Exam Narrative: CONSTITUTIONAL: Patient is nontoxic in appearance. The patient looks comfortable. Work of breathing looks normal. HEENT: No notable trauma. Mucous membranes moist. No sinus tenderness. No indication of pain with swallowing. EYES: No conjunctival injection. No proptosis. No pallor. NECK:No JVD. No stridor. CARDIOVASCULAR: Regular rate. Regular rhythm. No notable murmur. No JVD. Normal pulses that are equal x 4. No muffled heart tones. RESPIRATORY: No respiratory distress. Breathing is unlabored. No wheezes. No rhonchi. No rales. No pain with a deep breath. No chest wall tenderness. Saturations are normal to 100% on room air showing no hypoxia. GASTROINTESTINAL: Not distended. Bowel sounds are normal. No tenderness. No guarding. No rebound. No palpable mass. No bruit is heard. GENITOURINARY: No tenderness over the bladder. No CVA tenderness. MUSCULOSKELETAL: Atraumatic. No peripheral edema. No cord. No tenderness along the deep venous system. No asymmetry. No distended veins. NEUROLOGICAL: Patient is alert and appropriate. No focal deficit noted. SKIN: No noted rashes. No diaphoresis. PSYCHIATRIC: Patient is calm. Mood is appropriate. Const Vital Signs: 06/09/23 15:23 06/09/23 15:33 06/09/23 15:34 Temperature 98.0 F Temperature Source Oral Pulse Rate 85 91 Respiratory Rate 16 18 Respiratory Effort Normal Respiratory Pattern Normal Blood Pressure 202/101 H 179/89 H Blood Pressure Mean 134 119 Pulse Ox 100 100 Oxygen Delivery Method Room Air Room Air 06/09/23 15:39 Temperature Temperature Source Pulse Rate Respiratory Rate Respiratory Effort Respiratory Pattern Blood Pressure Blood Pressure Mean Pulse Ox 100 Oxygen Delivery Method Room Air MDM MDM MDM Narrative Medical decision making narrative: My end internal control analyst Tatian of her chest x-ray shows no acute process and this is consistent with final reading. Patient CBC is normal. Patient's electrolytes are normal other than potassium minimally low at 3.4. Glucose is minimally up at 134. I do not think these are causing her symptoms. Patient's troponin is negative despite almost 6 hours of symptoms. I do not think this needs to have a delta done as she really never had chest pain. She had a warm feeling and palpitations. Patient's initial blood pressure is up but her second is better. She has a history of blood pressure and used to be on enalapril. I will see if we can get her started again. We discussed the importance of calling for follow-up with primary care. We discussed reasons to return. Lab Data Attestation: I reviewed the patient's lab results. Labs: Laboratory Results - last 24 hr 06/09/23 15:45 WBC 6.8 RBC 4.52 Hgb 12.7 Hct 39.1 MCV 86.5 MCH 28.1 MCHC 32.5 RDW Std Deviation 39.5 RDW Coeff of [place] 12.4 Plt Count 318 MPV 10.3 Immature Gran % (Auto) 0.100 Neut % (Auto) 57.7 Lymph % (Auto) 34.0 Gibson % (Auto) 5.3 Eos % (Auto) 2.6 Baso % (Auto) 0.3 Absolute Neuts (auto) 3.9 Absolute Lymphs (auto) 2.31 Nucleated RBC % 0 Sodium 137 Potassium 3.4 L Chloride 105 Carbon Dioxide 27.0 Anion Gap 5 BUN 11 Creatinine 0.79 Estim Creat Clear Calc 57.65 Est GFR (MDRD) Af Amer 94 Est GFR (MDRD) Non-Af 78 BUN/Creatinine Ratio 13.9 Glucose 134 H Calcium 9.3 Troponin I High Sens 10 Radiography Diagnostic Testing: Clinical Impression(s) from Imaging Studies Chest X-Ray 06/09/23 15:55 IMPRESSION: No radiographic evidence of acute cardiopulmonary disease. Electronically Signed: Justina Ag MD at 16:17 EST Reading Location ID and State: [id number] / Tel , Service support , EKG Initial EKG: Comments: My independent interpretation of the patient's EKG shows a normal sinus rhythm with overall rate of 76. There is some motion artifact but no indication of PVC. No other ectopy. No acute ST elevation or depression. MO interval, QRS duration and QTc are normal. She evidently is having the flushed feeling and slight palpitations feeling with this. Discharge Plan Triage Chief Complaint: Hypertension ED Provider: Rigo Pickett Dx/Rx/DC Orders Clinical Impression: Heart palpitations, Feeling of warmness, Hypertension Instructions: ED Hypertension, Established Prescriptions: New enalapril maleate 5 mg tablet 5 mg PO DAILY Qty: 30 0RF No Action glipizide 5 MG tablet 5 mg PO DAILY Patient Comments: TAKE 1 TABLET EVERY DAY cyclobenzaprine 10 mg tablet 10 mg PO TID PRN (Reason: Muscle Spasm) Qty: 20 0RF Primary Care Provider: Kayla Bro Referrals: Gill Tyler [Non-Staff] - As soon as possible Kayla Bro PA [Primary Care Provider] - Disposition Disposition: Home, Self Care
--- NOTE | 2023-06-09 15:45 | EKG12_ITS ---
Test Reason : CHEST PAIN Blood Pressure : / mmHG Vent. Rate : 076 BPM Atrial Rate : 076 BPM P-R Int : 168 ms QRS Dur : 080 ms QT Int : 386 ms P-R-T Axes : 061 -14 016 degrees QTc Int : 434 ms Normal sinus rhythm Minimal voltage criteria for LVH, may be normal variant ( R in aVL ) Borderline ECG Confirmed by MANDI DIAZ, ANDREA ([id number]), food expeditor MIHAELA MCKOY ([id number]) on 06/13/2023 2:00:41 P M Referred By: PL Confirmed By:GENESIS RAYMOND MD
--- NOTE | 2023-06-09 15:55 | RAD_ITS ---
INDICATION: chest pain EXAMINATION/TECHNIQUE: X-RAY - XR Chest 1 View COMPARISON: FINDINGS: LINES/DEVICES: None. LUNGS: No consolidation, edema or effusion. No pneumothorax. MEDIASTINUM AND CARDIOVASCULAR STRUCTURES: Cardiac silhouette not enlarged. Central airways and mediastinal contour are unremarkable. BONES AND SOFT TISSUES: Unremarkable. RAD/Chest 1 View (Portable) IMPRESSION: No radiographic evidence of acute cardiopulmonary disease. Electronically Signed: Justina Ag MD at 16:17 EST Reading Location ID and State: [id number] / Tel , Service support ,
[2023-06-09 16:13] LABS: Absolute Lymphocyte Count 2.31 X10^3/uL (0.83-4.51); Absolute Neutrophil Count 3.9 X10^3/uL (2.0-7.7); Basophil# 0.02 X10^3/uL; Basophil% 0.3 % (0-1); Eosinophil# 0.18 X10^3/uL; Eosinophils% 2.6 % (0-5); Hematocrit 39.1 % (37-47); Hemoglobin 12.7 g/dL (12.0-15.0); Lymphocyte # 2.31 X10^3/ul (0.83-4.51); Mean Corp Hgb Conc 32.5 g/dL (32-36); Mean Corpuscular Hgb 28.1 pg (27.0-32.0); Mean Corpuscular Volume 86.5 fL (81-99); Mean Platelet Vol. 10.3 fl (6.2-12.0); Monocyte# 0.36 X10^3/uL; Monocyte% 5.3 % (0-10); NRBC Flagged by Analyzer 0 % (0-5); Neutrophil # 3.92 X10^3/uL (2.7-7.7); Neutrophil % 57.7 % (47-70); Platelet Count 318 K/mm3 (150-450); RBC Distribution Width CV 12.4 % (11.6-14.6); RBC Distribution Width SD 39.5 fl (35.1-43.9); Red Blood Count 4.52 M/mm3 (4.2-5.4); White Blood Count 6.8 K/mm3 (4.4-11.0)
[2023-06-09 16:14] LABS: Anion Gap 5 (5-15); BUN 11 mg/dL (7-18); BUN/Creat Ratio 13.9 RATIO (10-20); Calcium,Total 9.3 mg/dL (8.5-10.1); Chloride 105 mmol/L (98-107); Creatinine, Serum 0.79 mg/dL (0.55-1.02); EST Glomerular Filtration Rate 78 mL/min (>60); Est Glom Filt Rate - Afr Amer 94 mL/min (>60); Estimated Creatinine Clearance 57.65 ml/min; Glucose 134 mg/dL (74-106); Potassium 3.4 mmol/L (3.5-5.1); Sodium Level 137 mmol/L (136-145); Troponin-I HS 10 pg/mL (3.0-54.0)
[2023-06-09 17:22] VITALS: BP 167/85; PULSE 83; RESP 16; O2SAT 99
[2023-06-09 17:44] VITALS: BP 168/85; PULSE 75; RESP 16; O2SAT 98
== END 2023-06-09 17:45 | disposition home or self-care (01) ==
PROVIDERS: Emergency Provider Emergency Medicine; PCP Physician Assistant; Visit Provider Emergency Medicine
DX: R00.2 Palpitations (principal); E11.9 Type 2 diabetes mellitus without complications; I10 Essential (primary) hypertension; Z87.891 Personal history of nicotine dependence
CPT/HCPCS: 71045; 80048; 84484; 85025; 87428; 93005; 99284; A4216